=== PATIENT | male | born 1985 | race Caucasian/White ===

== ENCOUNTER 2016-07-16 07:04 | Inpatient (IN) | payer OTHER ==
[~2016-07-16] VITALS: Ht 180.3 cm; Wt 68.6 kg
[~2016-07-16 07:04] MED LIST: ERGO500014 PO; FER325 PO; LIPA1CAP6 PO
[2016-07-16] MEDS ORDERED: BELLADONNA/PHENOBARBITAL TAB PO STA (08:15)
[2016-07-16] MEDS ORDERED: SOD CHLORIDE 0.9% 1,000 ML IV STA (08:15)
[2016-07-16] MEDS ORDERED: ONDANSETRON 4 MG INJ IV STA (08:15)
[2016-07-16] MEDS ORDERED: LIDOCAINE/MYLANTA 40 ML BTL PO STA (08:15)
[2016-07-16] MEDS ORDERED: DICLOFENAC SODIUM 37.5 MG/ML VIAL IV STA (08:15)
[2016-07-16 08:19] LABS: ADD SCAN DIFF NO
[2016-07-16 08:32] LABS: BASOPHIL # 0.1 10^3/ul (0.0-0.1); BASOPHILS % 0.7 % (0.0-2.0); EOSINOPHILS # 0.1 10^3/ul (0.0-0.5); EOSINOPHILS % 1.2 % (0.0-7.0); HEMATOCRIT 46.4 % (42.0-52.0); HEMOGLOBIN 15.9 g/dl (14.0-18.0); LYMPHOCYTES # 3.6 10^3/ul (0.8-2.9); LYMPHOCYTES % 35.3 % (15.0-51.0); MEAN CORPUSCULAR HEMOGLOBIN 31.4 pg (29.0-33.0); MEAN CORPUSCULAR HGB CONC 34.3 g/dl (32.0-37.0); MEAN CORPUSCULAR VOLUME 91.7 fl (82.0-101.0); MEAN PLATELET VOLUME 9.6 fl (7.4-10.4); MONOCYTE # 1.5 10^3/ul (0.3-0.9); MONOCYTES % 14.5 % (0.0-11.0); NEUTROPHIL # 4.9 10^3/ul (1.6-7.5); NEUTROPHILS % 48.1 % (39.0-77.0); PLATELET COUNT 292 10^3/UL (140-415); RED BLOOD COUNT 5.06 10^6/ul (4.70-6.10); RED CELL DISTRIBUTION WIDTH 15.3 % (11.5-14.5); WHITE BLOOD COUNT 10.2 10^3/ul (4.8-10.8)
[2016-07-16 08:38] LABS: ALBUMIN 4.1 g/dl (3.3-4.9); CHLORIDE 103 mmol/L (97-110)
[2016-07-16 08:39] LABS: POTASSIUM 4.2 mmol/L (3.5-5.1); SODIUM 146 mmol/L (135-144)
[2016-07-16 08:41] LABS: ALANINE AMINOTRANSFERASE 37 IU/L (13-69); ALKALINE PHOSPHATASE 105 IU/L (42-121); ANION GAP 21 (8-16); ASPARTATE AMINO TRANSFERASE 60 IU/L (15-46); BILIRUBIN,INDIRECT 0.2 mg/dl (0-1.1); BILIRUBIN,TOTAL 0.2 mg/dl (0.2-1.3); BLOOD UREA NITROGEN 10 mg/dl (7-20); CALCIUM 8.8 mg/dl (8.4-10.2); CARBON DIOXIDE 26 mmol/L (21-31); CREATININE 0.72 mg/dl (0.61-1.24); GLUCOSE 91 mg/dl (70-220); TOTAL PROTEIN 7.8 g/dl (6.1-8.1)
[2016-07-16 08:53] LABS: INR 0.97; PROTIME 12.9 Sec (12.2-14.2)
[2016-07-16 08:56] LABS: TROPONIN-I < 0.012 ng/ml (0.00-0.12)
[2016-07-16] MEDS ORDERED: HYDR-902 PO (08:59)
[2016-07-16] MEDS ORDERED: ZOF8 PO (08:59)
[2016-07-16] MEDS ORDERED: ALPR1TAB2 PO (08:59)
[2016-07-16] MEDS ORDERED: OMEP20CA16 PO (09:00)
[2016-07-16 09:14] LABS: ADD UMIC YES; URINE BILIRUBIN (Dip) NEGATIVE (NEGATIVE); URINE BLOOD (Dip) TRACE (NEGATIVE); URINE COLOR LT. YELLOW (YELLOW); URINE GLUCOSE (Dip) NEGATIVE (NEGATIVE); URINE KETONES (Dip) NEGATIVE (NEGATIVE); URINE LEUKOCYTE ESTERASE (Dip) NEGATIVE (NEGATIVE); URINE NITRITE (Dip) NEGATIVE (NEGATIVE); URINE TOTAL PROTEIN (Dip) NEGATIVE (NEGATIVE); URINE UROBILINOGEN (Dip) 0.2 E.U./dL (0.1-1.0)
[2016-07-16 09:31] LABS: URINE RBCS 0-2 /HPF (0)
[2016-07-16] MEDS ORDERED: FAMO40TA52 PO (09:57)
[2016-07-16] MEDS ORDERED: MAG355OR14 PO (09:57)
[2016-07-16] MEDS ORDERED: ONDA-43 PO (09:57)
--- NOTE | 2016-07-16 10:02 | ERD ---
ER Documentation Chief Complaint Date/Time DATE: 07/16/16 TIME: 09:57 Chief Complaint ap, hx pancreatitis , daily etoh HPI 30-year-old man brought in by his mom for complaints of sharp nonexertional nonradiating epigastric abdominal pain as well as multiple episodes of clear nonbloody nonbilious emesis, he feels weak and has not been able to hold anything down. He denies diarrhea, no melena or blood per rectum, no fevers or chills, no chest pain or shortness of breath. 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 ROS All systems reviewed and are negative except as per history of present illness. Medications Home Meds Active Scripts Ondansetron Hcl* (Zofran*) 4 Mg Tab, 4 MG PO Q6H Y for NAUSEA AND OR VOMITING, # 12 TAB Prov:GLENN LOPEZ MD 07/16/16 Mag Hydrox/Al Hydrox/Simeth (Maalox Advanced Suspension) 355 Ml Oral.susp, 2 TSP PO TID for PAIN, #24 OZ Prov:GLENN LOPEZ MD 07/16/16 Famotidine* (Famotidine*) 40 Mg Tablet, 40 MG PO HS, #30 TAB Prov:GLENN LOPEZ MD 07/16/16 Reported Medications Omeprazole* (Omeprazole*) 20 Mg Capsule.dr, 20 MG PO DAILY, #30 CAP 07/16/16 Ondansetron Hcl* (Zofran*) 8 Mg Tab, 8 MG PO Q6H Y for NAUSEA AND OR VOMITING, TAB 07/16/16 Hydrocodone/Acetaminophen ([place] 10-325 Tablet) 1 Each Tablet, 1 EACH PO TID Y for PAIN, TAB 07/16/16 Alprazolam* (Xanax*) 1 Mg Tab, 1 MG PO Q8H Y for ANXIETY, TAB 07/16/16 Yfgqzz-Sjzqoaca-Vbbqwhs* (Sharon MICHAUD* 24,000) 24,000 L-76,000-120,000 Unit Capsule.dr, 1 CAP PO WITH MEALS, CAP 07/21/14 Discontinued Reported Medications Ergocalciferol* (Drisdol* (Vitamin D2)) 50,000 Unit Capsule, 33583 UNIT PO Q7D, CAP 07/30/15 Ferrous Sulfate* (Ferrous Sulfate*) 325 Mg Tabec, 325 MG PO TID, TAB 07/30/15 Allergies Allergies: Coded Allergies: morphine (Verified Allergy, Intermediate, itchy, hives, 07/16/16) PMhx/Soc Alcoholic gastritis, alcohol abuse, recurrent pancreatitis, chronic pain syndrome, opioid abuse, 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 History of Surgery: Yes (2013 PARTIAL PANCREOTOMY, 2007 GALLBLADDER REMOVAL) Anesthesia Reaction: No Hx Neurological Disorder: No Hx Respiratory Disorders: No Hx Cardiac Disorders: No Hx Psychiatric Problems: No Hx Miscellaneous Medical Probl: Yes (pabncreatitis and etohism) Hx Alcohol Use: Yes (1 wk of binge drinking) Hx Substance Use: Yes (MARIJUANA daily) Hx Tobacco Use: No Smoking Status: Never smoker FmHx Family History: No diabetes Physical Exam Vitals Vital Signs Date Time Temp Pulse Resp B/P Pulse Ox O2 Delivery O2 Flow Rate FiO2 07/16/16 10:00 98.1 76 18 132/86 99 07/16/16 07:06 98.1 78 18 136/90 99 Physical Exam GENERAL: Well-developed, well-nourished, appears dehydrated, afebrile HEENT: Dry mucous membranes, pink conjunctiva, no cervical spine tenderness or step-off deformities, no goiter, no jaundice or icterus, extraocular movements intact without pain. No submandibular induration, and no pharyngeal erythema NEURO: Alert and oriented 3, cranial nerves II through XII intact bilaterally, pupils equal round reactive to light, no focal deficits or facial asymmetry, sensation intact distally Strength 5/5 in upper and lower extremities bilaterally CARDIAC: Regular rate and rhythm, no murmurs rubs or gallops LUNGS: Clear bilaterally no wheezing crackles or stridor ABDOMEN: Soft nontender, no guarding, no rigidity, no rebound, no psoas sign no obturator sign. Normoactive bowel sounds SKIN: Warm and dry to touch, no abrasions, contusions, or hematomas, no lacerations, no ecchymosis, no target lesions, and without ulcers EXTREMITIES: No clubbing cyanosis or edema, calves are bilaterally symmetrical, no Homans sign, no popliteal cord sign. Distal pulses equal and bilateral PSYCH: Normal affect without agitation or irritability Result Diagram: 07/16/16 0746 07/16/16 0746 Results 24 hrs Laboratory Tests Test 07/16/16 07:46 07/16/16 08:00 Alanine Aminotransferase (ALT/SGPT) 37IU/L Albumin 4.1g/dl Albumin/Globulin Ratio 1.10 Alkaline Phosphatase 105IU/L Anion Gap 21 Aspartate Amino Transf (AST/SGOT) 60IU/L Basophils # 0.110^3/ul Basophils % 0.7% Blood Urea Nitrogen 10mg/dl Calcium Level 8.8mg/dl Carbon Dioxide Level 26mmol/L Chloride Level 103mmol/L Creatinine 0.72mg/dl Direct Bilirubin 0.00mg/dl Eosinophils # 0.110^3/ul Eosinophils % 1.2% Globulin 3.70g/dl Glucose Level 91mg/dl Hematocrit 46.4% Hemoglobin 15.9g/dl INR International Normalized Ratio 0.97 Indirect Bilirubin 0.2mg/dl Lipase 209U/L Lymphocytes # 3.610^3/ul Lymphocytes % 35.3% Mean Corpuscular Hemoglobin 31.4pg Mean Corpuscular Hemoglobin Concent 34.3g/dl Mean Corpuscular Volume 91.7fl Mean Platelet Volume 9.6fl Monocytes # 1.510^3/ul Monocytes % 14.5% Neutrophils # 4.910^3/ul Neutrophils % 48.1% Nucleated Red Blood Cells # 0.010^3/ul Nucleated Red Blood Cells % 0.0/100WBC Platelet Count 89225^3/UL Potassium Level 4.2mmol/L Prothrombin Time 12.9Sec Prothrombin Time Ratio 1.0 Red Blood Count 5.0610^6/ul Red Cell Distribution Width 15.3% Sodium Level 146mmol/L Total Bilirubin 0.2mg/dl Total Protein 7.8g/dl Troponin I < 0.012ng/ml White Blood Count 10.210^3/ul Urine Bilirubin NEGATIVE Urine Clarity CLEAR Urine Color LT. YELLOW Urine Glucose NEGATIVE% Urine Hemoglobin TRACE Urine Ketones NEGATIVE Urine Leukocyte Esterase NEGATIVE Urine Microscopic RBC 0-2/HPF Urine Microscopic WBC 0-2/HPF Urine Nitrite NEGATIVE Urine Specific [place] <=1.005 Urine Total Protein NEGATIVE Urine Urobilinogen 0.2 E.U./dL Urine pH 5.5 Current Medications Medications (Trade) Dose Ordered Sig/Desiree Route PRN Reason Start Time Stop Time Status Last Admin Dose Admin Diclofenac Sodium 37.5 mg 37.5 mg ONCE STAT IV 07/16/16 08:15 07/16/16 08:16 DC 07/16/16 08:35 Sodium Chloride (NS) 1,000 ml @ 2,000 mls/hr Q30M STAT IV 07/16/16 08:15 07/16/16 08:44 DC 07/16/16 08:34 Ondansetron HCl (Zofran Inj) 4 mg ONCE STAT IV 07/16/16 08:15 07/16/16 08:16 DC 07/16/16 08:35 Miscellaneous Medication (Gi Cocktail (2)) 40 ml ONCE STAT PO 07/16/16 08:15 07/16/16 08:16 DC 07/16/16 08:34 Belladonna/ Phenobarbital () 2 tab ONCE STAT PO 07/16/16 08:15 07/16/16 08:16 DC 07/16/16 08:35 Oxycodone/ Acetaminophen (Percocet (5/ 325)) 1 tab ONCE ONCE PO 07/16/16 11:30 07/16/16 11:31 DC 07/16/16 11:27 Procedures/MDM IV line was established 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 Patient was afebrile. EKG performed, read by me: 69 bpm, normal sinus rhythm, normal axis, no acute ST segment changes, narrow QRS complex, with good R-wave progression in precordial leads. I administered diclofenac 38 mg IV 1, 2 L normal saline intravenously for dehydration, Zofran 4 mg IV, and a GI cocktail 30 cc p.o. with good effect. CBC and electrolytes were normal, liver function tests were normal, troponin was negative. Lipase was normal For continued pain I administered Percocet [address] scan of abdomen pelvis revealed distention of the anastomosis site and partial bowel obstruction. Please refer to radiologist dictation for full report. I obtain GI consultation with Dr. Carlson, regarding the patient's presentation, symptomatology, and CT scan findings. He recommended inpatient management for continued IV hydration and both GI and surgery consultation. Dr. Torres surgeon has been paged. Departure Diagnosis: Primary Impression: Vomiting Vomiting type: unspecified Vomiting Intractability: non-intractable Nausea presence: with nausea Qualified Code: R11.2 - Non-intractable vomiting with nausea, unspecified vomiting type Additional Impressions: Dehydration Alcoholic Alcoholic gastritis Chronicity: acute Gastritis bleeding: without bleeding Qualified Code: K29.20 - Acute alcoholic gastritis without hemorrhage Opioid abuse Chronic pain Chronic pain type: chronic pain syndrome Qualified Code: G89.4 - Chronic pain syndrome Condition: Good Patient Instructions: Gastritis (Adult), Vomiting (6Y-Adult), Alcohol Abuse GLENN LOPEZ MD Jul 16, 2016 10:02
--- NOTE | 2016-07-16 11:01 | RADRPT ---
PROCEDURE: CT Abdomen and Pelvis without contrast CLINICAL INDICATION: Abdominal pain, history of pancreatitis TECHNIQUE: Transaxial images were obtained through the abdomen and pelvis on a multi-slice scanner without the intravenous contrast administration. No oral contrast had previously been given. Sagit simon and coronal re-formations were subsequently reconstructed. One or more of the following dose reduction techniques were used: - Automated exposure control. - Adjustment of the mA and/or kV according to patient size. - Use of iterative reconstruction technique. Radiation dose: CTDIvol = 7.63 mGy; DLP = 449.46 mGy-cm. COMPARISON: 07/30/2015 FINDINGS: Lung bases: Discoid atelectasis is seen in the right middle lobe and minimally within the lateral le ft lower lung zone. Liver: The liver is mildly enlarged with no focal lesion identified. There is fatty infiltration of the left lobe. Gallbladder: Surgical allison are seen in the gallbladder fossa. Bile ducts: The intra and extrahepatic bile ducts are normal in caliber. Pancreas: No pancreatic mass or inflammation is identified. Spleen: The spleen is again surgically absent. Adrenals: Normal with no mass identified. Kidneys, ureters and bladder: A 9 mm dense nodule is seen extend superiorly off the medial superior pole of the left kidney which may represent a complex cyst. The kidneys are otherwise unremarkable without hydronephrosis. The ureters are normal in caliber and no ureteroliths are identified. The bl adder appears unremarkable. A surgical allison seen superior to the bladder. Reproductive organs: The prostate is not enlarged. Stomach and bowel: The stomach appears unremarkable. An anastomotic allison are seen within the jej unum within the left upper quadrant associated with mild dilatation of bowel measuring approximately 4.3 cm in cross diameter. This suggests a low grade partial obstruction. The more distal small martínez wel appears unremarkable. Stool is seen within the colon without evidence of colonic obstruction or inflammation. Appendix: A normal vermiform appendix is evident. Peritoneum: No free intraperitoneal fluid or air is identified. Aorta: Normal in caliber with no aneurysmal dilatation. IVC: Unremarkable. Lymph nodes: No pathologically enlarged nodes are identified. Osseous structures: Avendaño nodes are seen within the superior endplate of T11. IMPRESSION: 1. When compared to the previous CT of 07/30/2015, anastomotic allison are again seen within jejunu m and there is somewhat increased dilatation of jejunum at the site up to 4.3 cm in cross diameter s uspicious for a low grade partial obstruction. Stool is again seen to the colon and there is no jennifer dence of bowel inflammation. A normal vermiform appendix is evident. 2. Status post splenectomy and cholecystectomy, unchanged. No bile duct dilatation is evident and no pancreatic mass or inflammation is noted. 3. Mild persistent hepatomegaly with heterogeneous fatty infiltration. 4. A 9 mm dense nodule again extends off the superior pole left kidney which may represent a hemorr hagic or complex cyst. There is no evidence of urinary outflow obstruction or ureterolithiasis. 4. Schmorl's node again seen at the superior endplate of T11. Physician Rosalva Date Time Electronically viewed and signed by Physician Rosalva on 07/16/2016 11:00 /
[2016-07-16] MEDS ORDERED: OXYCODONE/ACETAMINOPHEN (5/325) TAB PO ONE (11:30)
[2016-07-16] MEDS ORDERED: LIDOCAINE 2% VISC 15 ML CUP PO ONE (13:00)
[2016-07-16 13:03] VITALS: TEMP 98.1
[2016-07-16 13:30] VITALS: BP 137/86; PULSE 85; RESP 18; Ht 180.3 cm; Wt 68.6 kg
[2016-07-16] MEDS ORDERED: HYDROmorphONE 1 MG/ML SYG IV PRN ×2 (14:00→18:00)
[2016-07-16] MEDS: D5W-0.45 NACL + KCL 10 MEQ 1,000 ML IV SCH ×2 (14:00→23:12)
[2016-07-16] MEDS ORDERED: NACL 0.9% 3 ML SYG IV SCH (14:00)
--- NOTE | 2016-07-16 16:14 | HP ---
DATE OF ADMISSION: 07/16/2016 REASON FOR ADMISSION: Abdominal pain with associated nausea and vomiting. CONSULTANTS: Surgery HISTORY OF PRESENT ILLNESS: This is a 30-year-old male with a past medical history of chronic pancreatitis, status post multiple abdominal surgeries including distal pancreatectomy, splenectomy, and cholecystectomy, who came to the emergency room with chief complaint of sharp, nonexertional, nonradiating epigastric abdominal pain as well as multiple episodes of nonbloody, nonbilious emesis that has been going on for the past 1 week. The patient verbalized that he has been drinking beer on a regular basis. The patient also verbalized a few episodes of diarrhea. The patient verbalized subjective fevers and chills. The patient denied any chest pain, headache, dyspnea, dysuria, hematuria or pyuria. In the emergency room, the patient's labs were within normal limits except the patient had a slightly elevated AST. The patient underwent a CT scan of the abdomen and pelvis that showed anastomotic allison seen with the jejunum and there is somewhat increased dilatation of the jejunum at the site up to 4.3 cm in gross diameter, suspicious for a low-grade partial small-bowel obstruction. Hence, the patient had an NG tube inserted in the emergency room and the patient was transferred to medical/surgical floor. PAST MEDICAL HISTORY: Alcoholic pancreatitis. ETOH abuse. Anxiety. Chronic pain. PAST SURGICAL HISTORY: Pancreatectomy, cholecystectomy, splenectomy. HOME MEDICATIONS: 1. Xanax 1 mg p.o. q.8h. p.r.n. anxiety. 2. Star 10/325 one tablet p.o. t.i.d. p.r.n. pain. 3. Famotidine 10 mg p.o. at bedtime. 4. Creon DR 1 capsule p.o. with meals. 5. Zofran 8 mg p.o. q.6h. p.r.n. nausea, vomiting. ALLERGIES: MORPHINE. SOCIAL HISTORY: The patient lives at home with his mom. The patient continues to drink on a daily basis. Daily marijuana use. No tobacco use. REVIEW OF SYSTEMS: A 12-point review of systems were made and review of systems are negative other than what is mentioned in the history of present illness. PHYSICAL EXAMINATION: VITAL SIGNS: Temperature 98.1, pulse is 74, respiratory rate 18, blood pressure 144/82, oxygen saturation 99% on room air. GENERAL: This is a well-built, well-nourished male lying in bed, in mild distress secondary to underlying abdominal pain. HEENT: Head normocephalic and atraumatic. Eyes: Anicteric sclerae. Conjunctivae clear. ENT: Nasal septum is midline. NG tube in the naris. Oral mucosa is dry. NECK: Supple. No JVD noticed. RESPIRATORY: Bilaterally clear to auscultation. No adventitious breath sounds. No use of accessory muscles of respiration. CARDIAC: Regular rate and rhythm. No murmurs. ABDOMEN: Multiple surgical scars on the abdomen. Diffuse abdominal tenderness. EXTREMITIES: No cyanosis, no clubbing, no edema. Peripheral pulses palpable. NEUROLOGIC: The patient is awake, alert and oriented. Cranial nerves are grossly intact. LABORATORY AND DIAGNOSTIC DATA: WBC 10.2, hemoglobin 15.9, hematocrit 46.4, platelet count 292. Sodium 146, potassium 4.0, chloride 103, carbon dioxide 26 , anion gap 21, BUN 10, creatinine 0.72, glucose 91, calcium 8.8. AST 60, ALT 37, alkaline phosphatase 105, total protein 7.8. Troponin less than 0.012. PT 12.9, INR 0.95. Urinalysis: Urine nitrite negative, leukocyte esterase negative. Urine microscopic WBC 0-2. CT scan of the abdomen and pelvis: Anastomotic allison are seen with the jejunum and there is somewhat increased dilatation of the jejunum at the site up 4.3 cm in gross diameter, suspicious for a low-grade partial obstruction. Stool is again seen through the colon and there is no evidence of bowel inflammation. A normal appendix is evident. Status post splenectomy and cholecystectomy. Mild persistent hepatomegaly and hypodense fatty infiltration. IMPRESSION: This is a 30-year-old male with past medical history of alcoholism, chronic pancreatitis, status post pancreatectomy, cholecystectomy and splenectomy, who came to the emergency room with chief complaint of abdominal pain with associated multiple episodes of nonbilious and nonbloody vomiting, who was found to have evidence of possible early low-grade partial bowel obstruction who will be admitted here for further treatment and evaluation. ASSESSMENT AND PLAN: 1. Acute abdominal pain. CT showing possible low-grade partial small-bowel obstruction. The patient has an NG tube in place. The patient will be kept n.p.o. The patient will be maintained on NG tube decompression. The patient will be provided with adequate pain control. General surgery will be consulting on this patient. 2. ETOH abuse. The patient will be maintained on p.r.n. Ativan for any anxiety. The patient will be started on a tapering dose of Librium. He will be closely monitored for any alcohol withdrawal delirium. 3. Chronic pain. The patient will be provided with adequate pain control. Plan. The patient will be admitted to inpatient medical/surgical floor. The patient will be kept n.p.o. The patient will be started on DVT prophylaxis and gastrointestinal prophylaxis. The patient will remain a full code. Activities will be with assist. The rest of the patient's management will be based on the clinical course, the results of the diagnostic studies, and input from consultants. Based on the patient's clinical presentation, he most probably requires at least 1 midnight's stay for further management and evaluation of his clinical presentation. The case and management of this patient was fully discussed with Dr. Carvalho. Approximately 50 minutes were spent on the history and physical on this patient. MARTIN CARVALHO MD, AM/ARBEN Conf#: [id number] DID#: [id number] MTDD
[2016-07-16] MEDS: ONDANSETRON 4 MG INJ IV PRN ×2 (16:19→23:07)
--- NOTE | 2016-07-16 16:34 | CONS ---
Date/Time of Note Date/Time of Note DATE: 07/16/16 TIME: 16:12 Assessment/Plan Assessment/Plan Additional Assessment/Plan [facility] SUBSEQUENT INPATIENT CONSULTATION NOTE PLACE OF SERVICE: [facility], 6th floor DATE OF ADMISSION: 07/16/16 DATE OF CONSULTATION: 07/16/16 ASSESSMENT AND PLAN: A very pleasant 30-year-old gentleman, well known to me since August 2012 with a very complex past medical and surgical history, who was admitted through the emergency department to [facility] on 02/22 with what appears to be abdominal pain. I do not believe he has a surgical bowel obstruction (CT and his clinical presentation does not support this). I recommend upper GI with SBFT and to d/c NG likely today after above. GI consultation will likely also help since he may need endoscopy to further delineate. There is certainly no indication for acute surgical intervention. I' ve explained all of this to the patient and answered all his questions to the best my ability. With above assessment, I've recommend the followin. Upper GI with SBFT 2. D/c NG 3. Consider GI consultation (? need for EGD to eval for ulcer disease) Thank you very much for having me involved in the care of this very pleasant young gentleman and his wonderful family. I will be available to answer any questions at area [phone]. TOTAL VISIT TIME: 45 minutes of which more than half was spent in [id number] discussion with the patient (no family present during my discussions with patient), as well as coordination of care between multiple physicians and providers. Updated Clinical Summary: The patient is a very pleasant 28-year-old young man, very well known to me and my service over the course of the last 2.5 years for treatment of chronic pancreatitis that involved several operative interventions including a distal pancreatectomy and splenectomy followed by a distal pancreatic jejunostomy. Initially the patient was suffering from chronic pancreatitis due to alcoholism that he started when he was a young 14-year-old. 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 After this, he had a 6 year period where he was in and out of the hospital every few weeks and multiple diagnostic tests and interventions were done until we had a chance to see him, and over the course of the next year and a half to 2 years, managed to get his chronic pancreatitis issues settled with above operative interventions. In 2016 and 2017, patient started having more visits through the ED and being hospitalized with reported resumption of ETOH. Comorbidities: 1. History of chronic pancreatitis, due to prior alcoholism, status post major pancreatitis at age 20 and then 6 years of chronic pain, multiple interventions , until he underwent the above named operations. 2. History of pain medication addiction and pain intolerance. 3. History of malnutrition, although the patient has been putting on more weight in the last number of months and does not seem to be suffering from this any longer. 4. History of anxiety. 5. 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 6. History of depression 7. Cholecystectomy, splenectomy and distal pancreatectomy. 8. Distal pancreatic jejunostomy. HISTORY OF PRESENT ILLNESS: Patient was admitted through the emergency department to [facility] 07/16/16 with abdominal pain. No fevers and chills, no change in bowel or bladder habits, no other major symptom. ALLERGIES: REPORTEDLY MORPHINE WITH UNKNOWN REACTION MEDICATIONS See below and EHR summary. SOCIAL HISTORY: The patient lives with his family. He has used alcohol in the past, had been sober for the a few years with resumption of ETOH as of a few months ago. There has been no history of known smoking or intravenous drug use. He also has been treated with a pain specialist clinic as an outpatient as well. FAMILY HISTORY: There are no significant medical, surgical or oncologic issues in the family as reported by the patient or reflected in the chart. REVIEW OF SYSTEMS: No pertinent +'s or -'s in a complete 14-point review of systems. PHYSICAL EXAMINATION GENERAL: The patient appears to be a very pleasant young gentleman of descent lying in bed, appearing stated age, WD&WN and otherwise in no acute distress. BMI 25.7 (previously 16.3 in 2015). VITAL SIGNS: AVSS (please also see below) HEENT: Normocephalic and atraumatic. Extraocular muscles and hearing are grossly intact bilaterally and symmetrically. Sclerae are nonicteric. Oral cavity is clear; oral mucosa appear to be pink and moist. Dentition: fair. NECK: Supple. There is no lymphadenopathy or JVD. There is no submental, submandibular or supraclavicular lymphadenopathy. CHEST: Rises symmetrically with each breath; patient is breathing comfortably. There are no audible wheezes, rales or rhonchi on the gross exam. HEART: Pulse is regular and palpable on the right wrist. Capillary refill is normal. Carotid pulses are palpable bilaterally and symmetrically in the neck. EXTREMITIES: Lower extremities contain no pitting edema around the ankles bilaterally and symmetrically. ABDOMEN: Abdomen is soft, for the most part nontender and nondistended. No evidence of ascites, organomegaly, caput medusae, engorged subcutaneous veins, or other abnormalities. There are no peritoneal signs or guarding. NG with no major output. SKIN: Appears to be pink and feels warm to touch. NEUROLOGIC: Awake, alert, and follows commands appropriately. LABORATORY DATA: See below IMAGING: See electronic chart. Please note that I've personally reviewed all pertinent available images and I agree in general with their overall reported findings. Consultation Date/Type/Reason Admit Date/Time Jul 16, 2016 at 13:15 Initial Consult Date Exam/Review of Systems Vital Signs Vitals Vital Signs Date Time Temp Pulse Resp B/P Pulse Ox O2 Delivery O2 Flow Rate FiO2 07/16/16 13:03 98.1 74 18 144/82 99 Results Result Diagram: 07/16/16 0746 07/16/16 0746 Results 24 hrs Laboratory Tests Test 07/16/16 07:46 07/16/16 08:00 Alanine Aminotransferase (ALT/SGPT) 37 Albumin 4.1 Albumin/Globulin Ratio 1.10 Alkaline Phosphatase 105 Anion Gap 21 H Aspartate Amino Transf (AST/SGOT) 60 H Basophils # 0.1 Basophils % 0.7 Blood Urea Nitrogen 10 Calcium Level 8.8 Carbon Dioxide Level 26 Chloride Level 103 Creatinine 0.72 Direct Bilirubin 0.00 Eosinophils # 0.1 Eosinophils % 1.2 Globulin 3.70 H Glucose Level 91 Hematocrit 46.4 Hemoglobin 15.9 # INR International Normalized Ratio 0.97 Indirect Bilirubin 0.2 Lipase 209 Lymphocytes # 3.6 H Lymphocytes % 35.3 Mean Corpuscular Hemoglobin 31.4 Mean Corpuscular Hemoglobin Concent 34.3 Mean Corpuscular Volume 91.7 Mean Platelet Volume 9.6 Monocytes # 1.5 H Monocytes % 14.5 H Neutrophils # 4.9 Neutrophils % 48.1 Nucleated Red Blood Cells # 0.0 Nucleated Red Blood Cells % 0.0 Platelet Count 292 Potassium Level 4.2 Prothrombin Time 12.9 Prothrombin Time Ratio 1.0 Red Blood Count 5.06 Red Cell Distribution Width 15.3 H Sodium Level 146 H Total Bilirubin 0.2 Total Protein 7.8 Troponin I < 0.012 White Blood Count 10.2 # Urine Bilirubin NEGATIVE Urine Clarity CLEAR Urine Color LT. YELLOW Urine Glucose NEGATIVE Urine Hemoglobin TRACE Urine Ketones NEGATIVE Urine Leukocyte Esterase NEGATIVE Urine Microscopic RBC 0-2 Urine Microscopic WBC 0-2 Urine Nitrite NEGATIVE Urine Specific [place] <=1.005 L Urine Total Protein NEGATIVE Urine Urobilinogen 0.2 E.U./dL Urine pH 5.5 Medications Medications Current Medications Potassium Chloride/Dextrose/ Sod Cl (D5-1/2ns + KCl 10 Meq) 1,000 ml @ 100 mls/ hr Q10H IV ; Start 07/16/16 at 14:00 Hydromorphone HCl (Dilaudid) 1 mg Q6H PRN IV PAIN Last administered on t 13:57; Admin Dose 1 MG; Start 07/16/16 at 14:00 Ondansetron HCl (Zofran Inj) 4 mg Q6H PRN IV NAUSEA AND/OR VOMITING; Start 02/22 at 14:00 Famotidine (Pepcid Iv) 20 mg Q12 IV ; Start 07/16/16 at 21:00 Lorazepam (Ativan) 1 mg Q2H PRN IV Anxiety; Start 07/16/16 at 14:00 Chlordiazepoxide (Librium) 50 mg TID NGT ; Start 07/16/16 at 21:00 NILS JO M.D. Jul 16, 2016 16:34
[2016-07-16] MEDS: HYDROmorphONE 1 MG/ML SYG IV PRN ×2 (19:02→23:07)
[2016-07-16 20:55] VITALS: BP 155/93; RESP 18
[2016-07-16] MEDS: FAMOTIDINE 20 MG INJ IV SCH (21:27)
[2016-07-16] MEDS: CHLORDIAZEPOXIDE 25 MG CAP NGT SCH (21:27)
[2016-07-17] MEDS: HYDROmorphONE 1 MG/ML SYG IV PRN ×6 (03:09→23:03)
[2016-07-17 05:46] LABS: ADD SCAN DIFF NO
[2016-07-17] MEDS ORDERED: CEPASTAT LOZENGE MT PRN (06:15)
[2016-07-17 06:17] LABS: ALBUMIN 3.7 g/dl (3.3-4.9)
[2016-07-17 06:18] LABS: POTASSIUM 3.9 mmol/L (3.5-5.1)
[2016-07-17 06:19] LABS: ABNORMAL IP MESSAGE 1; BASOPHIL # 0.1 10^3/ul (0.0-0.1); BASOPHILS % 0.4 % (0.0-2.0); EOSINOPHILS # 0.1 10^3/ul (0.0-0.5); EOSINOPHILS % 0.7 % (0.0-7.0); HEMATOCRIT 44.6 % (42.0-52.0); HEMOGLOBIN 14.8 g/dl (14.0-18.0); LYMPHOCYTES # 2.3 10^3/ul (0.8-2.9); LYMPHOCYTES % 14.3 % (15.0-51.0); MEAN CORPUSCULAR HEMOGLOBIN 31.6 pg (29.0-33.0); MEAN CORPUSCULAR HGB CONC 33.2 g/dl (32.0-37.0); MEAN CORPUSCULAR VOLUME 95.3 fl (82.0-101.0); MEAN PLATELET VOLUME 9.9 fl (7.4-10.4); MONOCYTE # 1.8 10^3/ul (0.3-0.9); MONOCYTES % 11.2 % (0.0-11.0); NEUTROPHIL # 11.6 10^3/ul (1.6-7.5); NEUTROPHILS % 73.1 % (39.0-77.0); PLATELET COUNT 260 10^3/UL (140-415); RED BLOOD COUNT 4.68 10^6/ul (4.70-6.10); WHITE BLOOD COUNT 15.8 10^3/ul (4.8-10.8)
[2016-07-17 06:19] LABS: CHOL/HDL RATIO 1.5 RATIO; MAGNESIUM 1.8 mg/dl (1.7-2.5); PHOSPHORUS 3.7 mg/dl (2.5-4.9)
[2016-07-17 06:20] LABS: BILIRUBIN,INDIRECT 0.7 mg/dl (0-1.1); BILIRUBIN,TOTAL 0.7 mg/dl (0.2-1.3); CREATININE 0.69 mg/dl (0.61-1.24)
[2016-07-17 06:21] LABS: ALBUMIN/GLOBULIN RATIO 1.12; CALCIUM 7.9 mg/dl (8.4-10.2)
[2016-07-17 06:44] LABS: THYROID STIMULATING HORMONE 3.74 MIU/L (0.465-4.680)
[2016-07-17] MEDS: ONDANSETRON 4 MG INJ IV PRN ×2 (07:00→13:43)
[2016-07-17 07:25] VITALS: BP 150/95; RESP 18
[2016-07-17] MEDS: CHLORDIAZEPOXIDE 25 MG CAP NGT SCH ×3 (08:20→20:23)
[2016-07-17] MEDS: FAMOTIDINE 20 MG INJ IV SCH ×2 (08:20→20:23)
[2016-07-17] MEDS: D5W-0.45 NACL + KCL 10 MEQ 1,000 ML IV SCH ×3 (09:46→23:03)
--- NOTE | 2016-07-17 11:10 | PN ---
Date/Time of Note Date/Time of Note DATE: 07/17/16 TIME: 11:07 Assessment/Plan VTE Prophylaxis VTE Prophylaxis Intervention: SCD's Lines/Catheters IV Catheter Type (from Nrs): Peripheral IV Assessment/Plan Assessment/Plan 1. Acute abdominal pain. CT showing possible low-grade partial small-bowel obstruction. The patient has an NG tube in place. The patient will be kept n.p.o. The patient will be maintained on NG tube decompression. The patient will be provided with adequate pain control. General surgery will be consulting on this patient. 2. ETOH abuse. The patient will be maintained on p.r.n. Ativan for any anxiety. The patient will be started on a tapering dose of Librium. Social work consult will be ordered. Plan: NG tube discontinued banana bag daily UGI with SBF GI consult will follow up ativan prn Subjective 24 Hr Interval Summary Free Text/Dictation s/p Gen surgery consulted, Plan for GI consult NG tube discontinued Exam/Review of Systems Vital Signs Vitals Vital Signs Date Time Temp Pulse Resp B/P Pulse Ox O2 Delivery O2 Flow Rate FiO2 07/17/16 07:25 98.3 78 18 150/95 95 07/16/16 13:30 Room Air Intake and Output 07/16/16 07/16/16 07/17/16 15:00 23:00 07:00 Intake Total 500 ml 1100 ml Output Total 500 ml 500 ml Balance 0 ml 600 ml Exam GENERAL: This is a well-built, well-nourished male lying in bed, in mild distress secondary to underlying abdominal pain. HEENT: Head normocephalic and atraumatic. Eyes: Anicteric sclerae. Conjunctivae clear. ENT: Nasal septum is midline. NG tube in the naris. Oral mucosa is dry. NECK: Supple. No JVD noticed. RESPIRATORY: Bilaterally clear to auscultation. No adventitious breath sounds. No use of accessory muscles of respiration. CARDIAC: Regular rate and rhythm. No murmurs. ABDOMEN: Multiple surgical scars on the abdomen. Diffuse abdominal tenderness. EXTREMITIES: No cyanosis, no clubbing, no edema. Peripheral pulses palpable. NEUROLOGIC: The patient is awake, alert and oriented. Cranial nerves are grossly intact. Results Result Diagram: 07/17/16 0451 07/17/16 0451 Results 24 hrs Laboratory Tests Test 07/17/16 04:51 07/17/16 05:25 Alanine Aminotransferase (ALT/SGPT) 49 Albumin 3.7 Albumin/Globulin Ratio 1.12 Alkaline Phosphatase 107 Amylase Level 78 Anion Gap 16 Aspartate Amino Transf (AST/SGOT) 61 H Basophils # 0.1 Basophils % 0.4 Blood Urea Nitrogen 8 Calcium Level 7.9 L Carbon Dioxide Level 29 Chloride Level 100 Creatinine 0.69 Direct Bilirubin 0.00 Eosinophils # 0.1 Eosinophils % 0.7 Free Thyroxine 1.15 Globulin 3.30 H Glucose Level 89 Hematocrit 44.6 Hemoglobin 14.8 Hemoglobin A1c 5.4 Indirect Bilirubin 0.7 Lipase 61 Lymphocytes # 2.3 Lymphocytes % 14.3 L Mean Corpuscular Hemoglobin 31.6 Mean Corpuscular Hemoglobin Concent 33.2 Mean Corpuscular Volume 95.3 Mean Platelet Volume 9.9 Monocytes # 1.8 H Monocytes % 11.2 H Neutrophils # 11.6 H Neutrophils % 73.1 Nucleated Red Blood Cells # 0.0 Nucleated Red Blood Cells % 0.0 Platelet Count 260 Potassium Level 3.9 Red Blood Count 4.68 L Red Cell Distribution Width 16.0 H Sodium Level 141 Total Bilirubin 0.7 Total Protein 7.0 White Blood Count 15.8 #H Cholesterol Level 111 Cholesterol/HDL Ratio 1.5 HDL Cholesterol 74 H LDL Cholesterol, Calculated 16 Magnesium Level 1.8 Phosphorus Level 3.7 Thyroid Stimulating Hormone (TSH) 3.740 Triglycerides Level 105 Medications Medications Current Medications Potassium Chloride/Dextrose/ Sod Cl (D5-1/2ns + KCl 10 Meq) 1,000 ml @ 100 mls/ hr Q10H IV Last administered on 07/17/16 09:46; Admin Dose 100 MLS/HR; Start 07/16/16 at 14:00 Ondansetron HCl (Zofran Inj) 4 mg Q6H PRN IV NAUSEA AND/OR VOMITING Last administered on 07/17/16 07:00; Admin Dose 4 MG; Start 07/16/16 at 14:00 Famotidine (Pepcid Iv) 20 mg Q12 IV Last administered on 07/17/16 08:20; Admin Dose 20 MG; Start 07/16/16 at 21:00 Lorazepam (Ativan) 1 mg Q2H PRN IV Anxiety; Start 07/16/16 at 14:00 Chlordiazepoxide (Librium) 50 mg TID NGT Last administered on 07/17/16 08:20; Admin Dose 50 MG; Start 07/16/16 at 21:00 Hydromorphone HCl (Dilaudid) 1 mg Q4H PRN IV PAIN Last administered on 10:46; Admin Dose 1 MG; Start 07/16/16 at 19:00 Phenol (Cepastat Lozenge) 1 lozenge Q1H PRN MT SORE THROAT Last administered on 07/17/16 07:00; Admin Dose 1 LOZENGE; Start 07/17/16 at 06:15 JAMES KELLEY MD Jul 17, 2016 11:10
[2016-07-17] MEDS ORDERED: DIATR MEGLU/DIATRIZOATE SODIUM 120 ML BTL ONE (15:04)
--- NOTE | 2016-07-17 15:40 | CONS ---
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 * Chronic pain/opiate dependency * Superior mesenteric vein thrombosis/cavernous transformation of veins in the head of the pancreas * Anxiety/depression Plan: * Review small bowel follow-through, if no evidence of obstruction may discontinue nasogastric tube * Continue PPI therapy * Further recommendation will depend on findings as well as review of imaging studies Consultation Date/Type/Reason Admit Date/Time Jul 16, 2016 at 13:15 Date of Consultation: Jul 17, 2016 Type of Consultation: Gastroenterology Reason for Consultation * Abdominal pain Hx of Present Illness 30-year-old male with a complex past medical history with severe necrotizing pancreatitis August 2012, the patient was hospitalized for a prolonged period of time and underwent multiple lifesaving surgeries by Dr. JO. The patient has done relatively well until07/16/2016 when he developed significant left upper quadrant abdominal pain and presented in the emergency room. Evaluation emergency room could raise the possibility of bowel obstruction patient has received nasogastric decompression and has been hospitalized. Surgical consultation by has been performed and small bowel follow-through has been ordered to rule out small bowel obstruction which appears to be considered not likely. We are requested to assist and possible consider endoscopic evaluation of the epigastric intestinal tract pending results of imaging already requested. The patient at the present time is comfortable except for the discomfort associated with nasogastric tube placement. He does complain of abdominal pain which she describes as continuous, dull, located in the right upper quadrant and radiating towards the epigastrium. There is no associated nausea, vomiting. There is no evidence of overt gastrointestinal bleeding such as hematemesis, melena or hematochezia. Laboratories showed a normal amylase and lipase and normal liver function test. White blood cell count is slightly elevated. Imaging consisting of CT of the abdomen and pelvis shows: 1. When compared to the previous CT of 07/30/2015, anastomotic allison are again seen within jejunum and there is somewhat increased dilatation of jejunum at the site up to 4.3 cm in cross diameter suspicious for a low grade partial obstruction. Stool is again seen to the colon and there is no evidence of bowel inflammation. A normal vermiform appendix is evident. 2. Status post splenectomy and cholecystectomy, unchanged. No bile duct dilatation is evident and no pancreatic mass or inflammation is noted. 3. Mild persistent hepatomegaly with heterogeneous fatty infiltration. 4. A 9 mm dense nodule again extends off the superior pole left kidney which may represent a hemorrhagic or complex cyst. There is no evidence of urinary outflow obstruction or ureterolithiasis. 4. Schmorl's node again seen at the superior endplate of T11. The patient is awaiting small bowel follow-through today, we will follow closely , we agree with discontinuation of nasogastric tube with no evidence of bowel obstruction is present. 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 * Chronic pain/opiate dependency * Superior mesenteric vein thrombosis/cavernous transformation of veins in the head of the pancreas * Anxiety/depression Past Surgical History Past Surgical Hx: bowel resection, cholecystectomy, other (Partial pancreatectomy/pancreaticojejunostomy/splenectomy) Family History Significant Family History: no pertinent family hx Social History Alcohol Use: other (Previous heavy ethanol abuse) Smoking Status: Never smoker Drug Use: none Exam/Review of Systems Vital Signs Vitals Vital Signs Date Time Temp Pulse Resp B/P Pulse Ox O2 Delivery O2 Flow Rate FiO2 07/17/16 07:25 98.3 78 18 150/95 95 07/16/16 13:30 Room Air Intake and Output 07/16/16 07/16/16 07/17/16 15:00 23:00 07:00 Intake Total 500 ml 1100 ml Output Total 500 ml 500 ml Balance 0 ml 600 ml Exam Constitutional: alert, oriented, well developed Psych: nl mood/affect, no complaints Head: atraumatic, normocephalic Eyes: EOMI, PERRL, nl conjunctiva, nl lids, nl sclera ENMT: nl external ears & nose, nl lips & teeth, nl nasal mucosa & septum Neck: non-tender, supple Respiratory: clear to auscultation, normal air movement Cardiovascular: nl pulses, regular rate and rhythm Gastrointestinal: bowel sounds, nl liver, spleen, soft, surgical scars, tender (Right upper quadrant and epigastric area), No ascites, No distended, No firm, No hepatomegaly, No mass, No rebound or guarding Musculoskeletal: nl extremities to inspection, nl gait and stance Extremities: normal pulses Neurological: [employer] II-XII intact, nl mental status, nl speech, nl strength Skin: nl turgor, No rash or lesions Lymph: nl lymph nodes Results Result Diagram: 07/17/16 0451 07/17/16 0451 Results 24 hrs Laboratory Tests Test 07/17/16 04:51 07/17/16 05:25 Alanine Aminotransferase (ALT/SGPT) 49 Albumin 3.7 Albumin/Globulin Ratio 1.12 Alkaline Phosphatase 107 Amylase Level 78 Anion Gap 16 Aspartate Amino Transf (AST/SGOT) 61 H Basophils # 0.1 Basophils % 0.4 Blood Urea Nitrogen 8 Calcium Level 7.9 L Carbon Dioxide Level 29 Chloride Level 100 Creatinine 0.69 Direct Bilirubin 0.00 Eosinophils # 0.1 Eosinophils % 0.7 Free Thyroxine 1.15 Globulin 3.30 H Glucose Level 89 Hematocrit 44.6 Hemoglobin 14.8 Hemoglobin A1c 5.4 Indirect Bilirubin 0.7 Lipase 61 Lymphocytes # 2.3 Lymphocytes % 14.3 L Mean Corpuscular Hemoglobin 31.6 Mean Corpuscular Hemoglobin Concent 33.2 Mean Corpuscular Volume 95.3 Mean Platelet Volume 9.9 Monocytes # 1.8 H Monocytes % 11.2 H Neutrophils # 11.6 H Neutrophils % 73.1 Nucleated Red Blood Cells # 0.0 Nucleated Red Blood Cells % 0.0 Platelet Count 260 Potassium Level 3.9 Red Blood Count 4.68 L Red Cell Distribution Width 16.0 H Sodium Level 141 Total Bilirubin 0.7 Total Protein 7.0 White Blood Count 15.8 #H Cholesterol Level 111 Cholesterol/HDL Ratio 1.5 HDL Cholesterol 74 H LDL Cholesterol, Calculated 16 Magnesium Level 1.8 Phosphorus Level 3.7 Thyroid Stimulating Hormone (TSH) 3.740 Triglycerides Level 105 Medications Medications Current Medications Potassium Chloride/Dextrose/ Sod Cl (D5-1/2ns + KCl 10 Meq) 1,000 ml @ 75 mls/ hr [id number] IV Last administered on 07/17/16 09:46; Admin Dose 100 MLS/HR; Start 07/16/16 at 14:00 Ondansetron HCl (Zofran Inj) 4 mg Q6H PRN IV NAUSEA AND/OR VOMITING Last administered on 07/17/16 13:43; Admin Dose 4 MG; Start 07/16/16 at 14:00 Famotidine (Pepcid Iv) 20 mg Q12 IV Last administered on 07/17/16 08:20; Admin Dose 20 MG; Start 07/16/16 at 21:00 Lorazepam (Ativan) 1 mg Q2H PRN IV Anxiety; Start 07/16/16 at 14:00 Chlordiazepoxide (Librium) 50 mg TID NGT Last administered on 07/17/16 13:38; Admin Dose 50 MG; Start 07/16/16 at 21:00 Hydromorphone HCl (Dilaudid) 1 mg Q4H PRN IV PAIN Last administered on 15:07; Admin Dose 1 MG; Start 07/16/16 at 19:00 Phenol 1 lozenge 1 lozenge Q1H PRN MT SORE THROAT Last administered on 07:00; Admin Dose 1 LOZENGE; Start 07/17/16 at 06:15 Multivitamins/ Thiamine HCl/ Folic Acid/Sodium Chloride (Mvi-12 Adult/ Vitamin B1/Folic Acid/NS) 1,011.2 ml @ 125 mls/ hr DAILY@09 IVPB ; Start 07/18/16 at 09 :00 CALVIN JOHNSON MD Jul 17, 2016 15:37
--- NOTE | 2016-07-17 16:20 | PN ---
Date/Time of Note Date/Time of Note DATE: 07/17/16 TIME: 16:17 Assessment/Plan Lines/Catheters IV Catheter Type (from Nrs): Peripheral IV Assessment/Plan Assessment/Plan [facility] Progress Note Date of Service: 07/17/16 Today's Impression & Plan: Reportedly stable. Not in his room (likely going through SBFT). Further plans pending this study. With above assessment, I've recommend the followin. SBFT 2. D/c NG 3. Consider GI consultation (? need for EGD to eval for ulcer disease) Thank you very much for having me involved in the care of this very pleasant young gentleman and his wonderful family. I will be available to answer any questions at area [phone]. TOTAL VISIT TIME: 10 minutes of which more than half was spent in coordination of care between multiple physicians and providers. Updated Clinical Summary: The patient is a very pleasant 28-year-old young man, very well known to me and my service over the course of the last 2.5 years for treatment of chronic pancreatitis that involved several operative interventions including a distal pancreatectomy and splenectomy followed by a distal pancreatic jejunostomy. Initially the patient was suffering from chronic pancreatitis due to alcoholism that he started when he was a young 14-year-old. 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 After this, he had a 6 year period where he was in and out of the hospital every few weeks and multiple diagnostic tests and interventions were done until we had a chance to see him, and over the course of the next year and a half to 2 years, managed to get his chronic pancreatitis issues settled with above operative interventions. In 2016 and 2017, patient started having more visits through the ED and being hospitalized with reported resumption of ETOH. Comorbidities: 1. History of chronic pancreatitis, due to prior alcoholism, status post major pancreatitis at age 20 and then 6 years of chronic pain, multiple interventions , until he underwent the above named operations. 2. History of pain medication addiction and pain intolerance. 3. History of malnutrition, although the patient has been putting on more weight in the last number of months and does not seem to be suffering from this any longer. 4. History of anxiety. 5. 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 6. History of depression 7. Cholecystectomy, splenectomy and distal pancreatectomy. 8. Distal pancreatic jejunostomy. Subjective: No major reported events or complaints; no major reported abd pain; not in his room Objective: Vitals: See below Exam: Patient not in the room Exam/Review of Systems Vital Signs Vitals Vital Signs Date Time Temp Pulse Resp B/P Pulse Ox O2 Delivery O2 Flow Rate FiO2 07/17/16 07:25 98.3 78 18 150/95 95 07/16/16 13:30 Room Air Intake and Output 07/16/16 07/16/16 07/17/16 15:00 23:00 07:00 Intake Total 500 ml 1100 ml Output Total 500 ml 500 ml Balance 0 ml 600 ml Results Result Diagram: 07/17/16 0451 07/17/16 0451 NILS JO M.D. Jul 17, 2016 16:20
[2016-07-17] MEDS: LORAZEPAM 2 MG INJ IV PRN (18:10)
--- NOTE | 2016-07-17 18:17 | RADRPT ---
PROCEDURE: Upper GI series with small bowel follow-through. CLINICAL INDICATION: Abdominal pain. Status post jejunal bowel surgery. Partial, bowel obstructi on. TECHNIQUE: Upper GI series with small bowel follow-through was performed with 240 cc of gastrograp hin contrast. Multiple overhead digital images were obtained. COMPARISON: CT abdomen pelvis July 16, 2016 FINDINGS: There is an NG tube in the stomach. The stomach is noted to be unremarkable. No filling defects or ulcerations were seen in the stomach. Gastrographin flowed immediately passed the duodenum into the jejunum. Surgical clips are present in the right upper quadrant. The small bowel loops are normal in caliber. No filling defect or mucosal abnormality seen. Normal intestinal motility is present. The right colon was completely opacified at 2 hours. The terminal ileum is normal. The right colon is normal. IMPRESSION: No findings of bowel obstruction or perforation. Normal exam. RPTAT: EE .Janie Levin MD, MD Date Time Electronically viewed and signed by .Janie Levin MD, on 07/17/2016 18:17 .F/
[2016-07-17 21:12] VITALS: BP 125/83; RESP 20
[2016-07-18] MEDS: HYDROmorphONE 1 MG/ML SYG IV PRN ×5 (03:57→21:25)
[2016-07-18] MEDS: CHLORDIAZEPOXIDE 25 MG CAP NGT SCH ×3 (08:32→21:25)
[2016-07-18] MEDS: FAMOTIDINE 20 MG INJ IV SCH ×2 (08:32→21:25)
[2016-07-18] MEDS: MULTIVITAMINS 10 ML, THIAMINE 100 MG, FOLIC ACID 1 MG in SOD CHLORIDE 0.9% 1,000 ML IVPB SCH (08:45)
--- NOTE | 2016-07-18 09:11 | CONS ---
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 Carlson Consultation Date/Type/Reason Admit Date/Time Jul 16, 2016 at 13:15 Initial Consult Date 07/17/16 Type of Consultation: Gastroenterology 24 HR Interval Summary Free Text/Dictation Small bowel follow-through negative for obstruction We will start trial of clears Reports left-sided abdominal pain Exam/Review of Systems Vital Signs Vitals Vital Signs Date Time Temp Pulse Resp B/P Pulse Ox O2 Delivery O2 Flow Rate FiO2 07/17/16 21:12 98.6 87 20 125/83 98 07/16/16 13:30 Room Air Intake and Output 07/17/16 07/17/16 07/18/16 15:00 23:00 07:00 Intake Total 800 ml 700 ml 450 ml Output Total 700 ml Balance 800 ml 0 ml 450 ml Exam Constitutional: alert, oriented, well developed Psych: nl mood/affect, no complaints Head: atraumatic, normocephalic Eyes: EOMI, PERRL, nl conjunctiva, nl lids, nl sclera ENMT: nl external ears & nose, nl lips & teeth, nl nasal mucosa & septum Neck: non-tender, supple Respiratory: clear to auscultation, normal air movement Cardiovascular: nl pulses, regular rate and rhythm Gastrointestinal: bowel sounds, nl liver, spleen, soft, surgical scars, tender (LLQ and epigastric area), No ascites, No distended, No firm, No hepatomegaly, No mass, No rebound or guarding Musculoskeletal: nl extremities to inspection, nl gait and stance Extremities: normal pulses 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, nl mental status, nl speech, nl strength Skin: nl turgor, No rash or lesions Lymph: nl lymph nodes Results Result Diagram: 07/17/16 0451 07/17/16 0451 Medications Medications Current Medications Potassium Chloride/Dextrose/ Sod Cl (D5-1/2ns + KCl 10 Meq) 1,000 ml @ 75 mls/ hr [id number] IV Last administered on 07/17/16 23:03; Admin Dose 75 MLS/HR; Start 07/16/16 at 14:00 Ondansetron HCl (Zofran Inj) 4 mg Q6H PRN IV NAUSEA AND/OR VOMITING Last administered on 07/17/16 13:43; Admin Dose 4 MG; Start 07/16/16 at 14:00 Famotidine (Pepcid Iv) 20 mg Q12 IV Last administered on 07/18/16 08:32; Admin Dose 20 MG; Start 07/16/16 at 21:00 Lorazepam (Ativan) 1 mg Q2H PRN IV Anxiety Last administered on 07/17/16 18:10 ; Admin Dose 1 MG; Start 07/16/16 at 14:00 Chlordiazepoxide (Librium) 50 mg TID NGT Last administered on 07/18/16 08:32; Admin Dose 50 MG; Start 07/16/16 at 21:00 Hydromorphone HCl (Dilaudid) 1 mg Q4H PRN IV PAIN Last administered on 08:32; Admin Dose 1 MG; Start 07/16/16 at 19:00 Phenol 1 lozenge 1 lozenge Q1H PRN MT SORE THROAT Last administered on 07:00; Admin Dose 1 LOZENGE; Start 07/17/16 at 06:15 Multivitamins/ Thiamine HCl/ Folic Acid/Sodium Chloride (Mvi-12 Adult/ Vitamin B1/Folic Acid/NS) 1,011.2 ml @ 125 mls/ hr DAILY@09 IVPB Last administered on 07/18/16 08:45; Admin Dose 125 MLS/HR; Start 07/18/16 at 09:00 BJ ENRIQUE Jul 18, 2016 09:11
[2016-07-18 09:57] LABS: BARBITURATES Positive (NEGATIVE)
[2016-07-18 10:01] LABS: CANNABINOIDS Positive (NEGATIVE); COCAINE Negative (NEGATIVE); OPIATES Positive (NEGATIVE)
[2016-07-18 10:08] LABS: BENZODIAZEPINES Positive (NEGATIVE)
[2016-07-18] MEDS: D5W-0.45 NACL + KCL 10 MEQ 1,000 ML IV SCH (12:16)
[2016-07-18 20:00] VITALS: BP 150/80; PULSE 72; RESP 18
--- NOTE | 2016-07-18 21:55 | PN ---
Date/Time of Note Date/Time of Note DATE: 07/18/16 TIME: 21:53 Assessment/Plan VTE Prophylaxis VTE Prophylaxis Intervention: SCD's Lines/Catheters IV Catheter Type (from Nrsg): Peripheral IV Assessment/Plan Assessment/Plan 1. Acute abdominal pain. CT showing possible low-grade partial small-bowel obstruction. The patient has an NG tube in place. The patient will be kept n.p.o. The patient will be maintained on NG tube decompression. The patient will be provided with adequate pain control. General surgery will be consulting on this patient. 2. ETOH abuse. The patient will be maintained on p.r.n. Ativan for any anxiety. The patient will be started on a tapering dose of Librium. Social work consult will be ordered. Plan: NG tube discontinued banana bag daily UGI with SBF- normal Tolerating clear liquids, GI and General surgery following ativan prn Subjective 24 Hr Interval Summary Free Text/Dictation c/o abdominal pain, Gettign banana bag Exam/Review of Systems Vital Signs Vitals Vital Signs Date Time Temp Pulse Resp B/P Pulse Ox O2 Delivery O2 Flow Rate FiO2 07/17/16 21:12 98.6 87 20 125/83 98 07/16/16 13:30 Room Air Intake and Output 07/17/16 07/17/16 07/18/16 15:00 23:00 07:00 Intake Total 800 ml 700 ml 450 ml Output Total 700 ml Balance 800 ml 0 ml 450 ml Results Result Diagram: 07/17/16 0451 07/17/16 0451 Results 24 hrs Laboratory Tests Test 07/18/16 08:40 Urine Amphetamines Screen Negative Urine Barbiturates Positive Urine Benzodiazepines Screen Positive Urine Cannabinoids Positive Urine Cocaine Screen Negative Urine Opiates Screen Positive Medications Medications Current Medications Potassium Chloride/Dextrose/ Sod Cl (D5-1/2ns + KCl 10 Meq) 1,000 ml @ 75 mls/ hr [id number] IV Last administered on 07/17/16 23:03; Admin Dose 75 MLS/HR; Start 07/16/16 at 14:00 Ondansetron HCl (Zofran Inj) 4 mg Q6H PRN IV NAUSEA AND/OR VOMITING Last administered on 07/17/16 13:43; Admin Dose 4 MG; Start 07/16/16 at 14:00 Famotidine (Pepcid Iv) 20 mg Q12 IV Last administered on 07/18/16 21:25; Admin Dose 20 MG; Start 07/16/16 at 21:00 Lorazepam (Ativan) 1 mg Q2H PRN IV Anxiety Last administered on 07/17/16 18:10 ; Admin Dose 1 MG; Start 07/16/16 at 14:00 Chlordiazepoxide (Librium) 50 mg TID NGT Last administered on 07/18/16 21:25; Admin Dose 50 MG; Start 07/16/16 at 21:00 Hydromorphone HCl (Dilaudid) 1 mg Q4H PRN IV PAIN Last administered on 21:25; Admin Dose 1 MG; Start 07/16/16 at 19:00 Phenol 1 lozenge 1 lozenge Q1H PRN MT SORE THROAT Last administered on 07:00; Admin Dose 1 LOZENGE; Start 07/17/16 at 06:15 Multivitamins/ Thiamine HCl/ Folic Acid/Sodium Chloride (Mvi-12 Adult/ Vitamin B1/Folic Acid/NS) 1,011.2 ml @ 125 mls/ hr DAILY@09 IVPB Last administered on 07/18/16 08:45; Admin Dose 125 MLS/HR; Start 07/18/16 at 09:00 JAMES KELLEY MD Jul 18, 2016 21:55
[2016-07-19] MEDS: LORAZEPAM 2 MG INJ IV PRN ×3 (00:48→20:12)
[2016-07-19] MEDS: D5W-0.45 NACL + KCL 10 MEQ 1,000 ML IV SCH (00:53)
[2016-07-19] MEDS: HYDROmorphONE 1 MG/ML SYG IV PRN ×6 (01:35→22:10)
[2016-07-19 06:01] LABS: ADD SCAN DIFF NO
[2016-07-19 06:15] LABS: ABNORMAL IP MESSAGE 1; BASOPHIL # 0.1 10^3/ul (0.0-0.1); BASOPHILS % 0.4 % (0.0-2.0); EOSINOPHILS # 0.3 10^3/ul (0.0-0.5); EOSINOPHILS % 2.1 % (0.0-7.0); HEMOGLOBIN 14.4 g/dl (14.0-18.0); LYMPHOCYTES % 24.7 % (15.0-51.0); MEAN CORPUSCULAR HEMOGLOBIN 31.8 pg (29.0-33.0); MEAN CORPUSCULAR HGB CONC 33.5 g/dl (32.0-37.0); MEAN CORPUSCULAR VOLUME 94.9 fl (82.0-101.0); MEAN PLATELET VOLUME 9.9 fl (7.4-10.4); MONOCYTE # 1.8 10^3/ul (0.3-0.9); MONOCYTES % 14.5 % (0.0-11.0); NEUTROPHIL # 7.1 10^3/ul (1.6-7.5); NEUTROPHILS % 58.1 % (39.0-77.0); PLATELET COUNT 276 10^3/UL (140-415); RED BLOOD COUNT 4.53 10^6/ul (4.70-6.10); WHITE BLOOD COUNT 12.2 10^3/ul (4.8-10.8)
[2016-07-19 06:16] LABS: INR 0.96; PROTIME 12.8 Sec (12.2-14.2)
[2016-07-19 06:17] LABS: PARTIAL THROMBOPLASTIN TIME 29.1 Sec (25.0-35.0)
[2016-07-19 06:23] LABS: POTASSIUM 3.9 mmol/L (3.5-5.1)
[2016-07-19 06:26] LABS: CREATININE 0.69 mg/dl (0.61-1.24)
[2016-07-19 06:27] LABS: CALCIUM 8.6 mg/dl (8.4-10.2)
[2016-07-19 07:38] VITALS: BP 139/78; RESP 20
[2016-07-19] MEDS: FAMOTIDINE 20 MG INJ IV SCH ×2 (08:54→20:36)
[2016-07-19] MEDS: CHLORDIAZEPOXIDE 25 MG CAP NGT SCH ×3 (08:55→20:36)
[2016-07-19] MEDS: MULTIVITAMINS 10 ML, THIAMINE 100 MG, FOLIC ACID 1 MG in SOD CHLORIDE 0.9% 1,000 ML IVPB SCH (08:55)
--- NOTE | 2016-07-19 16:29 | PN ---
Date/Time of Note Date/Time of Note DATE: 07/19/16 TIME: 16:26 Assessment/Plan VTE Prophylaxis VTE Prophylaxis Intervention: SCD's Lines/Catheters IV Catheter Type (from Nrs): Peripheral IV Urinary Cath still in place: No Assessment/Plan Assessment/Plan 1. Acute abdominal pain. CT showing possible low-grade partial small-bowel obstruction. The patient has an NG tube in place. The patient will be kept n.p.o. The patient will be maintained on NG tube decompression. The patient will be provided with adequate pain control. General surgery will be consulting on this patient. 2. ETOH abuse. ativan prn Plan: NG tube discontinued- tolerating clear liquids today- advance diet as per GI banana bag daily UGI with SBF- normal ativan prn Subjective 24 Hr Interval Summary Free Text/Dictation tolerating clear liquids so far, Hb stable, Exam/Review of Systems Vital Signs Vitals Vital Signs Date Time Temp Pulse Resp B/P Pulse Ox O2 Delivery O2 Flow Rate FiO2 07/19/16 07:38 98.4 65 20 139/78 98 07/18/16 20:00 Room Air Intake and Output 07/18/16 07/18/16 07/19/16 15:00 23:00 07:00 Intake Total 2391.2 ml Output Total 120 ml 450 ml Balance -120 ml 1941.2 ml Exam GENERAL: This is a well-built, well-nourished male lying in bed, in mild distress secondary to underlying abdominal pain. HEENT: Head normocephalic and atraumatic. Eyes: Anicteric sclerae. Conjunctivae clear. ENT: Nasal septum is midline. NG tube in the naris. Oral mucosa is dry. NECK: Supple. No JVD noticed. RESPIRATORY: Bilaterally clear to auscultation. No adventitious breath sounds. No use of accessory muscles of respiration. CARDIAC: Regular rate and rhythm. No murmurs. ABDOMEN: Multiple surgical scars on the abdomen. Diffuse abdominal tenderness. EXTREMITIES: No cyanosis, no clubbing, no edema. Peripheral pulses palpable. NEUROLOGIC: The patient is awake, alert and oriented. Cranial nerves are grossly intact. Results Result Diagram: 07/19/16 0459 07/19/16 0459 Results 24 hrs Laboratory Tests Test 07/19/16 04:59 Activated Partial Thromboplast Time 29.1 Anion Gap 15 Basophils # 0.1 Basophils % 0.4 Blood Urea Nitrogen 5 L Calcium Level 8.6 Carbon Dioxide Level 29 Chloride Level 103 Creatinine 0.69 Eosinophils # 0.3 Eosinophils % 2.1 Glucose Level 83 Hematocrit 43.0 Hemoglobin 14.4 INR International Normalized Ratio 0.96 Lymphocytes # 3.0 H Lymphocytes % 24.7 Mean Corpuscular Hemoglobin 31.8 Mean Corpuscular Hemoglobin Concent 33.5 Mean Corpuscular Volume 94.9 Mean Platelet Volume 9.9 Monocytes # 1.8 H Monocytes % 14.5 H Neutrophils # 7.1 Neutrophils % 58.1 Nucleated Red Blood Cells # 0.0 Nucleated Red Blood Cells % 0.0 Platelet Count 276 Potassium Level 3.9 Prothrombin Time 12.8 Prothrombin Time Ratio 1.0 Red Blood Count 4.53 L Red Cell Distribution Width 15.0 H Sodium Level 143 White Blood Count 12.2 #H Medications Medications Current Medications Ondansetron HCl (Zofran Inj) 4 mg Q6H PRN IV NAUSEA AND/OR VOMITING Last administered on 07/17/16 13:43; Admin Dose 4 MG; Start 07/16/16 at 14:00 Famotidine (Pepcid Iv) 20 mg Q12 IV Last administered on 07/19/16 08:54; Admin Dose 20 MG; Start 07/16/16 at 21:00 Lorazepam (Ativan) 1 mg Q2H PRN IV Anxiety Last administered on 07/19/16 11:25 ; Admin Dose 1 MG; Start 07/16/16 at 14:00 Chlordiazepoxide (Librium) 50 mg TID NGT Last administered on 07/19/16 13:57; Admin Dose 50 MG; Start 07/16/16 at 21:00 Hydromorphone HCl (Dilaudid) 1 mg Q4H PRN IV PAIN Last administered on 13:57; Admin Dose 1 MG; Start 07/16/16 at 19:00 Phenol 1 lozenge 1 lozenge Q1H PRN MT SORE THROAT Last administered on 07:00; Admin Dose 1 LOZENGE; Start 07/17/16 at 06:15 Multivitamins/ Thiamine HCl/ Folic Acid/Sodium Chloride (Mvi-12 Adult/ Vitamin B1/Folic Acid/NS) 1,011.2 ml @ 125 mls/ hr DAILY@09 IVPB Last administered on 07/19/16t 08:55; Admin Dose 125 MLS/HR; Start 07/18/16 at 09:00 JAMES KELLEY MD Jul 19, 2016 16:29
--- NOTE | 2016-07-19 17:27 | PN ---
Date/Time of Note Date/Time of Note DATE: 07/19/16 TIME: 17:08 Assessment/Plan Lines/Catheters IV Catheter Type (from Nrs): Peripheral IV Duncan in Place (from Nrs): No Assessment/Plan Assessment/Plan [facility] Progress Note Date of Service: 07/19/16 Today's Impression & Plan: Overall stable. No sign of bowel obstruction with SBFT. No indication for acute surgical intervention. ? gastroenteritis or viral flu as the source. With above assessment, I've recommend the followin. Cont medical management 2. Will follow from periphery Thank you very much for having me involved in the care of this very pleasant young gentleman and his wonderful family. I will be available to answer any questions at area [phone]. TOTAL VISIT TIME: 10 minutes of which more than half was spent in coordination of care between multiple physicians and providers. Updated Clinical Summary: The patient is a very pleasant 28-year-old young man, very well known to me and my service over the course of the last 2.5 years for treatment of chronic pancreatitis that involved several operative interventions including a distal pancreatectomy and splenectomy followed by a distal pancreatic jejunostomy. Initially the patient was suffering from chronic pancreatitis due to alcoholism that he started when he was a young 14-year-old. 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 After this, he had a 6 year period where he was in and out of the hospital every few weeks and multiple diagnostic tests and interventions were done until we had a chance to see him, and over the course of the next year and a half to 2 years, managed to get his chronic pancreatitis issues settled with above operative interventions. In 2016 and 2017, patient started having more visits through the ED and being hospitalized with reported resumption of ETOH. Comorbidities: 1. History of chronic pancreatitis, due to prior alcoholism, status post major pancreatitis at age 20 and then 6 years of chronic pain, multiple interventions , until he underwent the above named operations. 2. History of pain medication addiction and pain intolerance. 3. History of malnutrition, although the patient has been putting on more weight in the last number of months and does not seem to be suffering from this any longer. 4. History of anxiety. 5. 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 6. History of depression 7. Cholecystectomy, splenectomy and distal pancreatectomy. 8. Distal pancreatic jejunostomy. Subjective: No major events or complaints; no abd pain and under control with medications; no n/v/d; no sob or cp; + flatus; + BM and diarrhea; + activity Objective: Vitals: See below Exam: GENERAL: On exam, the patient was sitting in a chair and appeared to be comfortable and in no acute distress. ABDOMEN: Soft, nontender and nondistended. There are no peritoneal signs or guarding. SKIN: Skin appears to be pink and feels warm to touch. NEUROLOGIC: Patient is awake, alert, and follows commands appropriately. Exam/Review of Systems Vital Signs Vitals Vital Signs Date Time Temp Pulse Resp B/P Pulse Ox O2 Delivery O2 Flow Rate FiO2 07/19/16 07:38 98.4 65 20 139/78 98 07/18/16 20:00 Room Air Intake and Output 07/18/16 07/18/16 07/19/16 15:00 23:00 07:00 Intake Total 2391.2 ml Output Total 120 ml 450 ml Balance -120 ml 1941.2 ml Results Result Diagram: 07/19/16 0459 07/19/16 0459 NILS JO M.D. Jul 19, 2016 17:27
[2016-07-19 20:03] VITALS: BP 137/92; RESP 18
--- NOTE | 2016-07-19 20:48 | PN ---
Date/Time of Note Date/Time of Note DATE: 07/19/16 TIME: 20:48 Assessment/Plan VTE Prophylaxis VTE Prophylaxis Intervention: SCD's Lines/Catheters IV [facility] Peripheral IV Urinary Cath still in place: No Assessment/Plan Chief Complaint/Hosp Course 30-year-old male with a complex past medical history with severe necrotizing pancreatitis August 2012, the patient was hospitalized for a prolonged period of time and underwent multiple lifesaving surgeries by Dr. JO. The patient has done relatively well until07/16/2016 when he developed significant left upper quadrant abdominal pain and presented in the emergency room. Evaluation emergency room could raise the possibility of bowel obstruction patient has received nasogastric decompression and has been hospitalized. Surgical consultation by has been performed and small bowel follow-through has been ordered to rule out small bowel obstruction which appears to be considered not likely. We are requested to assist and possible consider endoscopic evaluation of the epigastric intestinal tract pending results of imaging already requested. The patient at the present time is comfortable except for the discomfort associated with nasogastric tube placement. He does complain of abdominal pain which she describes as continuous, dull, located in the right upper quadrant and radiating towards the epigastrium. There is no associated nausea, vomiting. There is no evidence of overt gastrointestinal bleeding such as hematemesis, melena or hematochezia. Laboratories showed a normal amylase and lipase and normal liver function test. White blood cell count is slightly elevated. Imaging consisting of CT of the abdomen and pelvis shows: 1. When compared to the previous CT of 07/30/2015, anastomotic allison are again seen within jejunum and there is somewhat increased dilatation of jejunum at the site up to 4.3 cm in cross diameter suspicious for a low grade partial obstruction. Stool is again seen to the colon and there is no evidence of bowel inflammation. A normal vermiform appendix is evident. 2. Status post splenectomy and cholecystectomy, unchanged. No bile duct dilatation is evident and no pancreatic mass or inflammation is noted. 3. Mild persistent hepatomegaly with heterogeneous fatty infiltration. 4. A 9 mm dense nodule again extends off the superior pole left kidney which may represent a hemorrhagic or complex cyst. There is no evidence of urinary outflow obstruction or ureterolithiasis. 4. Schmorl's node again seen at the superior endplate of T11. The patient is awaiting small bowel follow-through today, we will follow closely , we agree with discontinuation of nasogastric tube with no evidence of bowel obstruction is present. Further recommendation will depend patient's clinical course as well as results of imaging Problems: Exam/Review of Systems Vital Signs Vitals Vital Signs Date Time Temp Pulse Resp B/P Pulse Ox O2 Delivery O2 Flow Rate FiO2 07/19/16 20:03 97.9 75 18 137/92 99 07/18/16 20:00 Room Air Intake and Output 07/18/16 07/18/16 07/19/16 15:00 23:00 07:00 Intake Total 2391.2 ml Output Total 120 ml 450 ml Balance -120 ml 1941.2 ml Results Result Diagram: 07/19/16 0459 07/19/16 0459 Results 24 hrs Laboratory Tests Test 07/19/16 04:59 Activated Partial Thromboplast Time 29.1 Anion Gap 15 Basophils # 0.1 Basophils % 0.4 Blood Urea Nitrogen 5 L Calcium Level 8.6 Carbon Dioxide Level 29 Chloride Level 103 Creatinine 0.69 Eosinophils # 0.3 Eosinophils % 2.1 Glucose Level 83 Hematocrit 43.0 Hemoglobin 14.4 INR International Normalized Ratio 0.96 Lymphocytes # 3.0 H Lymphocytes % 24.7 Mean Corpuscular Hemoglobin 31.8 Mean Corpuscular Hemoglobin Concent 33.5 Mean Corpuscular Volume 94.9 Mean Platelet Volume 9.9 Monocytes # 1.8 H Monocytes % 14.5 H Neutrophils # 7.1 Neutrophils % 58.1 Nucleated Red Blood Cells # 0.0 Nucleated Red Blood Cells % 0.0 Platelet Count 276 Potassium Level 3.9 Prothrombin Time 12.8 Prothrombin Time Ratio 1.0 Red Blood Count 4.53 L Red Cell Distribution Width 15.0 H Sodium Level 143 White Blood Count 12.2 #H Medications Medications Current Medications Ondansetron HCl (Zofran Inj) 4 mg Q6H PRN IV NAUSEA AND/OR VOMITING Last administered on 07/17/16 13:43; Admin Dose 4 MG; Start 07/16/16 at 14:00 Famotidine (Pepcid Iv) 20 mg Q12 IV Last administered on 07/19/16 20:36; Admin Dose 20 MG; Start 07/16/16 at 21:00 Lorazepam (Ativan) 1 mg Q2H PRN IV Anxiety Last administered on 07/19/16 20:12 ; Admin Dose 1 MG; Start 07/16/16 at 14:00 Chlordiazepoxide (Librium) 50 mg TID NGT Last administered on 07/19/16 20:36; Admin Dose 50 MG; Start 07/16/16 at 21:00 Hydromorphone HCl (Dilaudid) 1 mg Q4H PRN IV PAIN Last administered on 18:09; Admin Dose 1 MG; Start 07/16/16 at 19:00 Phenol 1 lozenge 1 lozenge Q1H PRN MT SORE THROAT Last administered on 07:00; Admin Dose 1 LOZENGE; Start 07/17/16 at 06:15 Multivitamins/ Thiamine HCl/ Folic Acid/Sodium Chloride (Mvi-12 Adult/ Vitamin B1/Folic Acid/NS) 1,011.2 ml @ 125 mls/ hr DAILY@09 IVPB Last administered on 07/19/16 08:55; Admin Dose 125 MLS/HR; Start 07/18/16 at 09:00 CALVIN JOHNSON MD Jul 19, 2016 20:48
[2016-07-19] MEDS ORDERED: HYOSCYAMINE 0.125 MG SUBL TAB SL PRN (21:00)
[2016-07-20] MEDS: HYDROmorphONE 1 MG/ML SYG IV PRN ×6 (02:25→23:01)
[2016-07-20 07:32] VITALS: BP 146/89; RESP 20
--- NOTE | 2016-07-20 08:35 | CONS ---
Date/Time of Note Date/Time of Note DATE: 07/20/16 TIME: 08:32 Assessment/Plan Assessment/Plan Additional Assessment/Plan Assessment: * Left upper quadrant/epigastric abdominal pain * Rule out small bowel obstruction, SBFT: No findings of bowel obstruction or perforation. Normal exam. 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 Carlson Consultation Date/Type/Reason Admit Date/Time Jul 16, 2016 at 13:15 Initial Consult Date 07/17/16 Type of Consultation: Gastroenterology 24 HR Interval Summary Free Text/Dictation Reports less abdominal pain Advance diet as tolerated Exam/Review of Systems Vital Signs Vitals Vital Signs Date Time Temp Pulse Resp B/P Pulse Ox O2 Delivery O2 Flow Rate FiO2 07/20/16 07:32 98.1 59 20 146/89 99 07/18/16 20:00 Room Air Intake and Output 07/19/16 07/19/16 07/20/16 15:00 23:00 07:00 Intake Total 2050 ml 261.2 ml Output Total 900 ml Balance 1150 ml 261.2 ml Exam Constitutional: alert, oriented, well developed Psych: nl mood/affect, no complaints Head: atraumatic, normocephalic Eyes: EOMI, PERRL, nl conjunctiva, nl lids, nl sclera ENMT: nl external ears & nose, nl lips & teeth, nl nasal mucosa & septum Neck: non-tender, supple Respiratory: clear to auscultation, normal air movement Cardiovascular: nl pulses, regular rate and rhythm Gastrointestinal: bowel sounds, nl liver, spleen, soft, surgical scars, slight tenderness (LLQ and epigastric area), No ascites, No distended, No firm, No hepatomegaly, No mass, No rebound or guarding Musculoskeletal: nl extremities to inspection, nl gait and stance Extremities: normal pulses Neurological: 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, nl mental status, nl speech, nl strength Skin: nl turgor, No rash or lesions Lymph: nl lymph nodes Results Result Diagram: 07/19/16 0459 07/19/16 0459 Medications Medications Current Medications Ondansetron HCl (Zofran Inj) 4 mg Q6H PRN IV NAUSEA AND/OR VOMITING Last administered on 07/17/16 13:43; Admin Dose 4 MG; Start 07/16/16 at 14:00 Famotidine (Pepcid Iv) 20 mg Q12 IV Last administered on 07/19/16 20:36; Admin Dose 20 MG; Start 07/16/16 at 21:00 Lorazepam (Ativan) 1 mg Q2H PRN IV Anxiety Last administered on 07/19/16 20:12 ; Admin Dose 1 MG; Start 07/16/16 at 14:00 Chlordiazepoxide (Librium) 50 mg TID NGT Last administered on 07/19/16 20:36; Admin Dose 50 MG; Start 07/16/16 at 21:00 Hydromorphone HCl (Dilaudid) 1 mg Q4H PRN IV PAIN Last administered on 06:23; Admin Dose 1 MG; Start 07/16/16 at 19:00 Phenol 1 lozenge 1 lozenge Q1H PRN MT SORE THROAT Last administered on 07:00; Admin Dose 1 LOZENGE; Start 07/17/16 at 06:15 Multivitamins/ Thiamine HCl/ Folic Acid/Sodium Chloride (Mvi-12 Adult/ Vitamin B1/Folic Acid/NS) 1,011.2 ml @ 125 mls/ hr DAILY@09 IVPB Last administered on 07/19/16 08:55; Admin Dose 125 MLS/HR; Start 07/18/16 at 09:00 Hyoscyamine (Levsin (Sl)) 0.125 mg Q4H PRN SL pain; Start 07/19/16 at 21:00 BJ ENRIQUE Jul 20, 2016 08:35
[2016-07-20] MEDS: MULTIVITAMINS 10 ML, THIAMINE 100 MG, FOLIC ACID 1 MG in SOD CHLORIDE 0.9% 1,000 ML IVPB SCH (08:46)
[2016-07-20] MEDS: FAMOTIDINE 20 MG INJ IV SCH ×2 (08:46→20:31)
[2016-07-20] MEDS: CHLORDIAZEPOXIDE 25 MG CAP NGT SCH ×3 (08:48→20:31)
--- NOTE | 2016-07-20 09:56 | PN ---
Date/Time of Note Date/Time of Note DATE: 07/20/16 TIME: 09:54 Assessment/Plan VTE Prophylaxis VTE Prophylaxis Intervention: SCD's Lines/Catheters IV Catheter Type (from Nrs): Peripheral IV Urinary Cath still in place: No Assessment/Plan Assessment/Plan 1. Acute abdominal pain. CT showing possible low-grade partial small-bowel obstruction. The patient has an NG tube in place. The patient will be kept n.p.o. The patient will be maintained on NG tube decompression. The patient will be provided with adequate pain control. General surgery will be consulting on this patient. 2. ETOH abuse. ativan prn Plan: NG tube discontinued- tolerating clear liquids today- will advance diet to soft diet, if tolerated then we will plan for d/c after GI clearance banana bag daily UGI with SBF- normal ativan prn Subjective 24 Hr Interval Summary Free Text/Dictation pt still c/o abdominal pain, nausea, BP stable , still on clear liquid diet Exam/Review of Systems Vital Signs Vitals Vital Signs Date Time Temp Pulse Resp B/P Pulse Ox O2 Delivery O2 Flow Rate FiO2 07/20/16 07:32 98.1 59 20 146/89 99 07/18/16 20:00 Room Air Intake and Output 07/19/16 07/19/16 07/20/16 15:00 23:00 07:00 Intake Total 2050 ml 261.2 ml Output Total 900 ml Balance 1150 ml 261.2 ml Exam GENERAL: This is a well-built, well-nourished male lying in bed, in mild distress secondary to underlying abdominal pain. HEENT: Head normocephalic and atraumatic. Eyes: Anicteric sclerae. Conjunctivae clear. ENT: Nasal septum is midline. NG tube in the naris. Oral mucosa is dry. NECK: Supple. No JVD noticed. RESPIRATORY: Bilaterally clear to auscultation. No adventitious breath sounds. No use of accessory muscles of respiration. CARDIAC: Regular rate and rhythm. No murmurs. ABDOMEN: Multiple surgical scars on the abdomen. Diffuse abdominal tenderness. EXTREMITIES: No cyanosis, no clubbing, no edema. Peripheral pulses palpable. NEUROLOGIC: The patient is awake, alert and oriented. Cranial nerves are grossly intact. Results Result Diagram: 07/19/16 0459 07/19/16 0459 Medications Medications Current Medications Ondansetron HCl (Zofran Inj) 4 mg Q6H PRN IV NAUSEA AND/OR VOMITING Last administered on 07/17/16 13:43; Admin Dose 4 MG; Start 07/16/16 at 14:00 Famotidine (Pepcid Iv) 20 mg Q12 IV Last administered on 07/20/16 08:46; Admin Dose 20 MG; Start 07/16/16 at 21:00 Lorazepam (Ativan) 1 mg Q2H PRN IV Anxiety Last administered on 07/19/16 20:12 ; Admin Dose 1 MG; Start 07/16/16 at 14:00 Chlordiazepoxide (Librium) 50 mg TID NGT Last administered on 07/20/16 08:48; Admin Dose 50 MG; Start 07/16/16 at 21:00 Hydromorphone HCl (Dilaudid) 1 mg Q4H PRN IV PAIN Last administered on 06:23; Admin Dose 1 MG; Start 07/16/16 at 19:00 Phenol 1 lozenge 1 lozenge Q1H PRN MT SORE THROAT Last administered on 07:00; Admin Dose 1 LOZENGE; Start 07/17/16 at 06:15 Multivitamins/ Thiamine HCl/ Folic Acid/Sodium Chloride (Mvi-12 Adult/ Vitamin B1/Folic Acid/NS) 1,011.2 ml @ 125 mls/ hr DAILY@09 IVPB Last administered on 07/20/16 08:46; Admin Dose 125 MLS/HR; Start 07/18/16 at 09:00 Hyoscyamine (Levsin (Sl)) 0.125 mg Q4H PRN SL pain; Start 07/19/16 at 21:00 JAMES KELLEY MD Jul 20, 2016 09:55
[2016-07-20 20:15] VITALS: BP_SYST 177; BP_SYST 180; BP_DIAS 104; BP_DIAS 117; PULSE 53; PULSE 56; RESP 18
[2016-07-20] MEDS: LORAZEPAM 2 MG INJ IV PRN (20:27)
[2016-07-20] MEDS: hydrALAzine 20 MG INJ IV PRN (20:38)
[2016-07-20 21:40] VITALS: BP 142/91; PULSE 72
[2016-07-21] MEDS: HYDROmorphONE 1 MG/ML SYG IV PRN ×5 (02:50→19:04)
[2016-07-21 07:34] VITALS: BP 181/95; RESP 20
[2016-07-21] MEDS: hydrALAzine 20 MG INJ IV PRN (07:42)
[2016-07-21] MEDS: LORAZEPAM 2 MG INJ IV PRN ×2 (07:47→20:23)
--- NOTE | 2016-07-21 08:10 | CONS ---
Date/Time of Note Date/Time of Note DATE: 07/21/16 TIME: 08:09 Assessment/Plan Assessment/Plan Additional Assessment/Plan Assessment: * Left upper quadrant/epigastric abdominal pain * Rule out small bowel obstruction, SBFT: No findings of bowel obstruction or perforation. Normal exam. 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 Carlson Consultation Date/Type/Reason Admit Date/Time Jul 16, 2016 at 13:15 Initial Consult Date 07/17/16 Type of Consultation: Gastroenterology 24 HR Interval Summary Free Text/Dictation Tolerating diet We will advance to regular Reports slight epigastric pain, likely secondary to chronic pancreatitis Reports some acid reflux, but well controlled with Pepcid Exam/Review of Systems Vital Signs Vitals Vital Signs Date Time Temp Pulse Resp B/P Pulse Ox O2 Delivery O2 Flow Rate FiO2 07/21/16 07:34 98.2 66 20 181/95 96 07/20/16 20:15 Room Air Intake and Output 07/20/16 07/20/16 07/21/16 15:00 23:00 07:00 Intake Total 1971.2 ml 1020 ml Output Total 650 ml 1900 ml Balance 1321.2 ml -880 ml Exam Constitutional: alert, oriented, well developed Psych: nl mood/affect, no complaints Head: atraumatic, normocephalic Eyes: EOMI, PERRL, nl conjunctiva, nl lids, nl sclera ENMT: nl external ears & nose, nl lips & teeth, nl nasal mucosa & septum Neck: non-tender, supple Respiratory: clear to auscultation, normal air movement Cardiovascular: nl pulses, regular rate and rhythm Gastrointestinal: bowel sounds, nl liver, spleen, soft, surgical scars, slight tenderness (LLQ and epigastric area), No ascites, No distended, No firm, No hepatomegaly, No mass, No rebound or guarding Musculoskeletal: nl extremities to inspection, nl gait and stance Extremities: normal pulses Neurological: INSPECTOR TOOL II-XII intact, nl mental status, nl speech, nl strength Skin: nl turgor, No rash or lesions Lymph: nl lymph nodes Results Result Diagram: 07/19/169 07/19/169 Medications Medications Current Medications Ondansetron HCl (Zofran Inj) 4 mg Q6H PRN IV NAUSEA AND/OR VOMITING Last administered on 07/17/16 13:43; Admin Dose 4 MG; Start 07/16/16 at 14:00 Famotidine (Pepcid Iv) 20 mg Q12 IV Last administered on 07/20/16 20:31; Admin Dose 20 MG; Start 07/16/16 at 21:00 Lorazepam (Ativan) 1 mg Q2H PRN IV Anxiety Last administered on 07/21/16 07:47 ; Admin Dose 1 MG; Start 07/16/16 at 14:00 Chlordiazepoxide (Librium) 50 mg TID NGT Last administered on 07/20/16 20:31; Admin Dose 50 MG; Start 07/16/16 at 21:00 Hydromorphone HCl (Dilaudid) 1 mg Q4H PRN IV PAIN Last administered on 06:48; Admin Dose 1 MG; Start 07/16/16 at 19:00 Phenol 1 lozenge 1 lozenge Q1H PRN MT SORE THROAT Last administered on 07:00; Admin Dose 1 LOZENGE; Start 07/17/16 at 06:15 Multivitamins/ Thiamine HCl/ Folic Acid/Sodium Chloride (Mvi-12 Adult/ Vitamin B1/Folic Acid/NS) 1,011.2 ml @ 125 mls/ hr DAILY@09 IVPB Last administered on 07/20/16 08:46; Admin Dose 125 MLS/HR; Start 07/18/16 at 09:00 Hyoscyamine (Levsin (Sl)) 0.125 mg Q4H PRN SL pain; Start 07/19/16 at 21:00 Hydralazine HCl (Apresoline) 10 mg Q6H PRN IV SBP >160 Last administered on 07:42; Admin Dose 10 MG; Start 07/20/16 at 20:30 BJ ENRIQUE Jul 21, 2016 08:10
[2016-07-21] MEDS: FAMOTIDINE 20 MG INJ IV SCH ×2 (08:16→20:23)
[2016-07-21] MEDS: CHLORDIAZEPOXIDE 25 MG CAP NGT SCH ×3 (08:16→20:22)
[2016-07-21] MEDS: MULTIVITAMINS 10 ML, THIAMINE 100 MG, FOLIC ACID 1 MG in SOD CHLORIDE 0.9% 1,000 ML IVPB SCH (08:17)
--- NOTE | 2016-07-21 10:50 | PN ---
Date/Time of Note Date/Time of Note DATE: 07/21/16 TIME: 10:48 Assessment/Plan VTE Prophylaxis VTE Prophylaxis Intervention: SCD's Lines/Catheters IV Catheter Type (from [facility]): [place] Urinary Cath still in place: No Assessment/Plan Assessment/Plan 1. Acute abdominal pain. CT showing possible low-grade partial small-bowel obstruction. The patient has an NG tube in place. The patient will be kept n.p.o. The patient will be maintained on NG tube decompression. The patient will be provided with adequate pain control. General surgery will be consulting on this patient. 2. ETOH abuse. ativan prn Plan: NG tube discontinued- tolerating clear liquids today- will advance diet to soft diet, if tolerated then we will plan for d/c after GI clearance banana bag daily UGI with SBF- normal ativan prn Subjective 24 Hr Interval Summary Free Text/Dictation pt stable , tolerating po diet but still c/o nausea, vomiting Exam/Review of Systems Vital Signs Vitals Vital Signs Date Time Temp Pulse Resp B/P Pulse Ox O2 Delivery O2 Flow Rate FiO2 07/21/16 07:34 98.2 66 20 181/95 96 07/20/16 20:15 Room Air Intake and Output 07/20/16 07/20/16 07/21/16 15:00 23:00 07:00 Intake Total 1971.2 ml 1020 ml Output Total 650 ml 1900 ml Balance 1321.2 ml -880 ml Exam GENERAL: This is a well-built, well-nourished male lying in bed, in mild distress secondary to underlying abdominal pain. HEENT: Head normocephalic and atraumatic. Eyes: Anicteric sclerae. Conjunctivae clear. ENT: Nasal septum is midline. NG tube in the naris. Oral mucosa is dry. NECK: Supple. No JVD noticed. RESPIRATORY: Bilaterally clear to auscultation. No adventitious breath sounds. No use of accessory muscles of respiration. CARDIAC: Regular rate and rhythm. No murmurs. ABDOMEN: Multiple surgical scars on the abdomen. Diffuse abdominal tenderness. EXTREMITIES: No cyanosis, no clubbing, no edema. Peripheral pulses palpable. NEUROLOGIC: The patient is awake, alert and oriented. Cranial nerves are grossly intact. Results Result Diagram: 07/19/16 0459 07/19/16 0459 Medications Medications Current Medications Ondansetron HCl (Zofran Inj) 4 mg Q6H PRN IV NAUSEA AND/OR VOMITING Last administered on 07/17/16 13:43; Admin Dose 4 MG; Start 07/16/16 at 14:00 Famotidine (Pepcid Iv) 20 mg Q12 IV Last administered on 07/21/16 08:16; Admin Dose 20 MG; Start 07/16/16 at 21:00 Lorazepam (Ativan) 1 mg Q2H PRN IV Anxiety Last administered on 07/21/16 07:47 ; Admin Dose 1 MG; Start 07/16/16 at 14:00 Chlordiazepoxide (Librium) 50 mg TID NGT Last administered on 07/21/16 08:16; Admin Dose 50 MG; Start 07/16/16 at 21:00 Hydromorphone HCl (Dilaudid) 1 mg Q4H PRN IV PAIN Last administered on 06:48; Admin Dose 1 MG; Start 07/16/16 at 19:00 Phenol 1 lozenge 1 lozenge Q1H PRN MT SORE THROAT Last administered on 07:00; Admin Dose 1 LOZENGE; Start 07/17/16 at 06:15 Multivitamins/ Thiamine HCl/ Folic Acid/Sodium Chloride (Mvi-12 Adult/ Vitamin B1/Folic Acid/NS) 1,011.2 ml @ 125 mls/ hr DAILY@09 IVPB Last administered on 07/21/16 08:17; Admin Dose 125 MLS/HR; Start 07/18/16 at 09:00 Hyoscyamine (Levsin (Sl)) 0.125 mg Q4H PRN SL pain; Start 07/19/16 at 21:00 Hydralazine HCl (Apresoline) 10 mg Q6H PRN IV SBP >160 Last administered on 07:42; Admin Dose 10 MG; Start 07/20/16 at 20:30 JAMES KELLEY MD Jul 21, 2016 10:50
[2016-07-21] MEDS: ONDANSETRON 4 MG INJ IV PRN (11:13)
[2016-07-21 12:46] VITALS: BP 153/87; PULSE 71
[2016-07-21] MEDS ORDERED: ACETAMINOPHEN 325 MG TAB PO PRN (16:00)
[2016-07-21] MEDS ORDERED: HYDROCODONE/APAP (5/325) TAB PO PRN (16:00)
[2016-07-21 20:00] VITALS: BP 138/80; RESP 20
[2016-07-22] MEDS: HYDROmorphONE 1 MG/ML SYG IV PRN ×4 (00:08→12:30)
[2016-07-22 07:26] VITALS: BP 165/85; RESP 19
[2016-07-22] MEDS: CHLORDIAZEPOXIDE 25 MG CAP NGT SCH ×2 (08:35→12:29)
[2016-07-22] MEDS: FAMOTIDINE 20 MG INJ IV SCH (08:35)
[2016-07-22] MEDS: MULTIVITAMINS 10 ML, THIAMINE 100 MG, FOLIC ACID 1 MG in SOD CHLORIDE 0.9% 1,000 ML IVPB SCH (08:35)
--- NOTE | 2016-07-22 10:03 | CONS ---
Date/Time of Note Date/Time of Note DATE: 07/22/16 TIME: 10:01 Assessment/Plan Assessment/Plan Additional Assessment/Plan Assessment: * Left upper quadrant/epigastric abdominal pain * Rule out small bowel obstruction, SBFT: No findings of bowel obstruction or perforation. Normal exam. 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 Carlson Consultation Date/Type/Reason Admit Date/Time Jul 16, 2016 at 13:15 Initial Consult Date 07/17/16 Type of Consultation: Gastroenterology 24 HR Interval Summary Free Text/Dictation Tolerating diet Abdominal pain, nausea, vomiting well controlled Patient stable from GI standpoint Exam/Review of Systems Vital Signs Vitals Vital Signs Date Time Temp Pulse Resp B/P Pulse Ox O2 Delivery O2 Flow Rate FiO2 07/22/16 07:26 97.9 78 19 165/85 99 07/20/16 20:15 Room Air Intake and Output 07/21/16 07/21/16 07/22/16 15:00 23:00 07:00 Intake Total 1011.2 ml 340 ml Output Total 600 ml Balance 1011.2 ml -260 ml Exam Constitutional: alert, oriented, well developed Psych: nl mood/affect, no complaints Head: atraumatic, normocephalic Eyes: EOMI, PERRL, nl conjunctiva, nl lids, nl sclera ENMT: nl external ears & nose, nl lips & teeth, nl nasal mucosa & septum Neck: non-tender, supple Respiratory: clear to auscultation, normal air movement Cardiovascular: nl pulses, regular rate and rhythm Gastrointestinal: bowel sounds, nl liver, spleen, soft, surgical scars, slight tenderness (LLQ and epigastric area), No ascites, No distended, No firm, No hepatomegaly, No mass, No rebound or guarding Musculoskeletal: nl extremities to inspection, nl gait and stance Extremities: normal pulses Neurological: LAYOUT FORMER II-XII intact, nl mental status, nl speech, nl strength Skin: nl turgor, No rash or lesions Lymph: nl lymph nodes Results Result Diagram: 07/19/16 0459 07/19/16 0459 Medications Medications Current Medications Ondansetron HCl (Zofran Inj) 4 mg Q6H PRN IV NAUSEA AND/OR VOMITING Last administered on 07/21/16 11:13; Admin Dose 4 MG; Start 07/16/16 at 14:00 Famotidine (Pepcid Iv) 20 mg Q12 IV Last administered on 07/22/16 08:35; Admin Dose 20 MG; Start 07/16/16 at 21:00 Lorazepam (Ativan) 1 mg Q2H PRN IV Anxiety Last administered on 07/21/16 20:23 ; Admin Dose 1 MG; Start 07/16/16 at 14:00 Chlordiazepoxide (Librium) 50 mg TID NGT Last administered on 07/22/16 08:35; Admin Dose 50 MG; Start 07/16/16 at 21:00 Hydromorphone HCl (Dilaudid) 1 mg Q4H PRN IV PAIN Last administered on 08:34; Admin Dose 1 MG; Start 07/16/16 at 19:00 Phenol 1 lozenge 1 lozenge Q1H PRN MT SORE THROAT Last administered on 07:00; Admin Dose 1 LOZENGE; Start 07/17/16 at 06:15 Multivitamins/ Thiamine HCl/ Folic Acid/Sodium Chloride (Mvi-12 Adult/ Vitamin B1/Folic Acid/NS) 1,011.2 ml @ 125 mls/ hr DAILY@09 IVPB Last administered on 07/22/16 08:35; Admin Dose 125 MLS/HR; Start 07/18/16 at 09:00 Hyoscyamine (Levsin (Sl)) 0.125 mg Q4H PRN SL pain; Start 07/19/16 at 21:00 Hydralazine HCl (Apresoline) 10 mg Q6H PRN IV SBP >160 Last administered on 07:42; Admin Dose 10 MG; Start 07/20/16 at 20:30 Acetaminophen (Tylenol Tab) 650 mg Q4H PRN PO Mild pain, fever, headache Last administered on 07/21/16 16:29; Admin Dose 650 MG; Start 07/21/16 at 16:00 Acetaminophen/ Hydrocodone Bitart ([place] (5/325)) 1 tab Q4H PRN PO moderate pain ; Start 07/21/16 at 16:00 BJ ENRIQUE Jul 22, 2016 10:03
--- NOTE | 2016-07-22 14:49 | PDOCDIS ---
Discharge Instructions DIAGNOSIS Discharge Diagnosis: EtOH abuse. Abdominal pain. CONDITION Patient Condition: Stable HOME CARE INSTRUCTIONS: Diet Instructions: Regular FOLLOW UP/APPOINTMENTS Appointments Walker Christensen MD Specialty: Internal Medicine Office Address: [address] [place], [place] [id number] Office OTHER ORDERS: Other Orders: 1. Take a regular diet as tolerated. 2. Resume home medications. 3. Abstain from using alcohol. 4. Follow-up with your primary care physician 1 week. If you do not have a primary care physician, please call Dr. Walker Christensen's office. MARTIN CHEN NP Jul 22, 2016 14:49
[2016-07-22] MEDS ORDERED: LORA1TAB PO (14:51)
--- NOTE | 2016-07-22 18:17 | DS ---
DATE OF ADMISSION: 07/16/2016 DATE OF DISCHARGE: 07/22/2016 FINAL DIAGNOSES: 1. Abdominal pain with CT showing suspicious low-grade partial bowel obstruction. No findings of bowel obstruction or perforation on a small bowel follow-through. 2. ETOH abuse. 3. Chronic pain syndrome. 4. Chronic pancreatitis. 5. History of necrotizing pancreatitis. Status post partial pancreatectomy, pancreatic jejunostomy and splenectomy. 6. 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 7. Anxiety disorder. CONSULTANTS: 1. Anastacio Torres MD hepatobiliary surgery. 2. Marychuy Carlson MD, gastroenterology. HOSPITAL COURSE: This is a 30-year-old male with past medical history of chronic pancreatitis, status post multiple abdominal surgeries including distal pancreatectomy, splenectomy and cholecystectomy who came to the emergency room with chief complaint of sharp, nonexertional, nonradiating epigastric abdominal pain as well as multiple episodes of nonbloody, nonbilious emesis that has been going on for a 1 week period. The patient verbalized that he has been drinking beer on a regular basis. The patient also verbalized a few episodes of diarrhea. The patient verbalized subjective fevers and chills. He denied any chest pain, headache, dyspnea, dysuria, hematuria, or polyuria. The patient underwent a CT scan of the abdomen and pelvis that showed anastomotic allison seen with the jejunum and there is somewhat increased dilatation of the jejunum at the site up to 4.3 cm in gross diameter, suspicious for a low-grade partial small-bowel obstruction. Hence, the patient had an NG tube inserted in the emergency room and the patient was transferred to medical/surgical floor. Hepatobiliary surgery consult was called on this patient. The patient was started on adequate pain medications. The patient was maintained on NG tube decompression. The patient was seen and evaluated by hepatobiliary surgery. The patient underwent a small bowel follow-through on 07/17/2016 and that did not show any evidence of small bowel obstruction or perforation. Hence, the patient's NG tube was discontinued and the patient was started on a clear liquid diet. However, the hepatobiliary surgeon recommended a gastroenterology evaluation. Hence, a gastroenterology consult was called. The patient continued to have severe abdominal pain. The patient is on chronic pain medications at home for chronic abdominal pain. The patient's diet was advanced gradually to a regular consistency diet. The patient was able to tolerate advancement in the diet without evidence of significant gastrointestinal symptoms. The patient was maintained on proton inhibitor therapy. The patient's symptoms improved and the patient was able to tolerate a regular consistency diet without any significant gastrointestinal symptoms. The patient continues to abuse alcohol despite his clinical condition. The patient was maintained on a tapering dose of Librium as well as p.r.n. Ativan for anxiety. The patient had no evidence of any alcohol withdrawal delirium during the hospital course. Upon discharge, the patient will be discharged on p.r.n. Ativan for his underlying anxiety. The patient has history of chronic pancreatitis. The patient had no evidence of any pancreatitis during this admission. The patient's urine drug screen also showed positive for cannabinoids along with barbiturates. The patient was advised on quitting the use of recreational drugs. The patient had a stable, but prolonged hospital course. The patient was cleared by consultants to be discharged home. The patient was able to tolerate a regular consistency diet without any severe abdominal pain. The patient was having regular bowel movements. DISCHARGE DISPOSITION/PLAN: The patient will be discharged home today. The patient was instructed to take a regular diet as tolerated. He was instructed to resume his home medications. He was instructed to abstain from using alcohol. The patient was instructed to follow up with his primary care physician in 1 week and if he does not have a primary care physician, he was instructed to call Dr. Walker Christensen's office. The patient verbalized understanding of his discharge instructions. CONDITION AT DISCHARGE: Stable. DISCHARGE MEDICATIONS: 1. Lorazepam 1 mg p.o. q. p.r.n. anxiety. 2. Famotidine 40 mg p.o. at bedtime. 3. [place] 10/325 one tablet p.o. t.i.d. p.r.n. pain. 4. Creon DR 25,000 units 1 capsule p.o. with meals. 5. Maalox oral suspension 2 teaspoons p.o. t.i.d. p.r.n. pain. 6. Zofran 1 mg p.o. q.6h. p.r.n. nausea/vomiting. PERTINENT LABORATORY AND DIAGNOSTIC DATA: 1. CT scan of abdomen and pelvis. Anastomotic allison at the end of the jejunum and there is somewhat increased dilatation of the jejunum at the site up to 4.3 cm in gross diameter, suspicious for a low-grade partial obstruction. Stool is again seen in the colon and there is no evidence of bowel inflammation. Status post splenectomy and cholecystectomy. Mild persistent hepatomegaly with heterogeneous fatty infiltration. 2. Small bowel x-ray. No findings of bowel obstruction or perforation. No collections. 3. Urine drug screen positive for cannabinoids, benzodiazepines, barbiturates and opioids. 4. Latest CBC: WBC 12.0, hemoglobin 14.4, hematocrit 42.0, platelet count 276. 5. Latest BMP: Sodium 143, potassium 3.9, chloride 102, carbon dioxide 29, anion gap 15, BUN 5, creatinine 0.69, glucose 63, calcium 8.6. 6. Hemoglobin A1c 5.4. 7. Fasting lipid panel: Triglycerides 105, total cholesterol 111, LDL 60, HDL 74. At this time, I would like to thank all the consultants for seeing the patient and providing clinical recommendations. The case and management of this patient was fully discussed with Dr. Knapp. Approximately 35 minutes was spent on coordinating the discharge on this patient. MARTIN KNAPP MD, AM/ARBEN Conf#: [id number] DID#: [id number]
== END 2016-07-22 16:40 | disposition home or self-care (01) | DRG 389 ==
LOC: E/R 07:04 → MS2 13:15
PROVIDERS: ADMIT Family Medicine; ATTEND Family Medicine
PROC: 0D9670Z Drainage of Stomach with Drainage Device, Via Natural or Artificial Opening (ICD-10-PCS; principal; 2016-07-16)
DX: K56.69 Other intestinal obstruction (principal); K86.0 Alcohol-induced chronic pancreatitis; K76.0 Fatty (change of) liver, not elsewhere classified; F11.20 Opioid dependence, uncomplicated; R16.0 Hepatomegaly, not elsewhere classified; F10.10 Alcohol abuse, uncomplicated; F41.9 Anxiety disorder, unspecified; F12.90 Cannabis use, unspecified, uncomplicated; F32.9 Major depressive disorder, single episode, unspecified; G89.4 Chronic pain syndrome; Z90.81 Acquired absence of spleen; Z90.411 Acquired partial absence of pancreas
CPT/HCPCS: 36415; 74176; 74250; 80048; 80053; 80061; 80307; 81001; 81003; 82150; 83036; 83690; 83735; 84100; 84439; 84443; 84484; 85025; 85610; 85730; 93005; 96374; 96375; J0360; J1170; J2060; J2405; J3411; J3480; J7030

== ENCOUNTER 2016-12-07 15:37 | Emergency (ER) | payer OTHER ==
[~2016-12-07] VITALS: Ht 177.8 cm; Wt 80.0 kg
[~2016-12-07 15:37] MED LIST changes: -ERGO500014 PO; +FAMO40TA52 PO; -FER325 PO; +HYDR-902 PO; +LORA1TAB PO; +MAG355OR14 PO; +ONDA-43 PO
[2016-12-07 15:39] VITALS: Ht 177.8 cm; Wt 80.0 kg
[2016-12-07] MEDS ORDERED: ONDANSETRON 4 MG INJ IV STA ×2 (16:20→18:08)
[2016-12-07] MEDS ORDERED: HYDROmorphONE 1 MG/ML SYG IV STA ×2 (16:24→18:20)
[2016-12-07] MEDS ORDERED: FAMOTIDINE 20 MG INJ IV ONE (16:30)
[2016-12-07] MEDS ORDERED: SOD CHLORIDE 0.9% 1,000 ML IV ONE (17:00)
[2016-12-07 17:12] LABS: BASOPHILS % 0.4 % (0.0-2.0); EOSINOPHILS # 0.1 10^3/ul (0.0-0.5); EOSINOPHILS % 0.5 % (0.0-7.0); HEMOGLOBIN 13.5 g/dl (14.0-18.0); LYMPHOCYTES # 2.1 10^3/ul (0.8-2.9); LYMPHOCYTES % 19.9 % (15.0-51.0); MEAN CORPUSCULAR HEMOGLOBIN 32.7 pg (29.0-33.0); MEAN CORPUSCULAR HGB CONC 34.6 g/dl (32.0-37.0); MEAN CORPUSCULAR VOLUME 94.4 fl (82.0-101.0); MEAN PLATELET VOLUME 9.7 fl (7.4-10.4); MONOCYTE # 1.4 10^3/ul (0.3-0.9); MONOCYTES % 13.6 % (0.0-11.0); NEUTROPHIL # 6.9 10^3/ul (1.6-7.5); NEUTROPHILS % 65.3 % (39.0-77.0); PLATELET COUNT 324 10^3/UL (140-415); RED BLOOD COUNT 4.13 10^6/ul (4.70-6.10); RED CELL DISTRIBUTION WIDTH 14.2 % (11.5-14.5); WHITE BLOOD COUNT 10.5 10^3/ul (4.8-10.8)
[2016-12-07 17:28] LABS: CALCIUM 9.1 mg/dl (8.4-10.2); CREATININE 0.7 mg/dl (0.61-1.24); POTASSIUM 3.9 mmol/L (3.5-5.1)
[2016-12-07 17:29] LABS: ALBUMIN 4.1 g/dl (3.3-4.9); ALBUMIN/GLOBULIN RATIO 1.41; BILIRUBIN,INDIRECT 0.2 mg/dl (0-1.1); BILIRUBIN,TOTAL 0.2 mg/dl (0.2-1.3)
--- NOTE | 2016-12-07 17:33 | ERD ---
ER Documentation Chief Complaint Date/Time DATE: 12/07/16 TIME: 17:30 Chief Complaint AP HPI This a 31-year-old male who presents the emergency department today complaining of abdominal pain. Patient states he has a history of chronic pancreatitis secondary to alcohol abuse. States he has not used alcohol since July of this year. States he has had some vomiting and is unable to take his Dilaudid pain pills that he takes at home. States that the pain is been worse over the past couple of weeks. States his last bowel movement was last night. States he does have a primary care doctor that he follows up with and also scheduled for an endoscopy and has a pain management doctor. States he had a partial pancreatomy and splenic vein rerouted. Denies any fevers or chills. ROS All systems reviewed and are negative except as per history of present illness. Medications Home Meds Active Scripts Metoclopramide* (Reglan*) 10 Mg Tablet, 10 MG PO Q6 Y for NAUSEA AND/OR VOMITING , #20 TAB Prov:ANGELO HOBBS PA-C 12/07/16 Hydrocodone/Acetaminophen ([place] 5-325 Tablet) 1 Each Tablet, 1 TAB PO Q6H Y for PAIN, #12 TAB Prov:ANGELO HOBBS PA-C 12/07/16 Electrolyte,Oral (Pedialyte) 1,000 Ml Solution, 100 ML PO Q6 Y for VOMITTING, # 1000 ML Prov:ANGELO HOBBS PA-C 12/07/16 Lorazepam* (Lorazepam*) 1 Mg Tablet, 1 MG PO Q8 Y for ANXIETY, #30 TAB Prov:MARTIN CHEN NP 07/22/16 Ondansetron Hcl* (Zofran*) 4 Mg Tab, 4 MG PO Q6H Y for NAUSEA AND OR VOMITING, # 12 TAB Prov:GLENN LOPEZ MD 07/16/16 Mag Hydrox/Al Hydrox/Simeth (Maalox Advanced Suspension) 355 Ml Oral.susp, 2 TSP PO TID for PAIN, #24 OZ Prov:GLENN LOPEZ MD 07/16/16 Famotidine* (Famotidine*) 40 Mg Tablet, 40 MG PO HS, #30 TAB Prov:GLENN LOPEZ MD 07/16/16 Reported Medications Hydrocodone/Acetaminophen ([place] 10-325 Tablet) 1 Each Tablet, 1 EACH PO TID Y for PAIN, TAB 07/16/16 Rgvtlh-Slewvsrx-Fhlcdih* (Sharon MICHAUD* 24,000) 24,000 L-76,000-120,000 Unit Capsule., 1 CAP PO WITH MEALS, CAP 07/21/14 Allergies Allergies: Coded Allergies: morphine (Verified Allergy, Intermediate, itchy, hives, 07/16/16) PMhx/Soc History of Surgery: Yes (PARTIAL PANCREOTOMY (TWICE) , GB REMOVAL) Anesthesia Reaction: No Hx Neurological Disorder: No Hx Respiratory Disorders: No Hx Cardiac Disorders: No Hx Psychiatric Problems: No Hx Alcohol Use: Yes Hx Substance Use: Yes Hx Tobacco Use: No Smoking Status: Never smoker Physical Exam Vitals Vital Signs Date Time Temp Pulse Resp B/P Pulse Ox O2 Delivery O2 Flow Rate FiO2 12/07/16 19:41 60 16 119/69 98 Room Air 12/07/16 15:39 98.6 73 18 113/55 99 Physical Exam Const: Thin appearing no acute distress Head: Atraumatic Eyes: Normal Conjunctiva ENT: Normal External Ears, Nose and Mouth. Neck: Full range of motion..~ No meningismus. Resp: Clear to auscultation bilaterally Cardio: Regular rate and rhythm, no murmurs Abd: Soft, diffuse abdominal tenderness worse in the left upper quadrant non distended. Normal bowel sounds Skin: No petechiae or rashes Back: No midline or flank tenderness Ext: No cyanosis, or edema Neur: Awake and alert Psych: Normal Mood and Affect Result Diagram: 12/07/16 1645 12/07/16 1645 Results 24 hrs Laboratory Tests Test 12/07/16 16:45 White Blood Count 10.510^3/ul Red Blood Count 4.1310^6/ul Hemoglobin 13.5g/dl Hematocrit 39.0% Mean Corpuscular Volume 94.4fl Mean Corpuscular Hemoglobin 32.7pg Mean Corpuscular Hemoglobin Concent 34.6g/dl Red Cell Distribution Width 14.2% Platelet Count 13836^3/UL Mean Platelet Volume 9.7fl Neutrophils % 65.3% Lymphocytes % 19.9% Monocytes % 13.6% Eosinophils % 0.5% Basophils % 0.4% Nucleated Red Blood Cells % 0.0/100WBC Neutrophils # 6.910^3/ul Lymphocytes # 2.110^3/ul Monocytes # 1.410^3/ul Eosinophils # 0.110^3/ul Basophils # 0.010^3/ul Nucleated Red Blood Cells # 0.010^3/ul Sodium Level 147mmol/L Potassium Level 3.9mmol/L Chloride Level 104mmol/L Carbon Dioxide Level 29mmol/L Anion Gap 18 Blood Urea Nitrogen 8mg/dl Creatinine 0.70mg/dl Glucose Level 73mg/dl Calcium Level 9.1mg/dl Total Bilirubin 0.2mg/dl Direct Bilirubin 0.00mg/dl Indirect Bilirubin 0.2mg/dl Aspartate Amino Transf (AST/SGOT) 19IU/L Alanine Aminotransferase (ALT/SGPT) 37IU/L Alkaline Phosphatase 45IU/L Total Protein 7.0g/dl Albumin 4.1g/dl Globulin 2.90g/dl Albumin/Globulin Ratio 1.41 Lipase 32U/L Current Medications Medications (Trade) Dose Ordered Sig/Desiree Route PRN Reason Start Time Stop Time Status Last Admin Dose Admin Ondansetron HCl (Zofran Inj) 4 mg ONCE STAT IV 12/07/16 16:20 12/07/16 16:21 DC 12/07/16 16:38 Hydromorphone HCl (Dilaudid) 1 mg ONCE STAT IV 12/07/16 16:24 12/07/16 16:25 DC 12/07/16 16:39 Famotidine 20 mg 20 mg ONCE ONCE IV 12/07/16 16:30 12/07/16 16:31 DC 12/07/16 16:38 Sodium Chloride (NS) 1,000 ml @ 1,000 mls/hr Q1H ONCE IV 12/07/16 17:00 12/07/16 17:59 DC 12/07/16 16:55 Ondansetron HCl (Zofran Inj) 4 mg ONCE STAT IV 12/07/16 18:08 12/07/16 18:09 DC 12/07/16 18:55 Hydromorphone HCl 1 mg 1 mg ONCE STAT IV 12/07/16 18:20 12/07/16 18:22 DC 12/07/16 18:56 Sodium Chloride (NS) 500 ml @ 500 mls/hr Q1H ONCE IV 12/07/16 18:30 12/07/16 19:29 DC 12/07/16 18:56 Metoclopramide HCl (Reglan) 10 mg ONCE ONCE IV 12/07/16 20:00 12/07/16 20:01 DC 12/07/16 20:00 Procedures/[facility] This is a 31-year-old male who presents the emergency department today complaining of abdominal pain and nausea and decreased appetite and inability to take his pain pills. Upon review of patient's medical records patient has a history of chronic pancreatitis. He has had surgery with Dr. Patrick lopes for partial pancreatectomy and splenic vein rerouted and he is also had partial bowel obstruction. Patient states that this is his usual pain however it is been worse the past couple of weeks. Patient's primary care doctor is Dr. 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 Willoughby Patient is scheduled for an endoscopy in 2 days with the GI specialist Dr. Menjivar Given patient's complex history and history of chronic pancreatitis I did repeat laboratory workup today. Patient has had multiple CT scans in the past and I do not feel that that is necessary at this time. Laboratory workup shows no elevated white blood cell count. His hemoglobin is very mildly decreased. Platelets are within normal limits. Sodium was mildly elevated otherwise electrolytes are within normal limits. Liver enzymes are within normal limits. Lipase is within normal limits. Patient was given Dilaudid, Zofran and IV fluids here in the emergency department. Patient was still complaining of pain and was given 1 more milligram of Dilaudid and 4 mg of Zofran. Patient stated he still felt nauseated however his pain improved and he was therefore given Reglan. Mother indicated that she wanted the patient admitted to the hospital until he got his endoscopic in 2 days because he has had decreased appetite and he is not eating because he is vomiting.. I have explained to the mother that there is no clinical indication to admit the patient at this time. Mother was also stating that the patient is out of pain medications because he has vomited up. I will not discharge the patient home with Dilaudid however I will give him a short course of [place] and Reglan for home in addition to Pedialyte. He may call his pain management doctor tomorrow. Patient symptoms at this time most consistent with chronic abdominal pain secondary to chronic pancreatitis of her no evidence to suggest acute pancreatitis at this time. Patient's laboratory workup is normal at this time low suspicion for acute surgical abdomen. Patient did have a bowel movement last night of low suspicion for bowel obstruction at this time Discussed the patient with Dr. Colin and he is seen and evaluated the patient and is in agreement with the plan. Note I was notified prior to discharge that the patient was requesting Percocet instead of the [place] because it "works better". Nursing staff explained to the patient that he may call his pain management doctor tomorrow for refill of his Dilaudid. Departure Diagnosis: Primary Impression: Abdominal pain Abdominal location: generalized Qualified Code: R10.84 - Generalized abdominal pain Condition: Fair ANGELO HOBBS PA-C Dec 07, 2016 17:33
[2016-12-07] MEDS ORDERED: SOD CHLORIDE 0.9% 500 ML IV ONE (18:30)
[2016-12-07 19:41] VITALS: BP 119/69; PULSE 60; RESP 16
[2016-12-07] MEDS ORDERED: ELEC100080 PO (19:52)
[2016-12-07] MEDS ORDERED: HYDR-906 PO (19:53)
[2016-12-07] MEDS ORDERED: METO10TA92 PO (19:53)
[2016-12-07] MEDS ORDERED: METOCLOPRAMIDE 10 MG INJ IV ONE (20:00)
== END 2016-12-07 20:11 | disposition home or self-care (01) ==
LOC: FTE 15:37
DX: R10.84 Generalized abdominal pain (principal)
CPT/HCPCS: 80053; 83690; 85025; 96374; 96375; 96376; J1170; J2405; J2765; J7030; J7040; Z7502; Z7610

== ENCOUNTER 2016-12-10 13:27 | Inpatient (IN) | payer OTHER ==
[~2016-12-10] VITALS: Ht 180.3 cm; Wt 55.1 kg
[~2016-12-10 13:27] MED LIST changes: +ELEC100080 PO; +HYDR-906 PO; +METO10TA92 PO
[2016-12-10] MEDS ORDERED: ONDANSETRON 4 MG INJ IV STA (14:59)
[2016-12-10] MEDS ORDERED: SOD CHLORIDE 0.9% 1,000 ML IV STA (14:59)
[2016-12-10] MEDS ORDERED: HYDROmorphONE 1 MG/ML SYG IV STA ×2 (14:59→16:20)
--- NOTE | 2016-12-10 15:21 | ERA ---
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 Patient states he has had vomiting for the last 2 weeks. Patient states he is unable to tolerate p.o. fluids or food. Patient states his abdominal pain is episodic in nature however it is persistent for the last 3 weeks. Pain is localized to the epigastric region. Patient states he has been unable to take his Dilaudid pain medication because of his ongoing vomiting. 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 Patient also was scheduled to have an endoscopy done yesterday however he was unable to complete it secondary to his ongoing abdominal pain and vomiting. Patient denies fevers or chills. Patient denies any chest pain, shortness breath, loss of consciousness. Of note, patient was seen here on December 07, 2016. At that time patient was discharged with instructions to follow-up with his GI specialist however he did not. Patient and his mother are requesting admission given his ongoing symptoms. ROS All systems reviewed and are negative except as per history of present illness. Medications Home Meds Active Scripts Metoclopramide* (Reglan*) 10 Mg Tablet, 10 MG PO Q6 Y for NAUSEA AND/OR VOMITING , #20 TAB Prov:ANGELO HOBBS PA-C 12/07/16 Hydrocodone/Acetaminophen ([place] 5-325 Tablet) 1 Each Tablet, 1 TAB PO Q6H Y for PAIN, #12 TAB Prov:ANGELO HOBBS PA-C 12/07/16 Electrolyte,Oral (Pedialyte) 1,000 Ml Solution, 100 ML PO Q6 Y for VOMITTING, # 1000 ML Prov:ANGELO HOBBS PA-C 12/07/16 Lorazepam* (Lorazepam*) 1 Mg Tablet, 1 MG PO Q8 Y for ANXIETY, #30 TAB Prov:MARTIN HCEN NP 07/22/16 Ondansetron Hcl* (Zofran*) 4 Mg Tab, 4 MG PO Q6H Y for NAUSEA AND OR VOMITING, # 12 TAB Prov:GLENN LOPEZ MD 07/16/16 Mag Hydrox/Al Hydrox/Simeth (Maalox Advanced Suspension) 355 Ml Oral.susp, 2 TSP PO TID for PAIN, #24 OZ Prov:GLENN LOPEZ MD 07/16/16 Famotidine* (Famotidine*) 40 Mg Tablet, 40 MG PO HS, #30 TAB Prov:GLENN LOPEZ MD 07/16/16 Reported Medications Hydrocodone/Acetaminophen ([place] 10-325 Tablet) 1 Each Tablet, 1 EACH PO TID Y for PAIN, TAB 07/16/16 Laqpla-Vzinmgon-Liqodpw* ([place] * 24,000) 24,000 L-76,000-120,000 Unit Capsule.dr, 1 CAP PO WITH MEALS, CAP 07/21/14 Allergies Allergies: Coded Allergies: morphine (Verified Allergy, Intermediate, itchy, hives, 12/10/16) PMhx/Soc History of Surgery: Yes (PARTIAL PANCREOTOMY (TWICE) , GB REMOVAL) Anesthesia Reaction: No Hx Neurological Disorder: No Hx Respiratory Disorders: No Hx Cardiac Disorders: No Hx Psychiatric Problems: No Hx Alcohol Use: No Hx Substance Use: Yes (marijuana for appetite stimulant) Hx Tobacco Use: Yes Smoking Status: Former smoker Physical Exam Vitals Vital Signs Date Time Temp Pulse Resp B/P Pulse Ox O2 Delivery O2 Flow Rate FiO2 12/10/16 18:00 98.3 72 20 140/85 98 Room Air 12/10/16 17:00 98.3 72 20 143/95 98 Room Air 12/10/16 13:35 98.5 79 18 117/65 97 Physical Exam GENERAL: Ill appearing male. Appears in no acute distress. HEAD: Normocephalic, atraumatic. EYES: Pupils are equally reactive bilaterally. EOMs grossly intact. No conjunctival erythema. ENT: Moist mucous membranes. No uvula deviation. No kissing tonsils. NECK: Supple. No meningismus. Normal range of motion of the neck. LUNG: Clear to auscultation bilaterally. No rhonchi, wheezing, rales or coarse breath sounds. HEART: Regular rate and rhythm. No murmurs, rubs or gallops. ABDOMEN: Previous surgical scars noted. Soft and nondistended. Tender to palpation in all 4 quadrants. Worse in the epigastric region. Positive bowel sounds in all four quadrants. No rebound tenderness, no guarding. (-) McBurney' s point tenderness. EXTREMITIES: Equal pulses bilaterally. No peripheral clubbing, cyanosis or edema. No unilateral leg swelling. NEUROLOGIC: Alert and oriented. Moving all four extremities without any difficulty. Normal speech. Steady gait. SKIN: Normal color. Warm and dry. No rashes or lesions. Result Diagram: 12/10/16 1520 12/10/16 1520 Results 24 hrs Laboratory Tests Test 12/10/16 15:20 White Blood Count 20.210^3/ul Red Blood Count 4.1210^6/ul Hemoglobin 13.5g/dl Hematocrit 38.2% Mean Corpuscular Volume 92.7fl Mean Corpuscular Hemoglobin 32.8pg Mean Corpuscular Hemoglobin Concent 35.3g/dl Red Cell Distribution Width 13.7% Platelet Count 15904^3/UL Mean Platelet Volume 9.5fl Neutrophils % 79.0% Lymphocytes % 9.9% Monocytes % 10.3% Eosinophils % 0.2% Basophils % 0.3% Nucleated Red Blood Cells % 0.0/100WBC Neutrophils # 15.910^3/ul Lymphocytes # 2.010^3/ul Monocytes # 2.110^3/ul Eosinophils # 0.110^3/ul Basophils # 0.110^3/ul Nucleated Red Blood Cells # 0.010^3/ul Urine Color YELLOW Urine Clarity CLEAR Urine pH 6.0 Urine Specific [place] 1.012 Urine Ketones TRACEmg/dL Urine Nitrite NEGATIVEmg/dL Urine Bilirubin NEGATIVEmg/dL Urine Urobilinogen NEGATIVEmg/dL Urine Leukocyte Esterase NEGATIVELeu/ul Urine Hemoglobin NEGATIVEmg/dL Urine Glucose NEGATIVEmg/dL Urine Total Protein NEGATIVEmg/dl Sodium Level 145mmol/L Potassium Level 3.4mmol/L Chloride Level 102mmol/L Carbon Dioxide Level 28mmol/L Anion Gap 18 Blood Urea Nitrogen 7mg/dl Creatinine 0.61mg/dl Glucose Level 78mg/dl Calcium Level 8.9mg/dl Total Bilirubin 0.3mg/dl Direct Bilirubin 0.00mg/dl Indirect Bilirubin 0.3mg/dl Aspartate Amino Transf (AST/SGOT) 20IU/L Alanine Aminotransferase (ALT/SGPT) 30IU/L Alkaline Phosphatase 56IU/L Total Protein 7.0g/dl Albumin 3.9g/dl Globulin 3.10g/dl Albumin/Globulin Ratio 1.25 Lipase 84U/L Current Medications Medications (Trade) Dose Ordered Sig/Desiree Route PRN Reason Start Time Stop Time Status Last Admin Dose Admin Sodium Chloride (NS) 1,000 ml @ 1,000 mls/hr Q1H STAT IV 12/10/16 14:59 12/10/16 15:58 DC 12/10/16 15:20 Hydromorphone HCl (Dilaudid) 1 mg ONCE STAT IV 12/10/16 14:59 12/10/16 15:02 DC 12/10/16 15:21 Ondansetron HCl (Zofran Inj) 4 mg ONCE STAT IV 12/10/16 14:59 12/10/16 15:02 DC 12/10/16 15:20 Ondansetron HCl (Zofran Inj) 4 mg BRIDGE ORDER PRN IV NAUSEA AND/OR VOMITING 12/10/16 15:30 12/11/16 15:29 12/10/16 16:23 Acetaminophen (Tylenol Tab) 650 mg ER BRIDGE PRN PO MILD PAIN/FEVER 12/10/16 15:30 12/11/16 15:29 Hydromorphone HCl 1 mg 1 mg ONCE STAT IV 12/10/16 16:20 12/10/16 16:21 DC 12/10/16 16:23 Sodium Chloride (NS) 1,000 ml @ 80 mls/hr [id number] IV 12/10/16 17:30 12/10/16 17:47 Ondansetron HCl (Zofran Inj) 4 mg Q6H PRN IV NAUSEA AND/OR VOMITING 12/10/16 17:00 Hydromorphone HCl (Dilaudid) 0.5 mg Q4H PRN IV SEVERE PAIN LEVEL 7-10 12/10/16 17:00 12/10/16 17:48 Famotidine 20 mg 20 mg Q12 IV 12/10/16 21:00 Piperacillin Sod/ Tazobactam Sod (Zosyn 3.375gm/ 100 ml (Pmx)) 100 ml @ 200 mls/hr Q6 IVPB 12/10/16 18:00 Procedures/[facility]M ED COURSE: The patient was stable throughout ED course. I kept the patient and/or family informed of laboratory and diagnostic imaging results throughout the ED course. MEDICATIONS GIVEN: IV fluids, Dilaudid, Zofran Patient tolerated medication well with no adverse reactions. Patient reported improvement in pain. MEDICAL DECISION MAKING: This is a 31-year-old male with a history of chronic pancreatitis secondary to alcohol abuse who presents emergency department for ongoing abdominal pain and vomiting for the last 3 weeks. Of note patient has had numerous visits to this emergency department for similar concerns. She was scheduled to have an endoscopy completed on an outpatient basis however he did not complete it secondary to his symptoms. Vital signs were reviewed. Patient is afebrile. Normal exam revealed diffuse tenderness in all 4 quadrants. Patient did have a white count of 20.2. Elevation of white count is consistent with previous visits. This elevation may be due to recent vomiting. Imaging studies will be ordered by the inpatient management team if necessary given the patient has had numerous CT scans in the past. Patient's hemoglobin level was noted to be 13.5 , slight anemia noted. CMP showed no evidence of electrolyte abnormalities, severe acidosis, alkalosis, renal failure, or liver disease. Lipase showed no evidence of acute pancreatitis. UA showed no evidence of acute infection or hematuria. Urine test was negative. Patient was initially given IV fluids, Dilaudid and Zofran. She required additional doses of Dilaudid. Given recurrent visits to the emergency department as well as intractable abdominal pain and vomiting, patient will be admitted for further workup and management. I discussed this case with my supervising physician Dr. Colin. Dr. Colin spoke to Dr. Linda who agrees to admission. Patient was stable throughout the ED course. Admitting diagnosis: chronic pancreatitis, intractable abdominal pain, intractable vomiting. Departure Diagnosis: Primary Impression: Intractable abdominal pain Additional Impressions: Intractable vomiting Qualified Code: G43.A1 - Intractable cyclical vomiting with nausea Chronic pancreatitis Qualified Code: K86.0 - Alcohol-induced chronic pancreatitis Condition: MEMO Giordano PA-C Dec 10, 2016 15:21
[2016-12-10] MEDS ORDERED: ONDANSETRON 4 MG INJ IV PRN (15:30)
[2016-12-10] MEDS ORDERED: ACETAMINOPHEN 325 MG TAB PO PRN (15:30)
[2016-12-10 15:36] LABS: ABNORMAL IP MESSAGE 1; BASOPHIL # 0.1 10^3/ul (0.0-0.1); BASOPHILS % 0.3 % (0.0-2.0); EOSINOPHILS # 0.1 10^3/ul (0.0-0.5); EOSINOPHILS % 0.2 % (0.0-7.0); HEMATOCRIT 38.2 % (42.0-52.0); HEMOGLOBIN 13.5 g/dl (14.0-18.0); LYMPHOCYTES % 9.9 % (15.0-51.0); MEAN CORPUSCULAR HEMOGLOBIN 32.8 pg (29.0-33.0); MEAN CORPUSCULAR HGB CONC 35.3 g/dl (32.0-37.0); MEAN CORPUSCULAR VOLUME 92.7 fl (82.0-101.0); MEAN PLATELET VOLUME 9.5 fl (7.4-10.4); MONOCYTE # 2.1 10^3/ul (0.3-0.9); MONOCYTES % 10.3 % (0.0-11.0); NEUTROPHIL # 15.9 10^3/ul (1.6-7.5); PLATELET COUNT 332 10^3/UL (140-415); POSITIVE DIFF @See below; RED BLOOD COUNT 4.12 10^6/ul (4.70-6.10); RED CELL DISTRIBUTION WIDTH 13.7 % (11.5-14.5); WHITE BLOOD COUNT 20.2 10^3/ul (4.8-10.8)
[2016-12-10 15:42] LABS: ADD UMIC NO; UR ASCORBIC ACID NEGATIVE (NEGATIVE); UR BILIRUBIN (Dip) NEGATIVE (NEGATIVE); UR BLOOD (Dip) NEGATIVE (NEGATIVE); UR CLARITY CLEAR (CLEAR); UR COLOR YELLOW (YELLOW); UR GLUCOSE (Dip) NEGATIVE (NEGATIVE); UR KETONES (Dip) TRACE mg/dL (NEGATIVE); UR LEUKOCYTE ESTERASE (Dip) NEGATIVE Leu/ul (NEGATIVE); UR NITRITE (Dip) NEGATIVE (NEGATIVE); UR SPECIFIC GRAVITY (Dip) 1.012 (1.003-1.030); UR TOTAL PROTEIN (Dip) NEGATIVE (NEGATIVE); UR UROBILINOGEN (Dip) NEGATIVE (NEGATIVE)
[2016-12-10 16:11] LABS: ALBUMIN 3.9 g/dl (3.3-4.9); ALBUMIN/GLOBULIN RATIO 1.25; BILIRUBIN,INDIRECT 0.3 mg/dl (0-1.1); BILIRUBIN,TOTAL 0.3 mg/dl (0.2-1.3); CALCIUM 8.9 mg/dl (8.4-10.2); CREATININE 0.61 mg/dl (0.61-1.24); POTASSIUM 3.4 mmol/L (3.5-5.1)
--- NOTE | 2016-12-10 17:14 | HP ---
Date/Time of Note Date/Time of Note DATE: 12/10/16 TIME: 17:03 Assessment/Plan VTE Prophylaxis VTE Prophylaxis Intervention: SCD's Assessment/Plan Chief Complaint/Hosp Course Patient is a 31-year-old male with past medical history of chronic abdominal pain and chronic pancreatitis status post multiple abdominal surgeries who presents to [facility] for 3 week onset of nausea vomiting and abdominal pain Assessment and problem list Abdominal pain Nausea Vomiting Chronic pancreatitis Alcohol abuse, stable Leukocytosis Mild hypokalemia Plan -Consulted general surgery, Dr. Torres, recommended KUB for now, will order CT abdomen pain acutely worsens -IV hydration and n.p.o. -Zosyn given leukocytosis, cultures will be ordered -As needed pain medication -As needed electrolyte replacement Corwin Wilkins DO Problems: HPI/ROS Admit Date/Time Admit Date/Time Hx of Present Illness Patient is a 30-year-old male with a past medical history significant for chronic pancreatitis secondary to alcohol and is status post multiple abdominal surgeries including distal pancreatectomy, splenectomy, and cholecystectomy from Dr. Torres who presents again with left upper quadrant abdominal pain. Patient reports approximately 2-3 weeks of inability to tolerate p.o. due to abdominal pain and nausea. Patient states that he has not been able to take pain medication for approximately 2 weeks. Patient states that unlike last time which was exacerbated by alcohol, this time he has been abstaining from alcohol and has not been taking any other drugs except for marijuana use. Patient states that he missed an appointment for an endoscopy, upper, yesterday due to not feeling well. Patient was admitted by the ED. PMH: Alcoholic pancreatitis, alcohol abuse, anxiety, chronic pain PSH: Distal pancreatectomy, splenectomy, cholecystectomy Social: Denies smoking, quit drinking for 5 months, marijuana use positive Meds: [place], Creon PMH/Family/Social Past Surgical History Past Surgical Hx: bowel resection, cholecystectomy, other Social History Smoking Status: Former smoker Exam/Review of Systems Vital Signs Vitals Vital Signs Date Time Temp Pulse Resp B/P Pulse Ox O2 Delivery O2 Flow Rate FiO2 12/10/16 13:35 98.5 79 18 117/65 97 Exam Exam Physical exam General: Patient is laying in bed and answers questions appropriately Mentation: Patient is alert and oriented 4, Head: Normocephalic atraumatic Eyes: EOMI, pupils reactive to light Neck: Supple, nontender, midline Respiratory: Clear to auscultation bilaterally Cardiovascular: regular rate, no obvious murmurs Gastrointestinal: mild tenderness to palpation. no guarding. Neurological: Moves all extremities spontaneously Skin: No new skin lesions Labs Result Diagram: 12/10/16 1520 12/10/16 1520 CORWIN WILKINS Dec 10, 2016 17:14
--- NOTE | 2016-12-10 17:22 | RADRPT ---
PROCEDURE: XR Abdomen. CLINICAL INDICATION: Abdomen pain. TECHNIQUE: AP supine abdomen x-ray. COMPARISON: 07/17/2016. FINDINGS: The bowel gas pattern is normal with no evidence of obstruction. Surgical clips are present in the upper abdomen there is a single surgical clip in the left side of the pelvis. There are no abnormal calcifications overlying the urinary tracts. The osseus structures are unremarkable. IMPRESSION: 1. Prior abdominal and pelvic surgery. 2. No evidence of obstruction. RPTAT: QQ .Rafiq Bentley MD, MD Date Time Electronically viewed and signed by .Rafiq Bentley MD, MD on 12/10/2016 17:21 .R/
[2016-12-10] MEDS: SOD CHLORIDE 0.9% 1,000 ML IV SCH (17:47)
[2016-12-10] MEDS: HYDROmorphONE 1 MG/ML SYG IV PRN ×2 (17:48→21:51)
[2016-12-10 18:00] VITALS: TEMP 98.3
[2016-12-10] MEDS: PIPER-TAZO 3.375 GM IV (PMX) 100 ML IVPB SCH (18:00)
[2016-12-10 18:26] VITALS: BP 141/69; PULSE 68; RESP 18
[2016-12-10 18:36] VITALS: Ht 180.3 cm; Wt 55.1 kg
[2016-12-10 19:50] VITALS: BP 117/73; RESP 20
[2016-12-10] MEDS: FAMOTIDINE 20 MG INJ IV SCH (21:14)
[2016-12-10] MEDS: ALPRAZOLAM 0.5 MG TAB PO SCH (21:14)
[2016-12-11 02:15] VITALS: BP 123/77; RESP 18
[2016-12-11] MEDS: HYDROmorphONE 1 MG/ML SYG IV PRN ×6 (02:35→21:00)
[2016-12-11] MEDS: PIPER-TAZO 3.375 GM IV (PMX) 100 ML IVPB SCH ×5 (02:45→19:00)
[2016-12-11] MEDS: ONDANSETRON 4 MG INJ IV PRN ×3 (02:52→16:46)
[2016-12-11] MEDS: SOD CHLORIDE 0.9% 1,000 ML IV SCH (06:37)
[2016-12-11] MEDS: ALPRAZOLAM 0.5 MG TAB PO SCH ×3 (07:03→22:06)
[2016-12-11 08:24] VITALS: BP 136/89; RESP 18
[2016-12-11] MEDS: FAMOTIDINE 20 MG INJ IV SCH ×2 (08:54→20:19)
[2016-12-11 11:23] LABS: BASOPHIL # 0.1 10^3/ul (0.0-0.1); BASOPHILS % 0.7 % (0.0-2.0); EOSINOPHILS # 0.1 10^3/ul (0.0-0.5); EOSINOPHILS % 1.5 % (0.0-7.0); HEMATOCRIT 36.7 % (42.0-52.0); HEMOGLOBIN 12.7 g/dl (14.0-18.0); LYMPHOCYTES # 2.2 10^3/ul (0.8-2.9); LYMPHOCYTES % 29.8 % (15.0-51.0); MEAN CORPUSCULAR HEMOGLOBIN 32.7 pg (29.0-33.0); MEAN CORPUSCULAR HGB CONC 34.6 g/dl (32.0-37.0); MEAN CORPUSCULAR VOLUME 94.6 fl (82.0-101.0); MEAN PLATELET VOLUME 9.7 fl (7.4-10.4); MONOCYTES % 13.8 % (0.0-11.0); NEUTROPHIL # 3.9 10^3/ul (1.6-7.5); NEUTROPHILS % 54.1 % (39.0-77.0); PLATELET COUNT 314 10^3/UL (140-415); RED BLOOD COUNT 3.88 10^6/ul (4.70-6.10); WHITE BLOOD COUNT 7.2 10^3/ul (4.8-10.8)
[2016-12-11 11:36] LABS: CALCIUM 8.3 mg/dl (8.4-10.2); CREATININE 0.67 mg/dl (0.61-1.24)
[2016-12-11] MEDS: DEXTROSE 5%-0.45% NACL 1,000 ML IV SCH (14:09)
--- NOTE | 2016-12-11 14:31 | PN ---
Date/Time of Note Date/Time of Note DATE: 12/11/16 TIME: 14:30 Assessment/Plan VTE Prophylaxis VTE Prophylaxis Intervention: ambulation Lines/Catheters IV Catheter Type (from Nrs): Saline Lock Assessment/Plan Chief Complaint/Hosp Course Patient is a 31-year-old male with past medical history of chronic abdominal pain and chronic pancreatitis status post multiple abdominal surgeries who presents to [facility] for 3 week onset of nausea vomiting and abdominal pain Assessment and problem list Abdominal pain Nausea Vomiting Chronic pancreatitis Alcohol abuse, stable Leukocytosis Mild hypokalemia Plan -Consulted general surgery, SHAREE Zee no acute disease, will order CT if acute change in pain -IV hydration and clears if tolerating -Zosyn given leukocytosis, cultures will be ordered, white count normalized. monitor for now -As needed pain medication -As needed electrolyte replacement Corwin Wilkins DO Problems: Subjective 24 Hr Interval Summary Free Text/Dictation still nauseated Exam/Review of Systems Vital Signs Vitals Vital Signs Date Time Temp Pulse Resp B/P Pulse Ox O2 Delivery O2 Flow Rate FiO2 12/11/16 08:24 98.0 55 18 136/89 98 12/10/16 18:26 Room Air Intake and Output 12/10/16 12/10/16 12/11/16 15:00 23:00 07:00 Intake Total 820 ml Output Total 300 ml Balance 520 ml Exam Physical exam General: Patient is laying in bed and answers questions appropriately Mentation: Patient is alert and oriented 4, Head: Normocephalic atraumatic Eyes: EOMI, pupils reactive to light Neck: Supple, nontender, midline Respiratory: Clear to auscultation bilaterally Cardiovascular: regular rate, no obvious murmurs Gastrointestinal: mild tenderness to palpation. no guarding. Neurological: Moves all extremities spontaneously Skin: No new skin lesions Results Result Diagram: 12/11/16 1050 12/11/16 1050 Results 24 hrs Laboratory Tests Test 12/10/16 15:20 12/11/16 10:50 White Blood Count 20.2 #H 7.2 # Red Blood Count 4.12 L 3.88 L Hemoglobin 13.5 L 12.7 L Hematocrit 38.2 L 36.7 L Mean Corpuscular Volume 92.7 94.6 Mean Corpuscular Hemoglobin 32.8 32.7 Mean Corpuscular Hemoglobin Concent 35.3 34.6 Red Cell Distribution Width 13.7 14.0 Platelet Count 332 314 Mean Platelet Volume 9.5 9.7 Neutrophils % 79.0 H 54.1 Lymphocytes % 9.9 L 29.8 Monocytes % 10.3 13.8 H Eosinophils % 0.2 1.5 Basophils % 0.3 0.7 Nucleated Red Blood Cells % 0.0 0.0 Neutrophils # 15.9 H 3.9 Lymphocytes # 2.0 2.2 Monocytes # 2.1 H 1.0 H Eosinophils # 0.1 0.1 Basophils # 0.1 0.1 Nucleated Red Blood Cells # 0.0 0.0 Urine Color YELLOW Urine Clarity CLEAR Urine pH 6.0 Urine Specific [place] 1.012 Urine Ketones TRACE A Urine Nitrite NEGATIVE Urine Bilirubin NEGATIVE Urine Urobilinogen NEGATIVE Urine Leukocyte Esterase NEGATIVE Urine Hemoglobin NEGATIVE Urine Glucose NEGATIVE Urine Total Protein NEGATIVE Sodium Level 145 H 143 Potassium Level 3.4 L 4.0 Chloride Level 102 106 Carbon Dioxide Level 28 26 Anion Gap 18 H 15 Blood Urea Nitrogen 7 9 Creatinine 0.61 0.67 Glucose Level 78 60 #L Calcium Level 8.9 8.3 L Total Bilirubin 0.3 Direct Bilirubin 0.00 Indirect Bilirubin 0.3 Aspartate Amino Transf (AST/SGOT) 20 Alanine Aminotransferase (ALT/SGPT) 30 Alkaline Phosphatase 56 Total Protein 7.0 Albumin 3.9 Globulin 3.10 Albumin/Globulin Ratio 1.25 Lipase 84 Medications Medications Current Medications Ondansetron HCl (Zofran Inj) 4 mg Q6H PRN IV NAUSEA AND/OR VOMITING Last administered on 12/11/16 10:06; Admin Dose 4 MG; Start 12/10/16 at 17:00 Famotidine 20 mg 20 mg Q12 IV Last administered on 12/11/16 08:54; Admin Dose 20 MG; Start 12/10/16 at 21:00 Piperacillin Sod/ Tazobactam Sod (Zosyn 3.375gm/ 100 ml (Pmx)) 100 ml @ 200 mls /hr Q6 IVPB Last administered on 12/11/16 11:49; Admin Dose 200 MLS/HR; Start 12/10/16 at 18:00 Acetaminophen/ Hydrocodone Bitart ([place] (5/325)) 1 tab Q4H PRN PO BREAKTHROUGH PAIN; Start 12/10/16 at 21:00 Alprazolam (Xanax) 1 mg Q8 PO Last administered on 12/11/16 07:03; Admin Dose 1 MG; Start 12/10/16 at 22:00 Hydromorphone HCl 1 mg 1 mg Q4H PRN IV SEVERE PAIN LEVEL 7-10 Last administered on 12/11/16 12:54; Admin Dose 1 MG; Start 12/11/16 at 13:00 Dextrose/Sodium Chloride (D5-1/2ns) 1,000 ml @ 80 mls/hr [id number] IV Last administered on 12/11/16 14:09; Admin Dose 80 MLS/HR; Start 12/11/16 at 14:30 CORWIN WILKINS Dec 11, 2016 14:31
[2016-12-11 14:41] VITALS: BP 139/63; RESP 18
[2016-12-11 20:00] VITALS: BP 160/73; RESP 20
--- NOTE | 2016-12-11 20:16 | CONS ---
Date/Time of Note Date/Time of Note DATE: 12/11/16 TIME: 14:10 Assessment/Plan Assessment/Plan Additional Assessment/Plan [facility] SUBSEQUENT INPATIENT CONSULTATION NOTE PLACE OF SERVICE: [facility], [address] DATE OF ADMISSION: 12/10/2016 DATE OF CONSULTATION: 12/11/2016 ASSESSMENT AND PLAN: A very pleasant 31-year-old gentleman, well known to me since August 2012 with a very complex past medical and surgical history, who was admitted through the emergency department to [facility] on 12/10 with what appears to be abdominal pain more consistent with possible infectious etiology such as viral gastroenteritis and not so much related to bowel obstruction or pancreatitis. He has had similar issues in the past. There may have been exposure to ill family members as well. No indication for acute surgical intervention. Patient has lost quite a bit of weight over the last few months as seen by reduction of his BMI and his appearance. We may need to do further studies with guidance from our gastroenterology colleagues regarding possible etiology. I've explained all of this to the patient and his mother and answered all of their questions to the best my ability. Patient and family appear to understand and agreed with the plans. With above assessment, I've recommend the followin. Continue current management 2. Pain control will be an issue since the patient is pain intolerant and has been exposed to pain medications in the past 3. If need be, the patient may have an MRI or MRCP for further imaging. No need for today. 4. Advisable to involve gastroenterology early 5. Patient may have a liquid diet from my standpoint Thank you very much for having me involved in the care of this very pleasant young gentleman and his wonderful family. I will be available to answer any questions at area [phone]. Nature of presenting problem: Moderate risk Complexity of decision making: Moderate to high complexity Updated Clinical Summary: The patient is a very pleasant 28-year-old young man, very well known to me and my service over the course of the last 2.5 years for treatment of chronic pancreatitis that involved several operative interventions including a distal pancreatectomy and splenectomy followed by a distal pancreatic jejunostomy. Initially the patient was suffering from chronic pancreatitis due to alcoholism that he started when he was a young 14-year-old. 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 After this, he had a 6 year period where he was in and out of the hospital every few weeks and multiple diagnostic tests and interventions were done until we had a chance to see him, and over the course of the next year and a half to 2 years, managed to get his chronic pancreatitis issues settled with above operative interventions. In 2015 and 2016, patient started having more visits through the ED and being hospitalized with reported resumption of ETOH. Admitted July 2016 for abdominal pain symptoms. Readmitted to [facility] 12/10/2016 for abdominal pain symptoms and nausea, vomiting and diarrhea. Comorbidities: 1. History of chronic pancreatitis, due to prior alcoholism, status post major pancreatitis at age 20 and then 6 years of chronic pain, multiple interventions , until he underwent the above named operations. 2. History of pain medication addiction and pain intolerance. 3. History of malnutrition, although the patient has been putting on more weight in the last number of months and does not seem to be suffering from this any longer. 4. History of anxiety. 5. 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 6. History of depression 7. Cholecystectomy, splenectomy and distal pancreatectomy. 8. Distal pancreatic jejunostomy. HISTORY OF PRESENT ILLNESS: Patient was admitted through the emergency department to [facility] 12/10/2016 with abdominal pain associated with nausea, vomiting, and diarrhea. No fevers and chills, no other change in bowel or bladder habits, no other major symptom. Possible exposure to ill family member. Patient reports no drinking. ALLERGIES: REPORTEDLY MORPHINE WITH UNKNOWN REACTION MEDICATIONS See below and EHR summary. SOCIAL HISTORY: The patient lives with his family. He has used alcohol in the past, had been sober for the a few years with resumption of ETOH as of a few months ago. There has been no history of known smoking or intravenous drug use. He also has been treated with a pain specialist clinic as an outpatient as well. FAMILY HISTORY: There are no significant medical, surgical or oncologic issues in the family as reported by the patient or reflected in the chart. REVIEW OF SYSTEMS: No pertinent +'s or -'s in a complete 14-point review of systems. PHYSICAL EXAMINATION GENERAL: The patient appears to be a very pleasant young gentleman of descent lying in bed, appearing stated age, WD&WN and otherwise in no acute distress. BMI 16.9 (previously 16.3 in 2014 and 25.13 July 2016). Has lost weight compared to previous admission. VITAL SIGNS: AVSS (please also see below) HEENT: Normocephalic and atraumatic. Extraocular muscles and hearing are grossly intact bilaterally and symmetrically. Sclerae are nonicteric. Oral cavity is clear; oral mucosa appear to be pink and moist. Dentition: fair. NECK: Supple. There is no lymphadenopathy or JVD. There is no submental, submandibular or supraclavicular lymphadenopathy. CHEST: Rises symmetrically with each breath; patient is breathing comfortably. There are no audible wheezes, rales or rhonchi on the gross exam. HEART: Pulse is regular and palpable on the right wrist. Capillary refill is normal. Carotid pulses are palpable bilaterally and symmetrically in the neck. EXTREMITIES: Lower extremities contain no pitting edema around the ankles bilaterally and symmetrically. ABDOMEN: Abdomen is soft, for the most part nontender and nondistended. No evidence of ascites, organomegaly, caput medusae, engorged subcutaneous veins, or other abnormalities. There are no peritoneal signs or guarding. SKIN: Appears to be pink and feels warm to touch. NEUROLOGIC: Awake, alert, and follows commands appropriately. LABORATORY DATA: See below IMAGING: See electronic chart. Please note that I've personally reviewed all pertinent available images and I agree in general with their overall reported findings. Consultation Date/Type/Reason Admit Date/Time Past Surgical History Past Surgical Hx: bowel resection, cholecystectomy, other Social History Smoking Status: Never smoker Exam/Review of Systems Vital Signs Vitals Vital Signs Date Time Temp Pulse Resp B/P Pulse Ox O2 Delivery O2 Flow Rate FiO2 12/11/16 14:41 98.1 55 18 139/63 98 12/10/16 18:26 Room Air Intake and Output 12/10/16 12/10/16 12/11/16 15:00 23:00 07:00 Intake Total 820 ml Output Total 300 ml Balance 520 ml Results Result Diagram: 12/11/16 1050 12/11/16 1050 Results 24 hrs Laboratory Tests Test 12/11/16 10:50 White Blood Count 7.2 # Red Blood Count 3.88 L Hemoglobin 12.7 L Hematocrit 36.7 L Mean Corpuscular Volume 94.6 Mean Corpuscular Hemoglobin 32.7 Mean Corpuscular Hemoglobin Concent 34.6 Red Cell Distribution Width 14.0 Platelet Count 314 Mean Platelet Volume 9.7 Neutrophils % 54.1 Lymphocytes % 29.8 Monocytes % 13.8 H Eosinophils % 1.5 Basophils % 0.7 Nucleated Red Blood Cells % 0.0 Neutrophils # 3.9 Lymphocytes # 2.2 Monocytes # 1.0 H Eosinophils # 0.1 Basophils # 0.1 Nucleated Red Blood Cells # 0.0 Sodium Level 143 Potassium Level 4.0 Chloride Level 106 Carbon Dioxide Level 26 Anion Gap 15 Blood Urea Nitrogen 9 Creatinine 0.67 Glucose Level 60 #L Calcium Level 8.3 L Medications Medications Current Medications Ondansetron HCl (Zofran Inj) 4 mg Q6H PRN IV NAUSEA AND/OR VOMITING Last administered on 12/11/16 16:46; Admin Dose 4 MG; Start 12/10/16 at 17:00 Famotidine 20 mg 20 mg Q12 IV Last administered on 12/11/16 08:54; Admin Dose 20 MG; Start 12/10/16 at 21:00 Piperacillin Sod/ Tazobactam Sod (Zosyn 3.375gm/ 100 ml (Pmx)) 100 ml @ 200 mls /hr Q6 IVPB Last administered on 12/11/16 19:00; Admin Dose 200 MLS/HR; Start 12/10/16 at 18:00 Acetaminophen/ Hydrocodone Bitart ([place] (5/325)) 1 tab Q4H PRN PO BREAKTHROUGH PAIN; Start 12/10/16 at 21:00 Alprazolam (Xanax) 1 mg Q8 PO Last administered on 12/11/16 15:04; Admin Dose 1 MG; Start 12/10/16 at 22:00 Hydromorphone HCl 1 mg 1 mg Q4H PRN IV SEVERE PAIN LEVEL 7-10 Last administered on 12/11/16 16:46; Admin Dose 1 MG; Start 12/11/16 at 13:00 Dextrose/Sodium Chloride (D5-1/2ns) 1,000 ml @ 80 mls/hr [id number] IV Last administered on 12/11/16 14:09; Admin Dose 80 MLS/HR; Start 12/11/16 at 14:30 NILS JO M.D. Dec 11, 2016 20:16
[2016-12-11] MEDS ORDERED: CIPROFLOXACIN 500 MG TAB PO SCH (20:30)
[2016-12-11] MEDS: CIPROFLOXACIN 400MG/D5W 200 ML IVPB SCH (21:05)
[2016-12-11] MEDS: metroNIDAZOLE 500 MG/NS (PMX) 100 ML IVPB SCH (22:06)
[2016-12-11 23:35] VITALS: BP 149/90; PULSE 50
[2016-12-12] MEDS: HYDROmorphONE 1 MG/ML SYG IV PRN ×6 (01:03→21:14)
[2016-12-12 02:00] VITALS: BP 124/75; RESP 20
[2016-12-12] MEDS: DEXTROSE 5%-0.45% NACL 1,000 ML IV SCH ×2 (05:13→15:30)
[2016-12-12] MEDS: metroNIDAZOLE 500 MG/NS (PMX) 100 ML IVPB SCH ×3 (05:13→21:14)
[2016-12-12] MEDS: ALPRAZOLAM 0.5 MG TAB PO SCH (05:52)
[2016-12-12] MEDS: ONDANSETRON 4 MG INJ IV PRN ×2 (05:58→13:06)
[2016-12-12 06:25] LABS: BASOPHIL # 0.1 10^3/ul (0.0-0.1); BASOPHILS % 0.6 % (0.0-2.0); EOSINOPHILS # 0.2 10^3/ul (0.0-0.5); EOSINOPHILS % 2.3 % (0.0-7.0); HEMATOCRIT 38.1 % (42.0-52.0); HEMOGLOBIN 13.1 g/dl (14.0-18.0); LYMPHOCYTES # 2.4 10^3/ul (0.8-2.9); MEAN CORPUSCULAR HEMOGLOBIN 32.3 pg (29.0-33.0); MEAN CORPUSCULAR HGB CONC 34.4 g/dl (32.0-37.0); MEAN CORPUSCULAR VOLUME 93.8 fl (82.0-101.0); MEAN PLATELET VOLUME 10.1 fl (7.4-10.4); MONOCYTE # 1.3 10^3/ul (0.3-0.9); MONOCYTES % 15.4 % (0.0-11.0); NEUTROPHIL # 4.3 10^3/ul (1.6-7.5); NEUTROPHILS % 52.5 % (39.0-77.0); PLATELET COUNT 328 10^3/UL (140-415); RED BLOOD COUNT 4.06 10^6/ul (4.70-6.10); RED CELL DISTRIBUTION WIDTH 13.8 % (11.5-14.5); WHITE BLOOD COUNT 8.2 10^3/ul (4.8-10.8)
[2016-12-12 06:47] LABS: CALCIUM 8.3 mg/dl (8.4-10.2); CREATININE 0.68 mg/dl (0.61-1.24); MAGNESIUM 1.4 mg/dl (1.7-2.5); PHOSPHORUS 3.1 mg/dl (2.5-4.9); POTASSIUM 3.4 mmol/L (3.5-5.1)
[2016-12-12 08:21] VITALS: BP 121/83; RESP 18
[2016-12-12] MEDS: CIPROFLOXACIN 400MG/D5W 200 ML IVPB SCH ×2 (09:08→19:59)
[2016-12-12] MEDS: FAMOTIDINE 20 MG INJ IV SCH ×2 (09:09→19:56)
[2016-12-12] MEDS ORDERED: POTASSIUM CHLORIDE 20 MEQ POWDER FOR ORAL SOLN PO ONE (11:30)
[2016-12-12] MEDS ORDERED: MAGNESIUM OXIDE 400 MG TAB PO ONE (11:30)
[2016-12-12] MEDS: HYDROCODONE/APAP (5/325) TAB PO PRN ×3 (11:35→20:02)
[2016-12-12] MEDS ORDERED: MAGNESIUM SULFATE 1 GM/D5W 100 ML IVPB ONE (13:00)
--- NOTE | 2016-12-12 13:20 | PN ---
Date/Time of Note Date/Time of Note DATE: 12/12/16 TIME: 13:17 Assessment/Plan VTE Prophylaxis VTE Prophylaxis Intervention: ambulation, SCD's Lines/Catheters IV Catheter Type (from Nrsg): Peripheral IV Assessment/Plan Chief Complaint/Hosp Course Patient is a 31-year-old male with past medical history of chronic abdominal pain and chronic pancreatitis status post multiple abdominal surgeries who presents to [facility] for 3 week onset of nausea vomiting and abdominal pain Assessment and problem list Abdominal pain Nausea Vomiting Chronic pancreatitis Alcohol abuse, stable Leukocytosis Mild hypokalemia Plan -Consulted general surgery, Dr. Torres, SHAREE no acute disease, will order CT if acute change in pain. Dr. Torres does not feel any intervention needs to be done at this time. Recommended GI consult. Patient sees Dr. Menjivar outpatient. call made to Dr. Menjivar's office and consult placed. pending call back. -IV hydration and clears if tolerating -cipro/flagyl for non-specific abdominal pain, possible enteritis, likely viral , but given patient's abdominal hx will keep on abx for now, white count normalized. monitor for now -As needed pain medication, very pain tolerant. Dr. Fields consulted for palliative. -As needed electrolyte replacement Corwin Chowdary DO Problems: Subjective 24 Hr Interval Summary Free Text/Dictation still has nausea Exam/Review of Systems Vital Signs Vitals Vital Signs Date Time Temp Pulse Resp B/P Pulse Ox O2 Delivery O2 Flow Rate FiO2 12/12/16 08:21 97.9 51 18 121/83 100 12/10/16 18:26 Room Air Intake and Output 12/11/16 12/11/16 12/12/16 15:00 23:00 07:00 Intake Total 700 ml 1140 ml 1510 ml Output Total 1100 ml Balance 700 ml 1140 ml 410 ml Exam Physical exam General: Patient is laying in bed and answers questions appropriately Mentation: Patient is alert and oriented 4, Head: Normocephalic atraumatic Eyes: EOMI, pupils reactive to light Neck: Supple, nontender, midline Respiratory: Clear to auscultation bilaterally Cardiovascular: regular rate, no obvious murmurs Gastrointestinal: mild tenderness to palpation. no guarding. Neurological: Moves all extremities spontaneously Skin: No new skin lesions Results Result Diagram: 12/12/16 0544 12/12/16 0545 Results 24 hrs Laboratory Tests Test 12/12/16 05:44 12/12/16 05:45 White Blood Count 8.2 Red Blood Count 4.06 L Hemoglobin 13.1 L Hematocrit 38.1 L Mean Corpuscular Volume 93.8 Mean Corpuscular Hemoglobin 32.3 Mean Corpuscular Hemoglobin Concent 34.4 Red Cell Distribution Width 13.8 Platelet Count 328 Mean Platelet Volume 10.1 Neutrophils % 52.5 Lymphocytes % 29.0 Monocytes % 15.4 H Eosinophils % 2.3 Basophils % 0.6 Nucleated Red Blood Cells % 0.0 Neutrophils # 4.3 Lymphocytes # 2.4 Monocytes # 1.3 H Eosinophils # 0.2 Basophils # 0.1 Nucleated Red Blood Cells # 0.0 Sodium Level 137 Potassium Level 3.4 L Chloride Level 102 Carbon Dioxide Level 28 Anion Gap 10 # Blood Urea Nitrogen 8 Creatinine 0.68 Glucose Level 111 # Calcium Level 8.3 L Phosphorus Level 3.1 Magnesium Level 1.4 L Medications Medications Current Medications Ondansetron HCl (Zofran Inj) 4 mg Q6H PRN IV NAUSEA AND/OR VOMITING Last administered on 12/12/16 13:06; Admin Dose 4 MG; Start 12/10/16 at 17:00 Famotidine (Pepcid Iv) 20 mg Q12 IV Last administered on 12/12/16 09:09; Admin Dose 20 MG; Start 12/10/16 at 21:00 Acetaminophen/ Hydrocodone Bitart ([place] (5/325)) 1 tab Q4H PRN PO BREAKTHROUGH PAIN Last administered on 12/12/16 11:35; Admin Dose 1 TAB; Start 12/10/16 at 21:00 Hydromorphone HCl 1 mg 1 mg Q4H PRN IV SEVERE PAIN LEVEL 7-10 Last administered on 12/12/16 13:06; Admin Dose 1 MG; Start 12/11/16 at 13:00 Dextrose/Sodium Chloride 1,000 ml @ 80 mls/hr [id number] IV Last administered on 12/12/16 05:13; Admin Dose 80 MLS/HR; Start 12/11/16 at 14:30 Metronidazole 100 ml @ 100 mls/hr Q8 IVPB Last administered on 12/12/16 05:13 ; Admin Dose 100 MLS/HR; Start 12/11/16 at 22:00 Ciprofloxacin/ Dextrose (Cipro Ivpb) 200 ml @ 200 mls/hr Q12 IVPB Last administered on 12/12/16 09:08; Admin Dose 200 MLS/HR; Start 12/11/16 at 21:00 Alprazolam 1 mg 1 mg Q8 PRN PO anxiety; Start 12/12/16 at 11:30 Potassium Chloride 250 ml @ 62.5 mls/hr ONCE ONCE IVPB ; Start 12/12/16 at 14: 00; Stop 12/12/16 at 17:59 Magnesium Sulfate/ Dextrose (Magnesium Sulfate 1 Gm/D5W) 100 ml @ 100 mls/hr ONCE ONCE IVPB Last administered on 12/12/16 12:39; Admin Dose 100 MLS/HR; Start 12/12/16 at 13:00; Stop 12/12/16 at 13:59 CORWIN CHOWDARY Dec 12, 2016 13:20
[2016-12-12] MEDS ORDERED: POTASSIUM CHLORIDE 250 ML IVPB ONE (14:00)
[2016-12-12 14:41] VITALS: BP 143/86; RESP 18
[2016-12-12] MEDS: ALPRAZOLAM 0.5 MG TAB PO PRN (15:05)
--- NOTE | 2016-12-12 16:57 | PN ---
Date/Time of Note Date/Time of Note DATE: 12/12/16 TIME: 16:56 Assessment/Plan Lines/Catheters IV Catheter Type (from Nrs): Peripheral IV Assessment/Plan Assessment/Plan [facility] Progress Note Date of Service: 12/12/2016 Place of service: [facility] second floor [place] Today's Assessment & Plan: Overall stable. Given recent weight loss, would be important to do a workup to see if there are any new issues or exacerbation of old issues. No indication for acute surgical intervention. Discussed with patient and mother and answered all questions. They appeared to understand and agreed with plans. With above assessment, I've recommend the followin. Continue current management 2. MRI pancreas protocol with MRCP for further imaging. 4. GI consultation with possible consideration for upper endoscopy 5. Continue advancing diet Thank you very much for having me involved in the care of this very pleasant young gentleman and his wonderful family. I will be available to answer any questions at area [phone]. Nature of presenting problem: Moderate risk Complexity of decision making: Moderate to high complexity Updated Clinical Summary: The patient is a very pleasant 28-year-old young man, very well known to me and my service over the course of the last 2.5 years for treatment of chronic pancreatitis that involved several operative interventions including a distal pancreatectomy and splenectomy followed by a distal pancreatic jejunostomy. Initially the patient was suffering from chronic pancreatitis due to alcoholism that he started when he was a young 14-year-old. 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 After this, he had a 6 year period where he was in and out of the hospital every few weeks and multiple diagnostic tests and interventions were done until we had a chance to see him, and over the course of the next year and a half to 2 years, managed to get his chronic pancreatitis issues settled with above operative interventions. In 2015 and 2016, patient started having more visits through the ED and being hospitalized with reported resumption of ETOH. Admitted July 2016 for abdominal pain symptoms. Readmitted to [facility] 12/10/2016 for abdominal pain symptoms and nausea, vomiting and diarrhea. Comorbidities: 1. History of chronic pancreatitis, due to prior alcoholism, status post major pancreatitis at age 20 and then 6 years of chronic pain, multiple interventions , until he underwent the above named operations. 2. History of pain medication addiction and pain intolerance. 3. History of malnutrition, although the patient has been putting on more weight in the last number of months and does not seem to be suffering from this any longer. 4. History of anxiety. 5. 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 6. History of depression 7. Cholecystectomy, splenectomy and distal pancreatectomy. 8. Distal pancreatic jejunostomy. Subjective: No major events or complaints; no new or major increase in abd pain and under semi-adequate control with medications; no n/v/d; no sob or cp; + flatus; + BM; + activity Objective: Vitals: See below I's & O's: See below Exam: GENERAL: On exam, the patient was lying in bed and appeared to be comfortable and in no acute distress. ABDOMEN: Soft, nontender and nondistended. Incisions are clean, dry and intact without any evidence of erythema, edema, discharge, or hernia. There are no peritoneal signs or guarding. SKIN: Skin appears to be pink and feels warm to touch. NEUROLOGIC: Patient is awake, alert, and follows commands appropriately. Labs: See below Exam/Review of Systems Vital Signs Vitals Vital Signs Date Time Temp Pulse Resp B/P Pulse Ox O2 Delivery O2 Flow Rate FiO2 12/12/16 14:41 98.4 69 18 143/86 99 12/10/16 18:26 Room Air Intake and Output 12/11/16 12/11/16 12/12/16 15:00 23:00 07:00 Intake Total 700 ml 1140 ml 1510 ml Output Total 1100 ml Balance 700 ml 1140 ml 410 ml Results Result Diagram: 12/12/16 0544 12/12/16 0545 NILS JO M.D. Dec 12, 2016 16:57
[2016-12-12 21:50] VITALS: BP 97/55; RESP 18
[2016-12-13] MEDS: HYDROmorphONE 1 MG/ML SYG IV PRN ×8 (01:19→23:54)
[2016-12-13] MEDS: ALPRAZOLAM 0.5 MG TAB PO PRN ×3 (01:19→21:00)
[2016-12-13] MEDS: HYDROCODONE/APAP (5/325) TAB PO PRN (02:24)
[2016-12-13 02:35] VITALS: BP 142/91; RESP 18
[2016-12-13] MEDS: DEXTROSE 5%-0.45% NACL 1,000 ML IV SCH ×2 (04:00→05:18)
[2016-12-13] MEDS: ONDANSETRON 4 MG INJ IV PRN ×2 (05:21→21:00)
[2016-12-13] MEDS: metroNIDAZOLE 500 MG/NS (PMX) 100 ML IVPB SCH ×3 (05:37→22:21)
[2016-12-13 06:00] LABS: CALCIUM 8.6 mg/dl (8.4-10.2); CREATININE 0.72 mg/dl (0.61-1.24); MAGNESIUM 1.6 mg/dl (1.7-2.5); PHOSPHORUS 3.1 mg/dl (2.5-4.9)
--- NOTE | 2016-12-13 07:22 | CONS ---
Date/Time of Note Date/Time of Note DATE: 12/13/16 TIME: 07:14 Assessment/Plan Assessment/Plan Additional Assessment/Plan Recurrent pancreatitis Status post partial pancreatectomy Pain secondary to the above Typical pain secondary to pancreatitis, and location and severity Past medical history of alcohol consumption last drink July 2016 Tolerance to opioid pain medications For now we will change him to his usual regimen of Dilaudid 1 mg every 3 hours which I do not think is a large dose for the amount of [place] he was taking at home. Discontinue [place] during this time while he is taking only liquids will follow closely. Consultation Date/Type/Reason Admit Date/Time Date of Consultation: Dec 13, 2016 Type of Consultation: Pain management Hx of Present Illness 31-year-old male with multiple hospitalizations for recurrent pancreatitis. This episode began approximately 2 week prior to his presentation states is associated with nausea and vomiting located in the same spot to his left lower quadrant with radiations to his back. Describes as a gnawing type of discomfort with peaks and trough with the loose stools. Patient states his pain is rated 10/10 before he came in since she has been treated during his hospitalization he has responded well to a milligram of Dilaudid every 4 hours but states that his usual doses every 3 hours. He has not taken the [place] that was ordered his pain after treatment with morphine decreases to approximately 3/ 10. The pain affects his physical functioning mood sleeping patterns overall for function. Patient states he was taking up to 8 [place] at home daily prior to presented to the emergency room. There is no past medical history of drug abuse he states he does smoke marijuana on occasion peer states he has not drank alcohol since July of this year. He does not appear to be overly medicated since here is not requested frequent renewals of his medication early dosing. He has never been in a drug treatment program. He is not insisting on any other medications for pain management except his usual regimen he has not have any side effects associated with his current regimen. Assessment and problem list Abdominal pain Nausea Vomiting Chronic pancreatitis Alcohol abuse, stable Leukocytosis Mild hypokalemia Plan Eyes: No discharge, No no complaints, No other, No pain, No redness, No visual change Respiratory: No cough, No no complaints, No other, No pain, No pleuritic pain, No shortness of breath, No sputum, No wheezing Cardiovascular: No chest pain, No edema, No lightheadedness, No no complaints, No orthopenea, No other, No palpitations, No paroxysmal nocturnal dyspnea Genitourinary: No bleeding, No discharge, No dysuria, No flank pain, No hematuria, No no complaints, No other Neurologic: No confusion, No dizziness, No focal-weakness, No headache, No no complaints, No other, No seizure, No syncope Past Surgical History Past Surgical Hx: bowel resection, cholecystectomy, other Social History Smoking Status: Never smoker Exam/Review of Systems Vital Signs Vitals Vital Signs Date Time Temp Pulse Resp B/P Pulse Ox O2 Delivery O2 Flow Rate FiO2 12/13/16 02:35 97.3 52 18 142/91 100 12/10/16 18:26 Room Air Intake and Output 12/12/16 12/12/16 12/13/16 15:00 23:00 07:00 Intake Total 400 ml 890 ml 680 ml Output Total 900 ml 1100 ml Balance 400 ml -10 ml -420 ml Exam Constitutional: distress Psych: No anxiety, No confusion, No depression, No nl mood/affect, No no complaints, No other, No suicidal Head: No atraumatic, No hematomas, No lacerations, No normocephalic, No other Eyes: No EOMI, No PERRL, No fundi, disc, No icteric, No nl conjunctiva, No nl lids, No nl sclera, No other Respiratory: No clear to auscultation, No congested cough, No crackles/rales, No diminished breath sounds, No intercostal retraction, No labored breathing, No normal air movement, No other, No respirations, No tactile fremitus, No wheezing Cardiovascular: No S3, No S4, No bruits, No diastolic murmur, No edema, No gallop, No irregular rhythm, No jugular venous distention (JVD), No murmurs/ extra sounds, No nl pulses, No other, No regular rate and rhythm, No rub, No systolic murmur Gastrointestinal: other (Low active bowel sounds without organomegaly masses without rebound without gross peritoneal signs) Extremities: No calf tenderness, No clubbing, No cyanosis, No edema, No normal pulses, No other, No palpable cord, No pitting pedal edema, No tenderness Neurological: No JEWELRY MODEL MAKER II-XII intact, No DTR's symmetric, No confused, No focal weakness, No lethargic, No nl mental status, No nl speech, No nl strength, No numbness, No other, No reflexes, No unresponsive Results Result Diagram: 12/12/16 0544 12/13/16 0505 Results 24 hrs Laboratory Tests Test 12/13/16 05:05 Sodium Level 145 H Potassium Level 4.0 Chloride Level 105 Carbon Dioxide Level 27 Anion Gap 17 #H Blood Urea Nitrogen 3 L Creatinine 0.72 Glucose Level 99 Calcium Level 8.6 Phosphorus Level 3.1 Magnesium Level 1.6 L Medications Medications Current Medications Ondansetron HCl (Zofran Inj) 4 mg Q6H PRN IV NAUSEA AND/OR VOMITING Last administered on 12/13/16 05:21; Admin Dose 4 MG; Start 12/10/16 at 17:00 Famotidine (Pepcid Iv) 20 mg Q12 IV Last administered on 12/12/16 19:56; Admin Dose 20 MG; Start 12/10/16 at 21:00 Acetaminophen/ Hydrocodone Bitart ([place] (5/325)) 1 tab Q4H PRN PO BREAKTHROUGH PAIN Last administered on 12/13/16 02:24; Admin Dose 1 TAB; Start 12/10/16 at 21:00 Hydromorphone HCl 1 mg 1 mg Q4H PRN IV SEVERE PAIN LEVEL 7-10 Last administered on 12/13/16 05:20; Admin Dose 1 MG; Start 12/11/16 at 13:00 Dextrose/Sodium Chloride 1,000 ml @ 80 mls/hr [id number] IV Last administered on 12/13/16 05:18; Admin Dose 80 MLS/HR; Start 12/11/16 at 14:30 Metronidazole 100 ml @ 100 mls/hr Q8 IVPB Last administered on 12/13/16 05:37 ; Admin Dose 100 MLS/HR; Start 12/11/16 at 22:00 Ciprofloxacin/ Dextrose (Cipro Ivpb) 200 ml @ 200 mls/hr Q12 IVPB Last administered on 12/12/16 19:59; Admin Dose 200 MLS/HR; Start 12/11/16 at 21:00 Alprazolam (Xanax) 1 mg Q8 PRN PO anxiety Last administered on 12/13/16 01:19; Admin Dose 1 MG; Start 12/12/16 at 11:30 ANA XAVIER Dec 13, 2016 07:22
[2016-12-13] MEDS: FAMOTIDINE 20 MG INJ IV SCH ×2 (08:21→20:59)
[2016-12-13] MEDS: CIPROFLOXACIN 400MG/D5W 200 ML IVPB SCH ×2 (08:22→20:59)
[2016-12-13 08:26] VITALS: BP 149/93; RESP 18
[2016-12-13] MEDS ORDERED: MAGNESIUM SULFATE 2 GM/50 ML 50 ML IVPB ONE (14:30)
[2016-12-13 14:37] VITALS: BP 133/89; RESP 18
--- NOTE | 2016-12-13 16:35 | PN ---
Date/Time of Note Date/Time of Note DATE: 12/13/16 TIME: 16:33 Assessment/Plan VTE Prophylaxis VTE Prophylaxis Intervention: SCD's Lines/Catheters IV Catheter Type (from Nrsg): Peripheral IV Assessment/Plan Assessment/Plan Abdominal pain, acute on chronic Nausea Vomiting Chronic pancreatitis Alcohol abuse, stable Leukocytosis Mild hypokalemia Plan -Consulted general surgery, Dr. Torres, SHAREE no acute disease, will order CT if acute change in pain. Dr. Torres does not feel any intervention needs to be done at this time. Recommended GI consult. Patient sees Dr. Menjivar outpatient. call made to Dr. Menjivar's office and consult placed. pending call back. -IV hydration and clears if tolerating -cipro/flagyl for non-specific abdominal pain, possible enteritis, likely viral , but given patient's abdominal hx will keep on abx for now, white count normalized. monitor for now -As needed pain medication, very pain tolerant. Dr. Fields consulted for palliative. -As needed electrolyte replacemen Subjective 24 Hr Interval Summary Free Text/Dictation doing ok, pain controlled, Awaiting GI consult Exam/Review of Systems Vital Signs Vitals Vital Signs Date Time Temp Pulse Resp B/P Pulse Ox O2 Delivery O2 Flow Rate FiO2 12/13/16 14:37 98.5 69 18 133/89 99 12/10/16 18:26 Room Air Intake and Output 12/12/16 12/12/16 12/13/16 15:00 23:00 07:00 Intake Total 400 ml 890 ml 780 ml Output Total 900 ml 1100 ml Balance 400 ml -10 ml -320 ml Results Result Diagram: 12/12/16 0544 12/13/16 0505 Results 24 hrs Laboratory Tests Test 12/13/16 05:05 Sodium Level 145 H Potassium Level 4.0 Chloride Level 105 Carbon Dioxide Level 27 Anion Gap 17 #H Blood Urea Nitrogen 3 L Creatinine 0.72 Glucose Level 99 Calcium Level 8.6 Phosphorus Level 3.1 Magnesium Level 1.6 L Medications Medications Current Medications Ondansetron HCl (Zofran Inj) 4 mg Q6H PRN IV NAUSEA AND/OR VOMITING Last administered on 12/13/16 05:21; Admin Dose 4 MG; Start 12/10/16 at 17:00 Famotidine 20 mg 20 mg Q12 IV Last administered on 12/13/16 08:21; Admin Dose 20 MG; Start 12/10/16 at 21:00 Dextrose/Sodium Chloride 1,000 ml @ 80 mls/hr [id number] IV Last administered on 12/13/16 05:18; Admin Dose 80 MLS/HR; Start 12/11/16 at 14:30 Metronidazole 100 ml @ 100 mls/hr Q8 IVPB Last administered on 12/13/16 15:19 ; Admin Dose 100 MLS/HR; Start 12/11/16 at 22:00 Ciprofloxacin/ Dextrose (Cipro Ivpb) 200 ml @ 200 mls/hr Q12 IVPB Last administered on 12/13/16 08:22; Admin Dose 200 MLS/HR; Start 12/11/16 at 21:00 Alprazolam (Xanax) 1 mg Q8 PRN PO anxiety Last administered on 12/13/16 09:57; Admin Dose 1 MG; Start 12/12/16 at 11:30 Hydromorphone HCl (Dilaudid) 1 mg Q3 PRN IV SEVERE PAIN LEVEL 7-10 Last administered on 12/13/16 14:35; Admin Dose 1 MG; Start 12/13/16 at 09:00 JAMES KELLEY MD Dec 13, 2016 16:35
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
--- NOTE | 2016-12-13 20:00 | PN ---
Date/Time of Note Date/Time of Note DATE: 12/13/16 TIME: 19:59 Assessment/Plan Lines/Catheters IV Catheter Type (from Nrs): Peripheral IV Assessment/Plan Assessment/Plan [facility] Progress Note Date of Service: 12/13/2016 Place of service: [facility] second floor [place] Today's Assessment & Plan: Overall stable. Awaiting MRCP and EGD results. No indication for acute surgical intervention. Discussed with patient and answered all questions. Patient appeared to understand and agreed with plans. Previous assessment that still applies today: Given recent weight loss, would be important to do a workup to see if there are any new issues or exacerbation of old issues. With above assessment, I've recommend the followin. Continue current management 2. MRI pancreas protocol with MRCP for further imaging. 4. Follow-up with GI consultation and upper endoscopy results 5. Continue advancing diet Thank you very much for having me involved in the care of this very pleasant young gentleman and his wonderful family. I will be available to answer any questions at area [phone]. Nature of presenting problem: Moderate risk Complexity of decision making: Moderate to high complexity Updated Clinical Summary: The patient is a very pleasant 28-year-old young man, very well known to me and my service over the course of the last 2.5 years for treatment of chronic pancreatitis that involved several operative interventions including a distal pancreatectomy and splenectomy followed by a distal pancreatic jejunostomy. Initially the patient was suffering from chronic pancreatitis due to alcoholism that he started when he was a young 14-year-old. 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 After this, he had a 6 year period where he was in and out of the hospital every few weeks and multiple diagnostic tests and interventions were done until we had a chance to see him, and over the course of the next year and a half to 2 years, managed to get his chronic pancreatitis issues settled with above operative interventions. In 2015 and 2016, patient started having more visits through the ED and being hospitalized with reported resumption of ETOH. Admitted July 2016 for abdominal pain symptoms. Readmitted to [facility] 12/10/2016 for abdominal pain symptoms and nausea, vomiting and diarrhea. Comorbidities: 1. History of chronic pancreatitis, due to prior alcoholism, status post major pancreatitis at age 20 and then 6 years of chronic pain, multiple interventions , until he underwent the above named operations. 2. History of pain medication addiction and pain intolerance. 3. History of malnutrition, although the patient has been putting on more weight in the last number of months and does not seem to be suffering from this any longer. 4. History of anxiety. 5. 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 6. History of depression 7. Cholecystectomy, splenectomy and distal pancreatectomy. 8. Distal pancreatic jejunostomy. Subjective: No major events or complaints; no new or major increase in abd pain and under semi-adequate control with medications; no n/v/d; no sob or cp; + flatus; + BM; + activity Objective: Vitals: See below I's & O's: See below Exam: GENERAL: On exam, the patient was lying in bed and appeared to be comfortable and in no acute distress. ABDOMEN: Soft, nontender and nondistended. Incisions are clean, dry and intact without any evidence of erythema, edema, discharge, or hernia. There are no peritoneal signs or guarding. SKIN: Skin appears to be pink and feels warm to touch. NEUROLOGIC: Patient is awake, alert, and follows commands appropriately. Labs: See below Exam/Review of Systems Vital Signs Vitals Vital Signs Date Time Temp Pulse Resp B/P Pulse Ox O2 Delivery O2 Flow Rate FiO2 12/13/16 14:37 98.5 69 18 133/89 99 12/10/16 18:26 Room Air Intake and Output 12/12/16 12/12/16 12/13/16 15:00 23:00 07:00 Intake Total 400 ml 890 ml 780 ml Output Total 900 ml 1100 ml Balance 400 ml -10 ml -320 ml Results Result Diagram: 12/12/16 0544 12/13/16 0505 NILS JO M.D. Dec 13, 2016 20:00
[2016-12-13 23:53] VITALS: BP 151/95; RESP 20
[2016-12-14] MEDS: DEXTROSE 5%-0.45% NACL 1,000 ML IV SCH ×3 (02:38→18:39)
[2016-12-14 02:45] VITALS: BP 143/82; RESP 19
[2016-12-14] MEDS: HYDROmorphONE 1 MG/ML SYG IV PRN ×7 (02:59→21:32)
[2016-12-14 05:43] LABS: INR 1.27; PT RATIO 1.3
[2016-12-14 05:44] LABS: PARTIAL THROMBOPLASTIN TIME 35.9 Sec (25.0-35.0)
[2016-12-14 05:48] LABS: BASOPHIL # 0.1 10^3/ul (0.0-0.1); BASOPHILS % 1.1 % (0.0-2.0); EOSINOPHILS # 0.3 10^3/ul (0.0-0.5); EOSINOPHILS % 3.8 % (0.0-7.0); HEMOGLOBIN 12.9 g/dl (14.0-18.0); LYMPHOCYTES # 2.4 10^3/ul (0.8-2.9); LYMPHOCYTES % 33.2 % (15.0-51.0); MEAN CORPUSCULAR HGB CONC 35.8 g/dl (32.0-37.0); MEAN CORPUSCULAR VOLUME 92.1 fl (82.0-101.0); MEAN PLATELET VOLUME 11.4 fl (7.4-10.4); MONOCYTE # 1.3 10^3/ul (0.3-0.9); MONOCYTES % 17.7 % (0.0-11.0); NEUTROPHIL # 3.1 10^3/ul (1.6-7.5); NEUTROPHILS % 44.1 % (39.0-77.0); PLATELET COUNT 225 10^3/UL (140-415); RED BLOOD COUNT 3.91 10^6/ul (4.70-6.10); RED CELL DISTRIBUTION WIDTH 13.6 % (11.5-14.5); WHITE BLOOD COUNT 7.1 10^3/ul (4.8-10.8)
[2016-12-14 05:54] LABS: ANION GAP 15 (8-16); CALCIUM 8.8 mg/dl (8.4-10.2); CARBON DIOXIDE 28 mmol/L (21-31); CHLORIDE 105 mmol/L (97-110); CREATININE 0.67 mg/dl (0.61-1.24); GLUCOSE 97 mg/dl (70-220); POTASSIUM 3.7 mmol/L (3.5-5.1); SODIUM 144 mmol/L (135-144)
[2016-12-14] MEDS: metroNIDAZOLE 500 MG/NS (PMX) 100 ML IVPB SCH ×3 (06:21→22:57)
[2016-12-14] MEDS: ONDANSETRON 4 MG INJ IV PRN ×3 (06:21→18:33)
[2016-12-14 06:26] LABS: BLOOD UREA NITROGEN < 2 mg/dl (7-20)
[2016-12-14 07:59] LABS: MAGNESIUM 1.8 mg/dl (1.7-2.5)
[2016-12-14 08:19] VITALS: BP 137/91; RESP 20
[2016-12-14] MEDS: FAMOTIDINE 20 MG INJ IV SCH ×2 (09:08→19:59)
[2016-12-14] MEDS: CIPROFLOXACIN 400MG/D5W 200 ML IVPB SCH ×2 (09:08→20:00)
[2016-12-14] MEDS: CREON (24K-76K-120K) 1 CAP PO SCH ×3 (09:11→17:55)
[2016-12-14] MEDS: ALPRAZOLAM 0.5 MG TAB PO PRN ×2 (10:20→20:00)
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
[2016-12-14 14:00] VITALS: BP 128/79; RESP 20
--- NOTE | 2016-12-14 15:34 | PN ---
Date/Time of Note Date/Time of Note DATE: 12/14/16 TIME: 15:32 Assessment/Plan Lines/Catheters IV Catheter Type (from [facility]): Peripheral IV Duncan in Place (from [facility]): No Assessment/Plan Assessment/Plan [facility] Progress Note Date of Service: 12/14/2016 Place of service: [facility] 4W Today's Assessment & Plan: Overall stable. Awaiting MRCP and possibly EGD results. No indication for acute surgical intervention. Discussed with patient and answered all questions. Patient appeared to understand and agreed with plans. Previous assessment that still applies today: Given recent weight loss, would be important to do a workup to see if there are any new issues or exacerbation of old issues. With above assessment, I've recommend the followin. Continue current management 2. MRI pancreas protocol with MRCP for further imaging. 4. Follow-up with GI consultation and upper endoscopy results 5. Continue advancing diet Thank you very much for having me involved in the care of this very pleasant young gentleman and his wonderful family. I will be available to answer any questions at area [phone]. Nature of presenting problem: Moderate risk Complexity of decision making: Moderate to high complexity Updated Clinical Summary: The patient is a very pleasant 28-year-old young man, very well known to me and my service over the course of the last 2.5 years for treatment of chronic pancreatitis that involved several operative interventions including a distal pancreatectomy and splenectomy followed by a distal pancreatic jejunostomy. Initially the patient was suffering from chronic pancreatitis due to alcoholism that he started when he was a young 14-year-old. 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 After this, he had a 6 year period where he was in and out of the hospital every few weeks and multiple diagnostic tests and interventions were done until we had a chance to see him, and over the course of the next year and a half to 2 years, managed to get his chronic pancreatitis issues settled with above operative interventions. In 2015 and 2016, patient started having more visits through the ED and being hospitalized with reported resumption of ETOH. Admitted July 2016 for abdominal pain symptoms. Readmitted to [facility] 12/10/2016 for abdominal pain symptoms and nausea, vomiting and diarrhea. Comorbidities: 1. History of chronic pancreatitis, due to prior alcoholism, status post major pancreatitis at age 20 and then 6 years of chronic pain, multiple interventions , until he underwent the above named operations. 2. History of pain medication addiction and pain intolerance. 3. History of malnutrition, although the patient has been putting on more weight in the last number of months and does not seem to be suffering from this any longer. 4. History of anxiety. 5. 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 6. History of depression 7. Cholecystectomy, splenectomy and distal pancreatectomy. 8. Distal pancreatic jejunostomy. Subjective: No major events or complaints; reports feeling better; abd pain is same and under control with medications; no n/v/d; no sob or cp; + flatus; + BM; + activity Objective: Vitals: See below I's & O's: See below Exam: GENERAL: On exam, the patient was lying in bed and appeared to be comfortable and in no acute distress. ABDOMEN: Soft, nontender and nondistended. Incisions are clean, dry and intact without any evidence of erythema, edema, discharge, or hernia. There are no peritoneal signs or guarding. SKIN: Skin appears to be pink and feels warm to touch. NEUROLOGIC: Patient is awake, alert, and follows commands appropriately. Labs: See below Exam/Review of Systems Vital Signs Vitals Vital Signs Date Time Temp Pulse Resp B/P Pulse Ox O2 Delivery O2 Flow Rate FiO2 12/14/16 14:00 98.9 51 20 128/79 97 12/10/16 18:26 Room Air Intake and Output 12/13/16 12/13/16 12/14/16 15:00 23:00 07:00 Intake Total 280 ml 690 ml 1300 ml Output Total 1600 ml 690 ml Balance 280 ml -910 ml 610 ml Results Result Diagram: 12/14/1643912/14/16439 NILS JO M.D. Dec 14, 2016 15:34
--- NOTE | 2016-12-14 16:12 | PN ---
Date/Time of Note Date/Time of Note DATE: 12/14/16 TIME: 16:10 Assessment/Plan VTE Prophylaxis VTE Prophylaxis Intervention: SCD's Lines/Catheters IV Catheter Type (from Nrsg): Peripheral IV Urinary Cath still in place: No Assessment/Plan Assessment/Plan Abdominal pain, acute on chronic Nausea Vomiting Chronic pancreatitis Alcohol abuse, stable Leukocytosis Mild hypokalemia Plan s/p GI consutl by , plan for EGD tomorrow IVF< pain conrol, IV abx S/P G surgery consultation no plan for surgical intervention will follow up Subjective 24 Hr Interval Summary Free Text/Dictation still c/o abodmina pain, nausea, not tolerating po diet well Exam/Review of Systems Vital Signs Vitals Vital Signs Date Time Temp Pulse Resp B/P Pulse Ox O2 Delivery O2 Flow Rate FiO2 12/14/16 14:00 98.9 51 20 128/79 97 12/10/16 18:26 Room Air Intake and Output 12/13/16 12/13/16 12/14/16 15:00 23:00 07:00 Intake Total 280 ml 690 ml 1300 ml Output Total 1600 ml 690 ml Balance 280 ml -910 ml 610 ml Results Result Diagram: 12/14/16 0440 12/14/16 0440 Results 24 hrs Laboratory Tests Test 12/14/16 04:40 White Blood Count 7.1 Red Blood Count 3.91 L Hemoglobin 12.9 L Hematocrit 36.0 L Mean Corpuscular Volume 92.1 Mean Corpuscular Hemoglobin 33.0 Mean Corpuscular Hemoglobin Concent 35.8 Red Cell Distribution Width 13.6 Platelet Count 225 # Mean Platelet Volume 11.4 H Neutrophils % 44.1 Lymphocytes % 33.2 Monocytes % 17.7 H Eosinophils % 3.8 Basophils % 1.1 Nucleated Red Blood Cells % 0.0 Neutrophils # 3.1 Lymphocytes # 2.4 Monocytes # 1.3 H Eosinophils # 0.3 Basophils # 0.1 Nucleated Red Blood Cells # 0.0 Prothrombin Time 16.0 #H Prothrombin Time Ratio 1.3 INR International Normalized Ratio 1.27 Activated Partial Thromboplast Time 35.9 H Sodium Level 144 Potassium Level 3.7 Chloride Level 105 Carbon Dioxide Level 28 Anion Gap 15 Blood Urea Nitrogen < 2 L Creatinine 0.67 Glucose Level 97 Calcium Level 8.8 Magnesium Level 1.8 Lipase 169 Medications Medications Current Medications Ondansetron HCl (Zofran Inj) 4 mg Q6H PRN IV NAUSEA AND/OR VOMITING Last administered on 12/14/16 12:32; Admin Dose 4 MG; Start 12/10/16 at 17:00 Famotidine 20 mg 20 mg Q12 IV Last administered on 12/14/16 09:08; Admin Dose 20 MG; Start 12/10/16 at 21:00 Dextrose/Sodium Chloride 1,000 ml @ 80 mls/hr [id number] IV Last administered on 12/14/16 02:38; Admin Dose 80 MLS/HR; Start 12/11/16 at 14:30 Metronidazole 100 ml @ 100 mls/hr Q8 IVPB Last administered on 12/14/16 13:57 ; Admin Dose 100 MLS/HR; Start 12/11/16 at 22:00 Ciprofloxacin/ Dextrose (Cipro Ivpb) 200 ml @ 200 mls/hr Q12 IVPB Last administered on 12/14/16 09:08; Admin Dose 200 MLS/HR; Start 12/11/16 at 21:00 Alprazolam (Xanax) 1 mg Q8 PRN PO anxiety Last administered on 12/14/16 10:20; Admin Dose 1 MG; Start 12/12/16 at 11:30 Hydromorphone HCl (Dilaudid) 1 mg Q3 PRN IV SEVERE PAIN LEVEL 7-10 Last administered on 12/14/16 15:38; Admin Dose 1 MG; Start 12/13/16 at 09:00 JAMES KELLEY MD Dec 14, 2016 16:11
[2016-12-14 21:28] VITALS: BP 154/91; RESP 20
[2016-12-15] MEDS: HYDROmorphONE 1 MG/ML SYG IV PRN ×7 (00:17→21:13)
[2016-12-15 00:19] VITALS: BP 122/74; PULSE 58; RESP 18
[2016-12-15 05:46] LABS: BASOPHIL # 0.1 10^3/ul (0.0-0.1); EOSINOPHILS # 0.3 10^3/ul (0.0-0.5); EOSINOPHILS % 4.1 % (0.0-7.0); HEMATOCRIT 40.8 % (42.0-52.0); HEMOGLOBIN 14.1 g/dl (14.0-18.0); LYMPHOCYTES % 36.5 % (15.0-51.0); MEAN CORPUSCULAR HEMOGLOBIN 32.3 pg (29.0-33.0); MEAN CORPUSCULAR HGB CONC 34.6 g/dl (32.0-37.0); MEAN CORPUSCULAR VOLUME 93.4 fl (82.0-101.0); MEAN PLATELET VOLUME 12.3 fl (7.4-10.4); MONOCYTE # 1.4 10^3/ul (0.3-0.9); MONOCYTES % 16.3 % (0.0-11.0); NEUTROPHIL # 3.5 10^3/ul (1.6-7.5); POSITIVE DIFF @See below; RED BLOOD COUNT 4.37 10^6/ul (4.70-6.10); RED CELL DISTRIBUTION WIDTH 13.8 % (11.5-14.5); WHITE BLOOD COUNT 8.3 10^3/ul (4.8-10.8)
[2016-12-15] MEDS: DEXTROSE 5%-0.45% NACL 1,000 ML IV SCH ×2 (06:00→09:43)
[2016-12-15 06:08] LABS: INR 1.21; PARTIAL THROMBOPLASTIN TIME 33.5 Sec (25.0-35.0); PROTIME 15.4 Sec (12.2-14.2); PT RATIO 1.2
[2016-12-15] MEDS: ALPRAZOLAM 0.5 MG TAB PO PRN ×2 (06:16→19:12)
[2016-12-15] MEDS: metroNIDAZOLE 500 MG/NS (PMX) 100 ML IVPB SCH ×3 (06:17→21:57)
[2016-12-15 06:18] LABS: ALANINE AMINOTRANSFERASE 42 IU/L (13-69); ALBUMIN 3.6 g/dl (3.3-4.9); ALBUMIN/GLOBULIN RATIO 1.24; ALKALINE PHOSPHATASE 52 IU/L (42-121); ANION GAP 17 (8-16); ASPARTATE AMINO TRANSFERASE 28 IU/L (15-46); BILIRUBIN,INDIRECT 0.3 mg/dl (0-1.1); BILIRUBIN,TOTAL 0.3 mg/dl (0.2-1.3); CARBON DIOXIDE 29 mmol/L (21-31); CHLORIDE 102 mmol/L (97-110); CREATININE 0.73 mg/dl (0.61-1.24); GLUCOSE 98 mg/dl (70-220); POTASSIUM 3.6 mmol/L (3.5-5.1); SODIUM 144 mmol/L (135-144); TOTAL PROTEIN 6.5 g/dl (6.1-8.1)
[2016-12-15 06:22] LABS: PLATELET COUNT 132 10^3/UL (140-415)
[2016-12-15 06:26] LABS: BLOOD UREA NITROGEN < 2 mg/dl (7-20)
[2016-12-15] MEDS: CREON (24K-76K-120K) 1 CAP PO SCH ×3 (07:50→17:15)
[2016-12-15 08:09] VITALS: BP 173/102; RESP 18
--- NOTE | 2016-12-15 09:10 | RADRPT ---
PROCEDURE: MR Abdomen without contrast. CLINICAL INDICATION: Abdominal pain. Pancreatitis. TECHNIQUE: MRI abdomen without contrast was performed on the a high-resolution, high [place] field [facility] scanner. Patient was examined without IV contrast. Images were reviewed on a [employer] PACS workstation. COMPARISON: CT abdomen and pelvis 07/16/2016. CT abdomen and pelvis with contrast 05/23/2013. FINDINGS: MRI Abdomen: The liver is normal in size. There is signal dropout [id number] images in keeping with fatty infi ltration. No liver mass lesion or intrahepatic biliary dilatation is seen. The spleen is surgically absent. The stomach is partially collapsed but grossly unremarkable. The gallbladder is surgicall y absent. The biliary tree is not dilated. No intrahepatic nor extrahepatic biliary dilatation is present. There atrophy of the pancreas. No pancreatic ductal dilatation is noted. No peripancreatic fluid c ollection is identified. Multiple signal void structures are seen in the midline upper abdomen ar ound the pancreatic body suggesting portal venous collaterals. The adrenal glands and kidneys are sy mmetrically normal. There is approximately 1 cm T2 hypointense structure in the upper pole left kidn ey. The aorta is of normal caliber. There is no retroperitoneal lymphadenopathy. The bowel and mes entery, as visualized, are all unremarkable. IMPRESSION: 1. Atrophic pancreas. No pancreatic ductal dilatation. No peripancreatic fluid collection. The ev aluation of mild pancreatitis is very limited due to distorted anatomy and absence of IV contrast. 2. Multiple signal void structures in the midline upper abdomen around the body of the pancreas lik heamlatha representing portal venous collaterals. 3. Status post cholecystectomy and splenectomy. No biliary ductal dilatation. 4. Fatty liver. 5. Stable 1 cm hemorrhagic/proteinaceous cyst in the upper pole left kidney. RPTAT: BB .Baljit Gallego MD, Date Time Electronically viewed and signed by .Baljit Gallego MD, MD on 12/15/2016 09:10 .O/
[2016-12-15] MEDS: FAMOTIDINE 20 MG INJ IV SCH ×2 (09:32→21:18)
[2016-12-15] MEDS: CIPROFLOXACIN 400MG/D5W 200 ML IVPB SCH ×2 (09:32→20:12)
[2016-12-15 11:29] VITALS: BP 149/93; PULSE 59; RESP 18
[2016-12-15] MEDS ORDERED: MIDAZOLAM 1 MG/ML 2 ML INJ ONE (11:29)
[2016-12-15] MEDS ORDERED: FENTAnyl 50 MCG/ML VIAL ONE (11:29)
--- NOTE | 2016-12-15 11:46 | OPPN ---
Date/Time of Note Date/Time of Note DATE: 12/15/16 TIME: 11:45 Operative Report Preoperative Diagnosis Abdominal pain nausea and vomiting Postoperative Diagnosis Acute and chronic gas Operation/Procedure Performed EGD with for bile Transfusion Required: no Specimen: none Specimens 4 biopsies obtained Grafts/Implants: none Complications: no SAMAN CHOWDARY MD Dec 15, 2016 11:46
--- NOTE | 2016-12-15 12:03 | GILP ---
DATE OF PROCEDURE: 12/15/2016 INDICATIONS FOR PROCEDURE: A 31-year-old gentleman undergoing this procedure for persistent nausea, vomiting, and abdominal pain. The purpose is to evaluate the upper GI tract, find out the cause of his symptoms. The risks of the procedure, related complications, and anesthetic risk, alternatives discussed and informed consent was obtained. DESCRIPTION OF PROCEDURE: The patient was brought to the GI lab, sedated by the anesthesiologist. After optimal sedation, scope was passed with much ease in the esophagus, which was grossly within normal limits. The Z-line was at 38 cm, which was regular. Stomach mucosa revealed acute and chronic gastritis. Four biopsies obtained to rule out H pylori infection. Duodenum, 1st and 2nd part were within normal limits. Retroversion done, 3- 4 gastric varicose vein, grade 2 identified. The scope was straightened out and then removed with good patient tolerance. IMPRESSION: 1. Normal esophagus. 2. Normal Z-line at 38 cm. 3. Gastric varicose vein, grade 2, 3-4 identified in the fundal area. 4. Chronic and acute gastritis. 5. Normal duodenal. Ampulla was not identified on EndoView scope. PLAN: At this point is to start the patient on PPI, Reglan as a prokinetic agent and cut down on the narcotics. Thank you, and we will review histopathology. Dictated By: Benton Menjivar MD /frank/caleb /Document#: [id number] CC: Benton Menjivar MD; Primary MD;*EndCC*
[2016-12-15] MEDS ORDERED: hydrALAzine 20 MG INJ ONE (12:28)
[2016-12-15] MEDS ORDERED: FENTAnyl 50 MCG/ML VIAL IV PRN (12:30)
[2016-12-15] MEDS ORDERED: ONDANSETRON 4 MG INJ IV PRN (12:30)
[2016-12-15] MEDS ORDERED: hydrALAzine 20 MG INJ IV ONE (12:30)
[2016-12-15] MEDS ORDERED: LABETALOL HCL 20MG INJ IV PRN (12:30)
[2016-12-15] MEDS ORDERED: SOD CHLORIDE 0.9% 1,000 ML IV ONE (12:30)
[2016-12-15] MEDS ORDERED: PROPOFOL 40 ML ONE (12:33)
--- NOTE | 2016-12-15 16:19 | PN ---
Date/Time of Note Date/Time of Note DATE: 12/15/16 TIME: 16:17 Assessment/Plan VTE Prophylaxis VTE Prophylaxis Intervention: SCD's Lines/Catheters IV Catheter Type (from Nrs): Saline Lock Urinary Cath still in place: No Assessment/Plan Assessment/Plan Abdominal pain, acute on chronic Nausea Vomiting Chronic pancreatitis Alcohol abuse, stable Leukocytosis Mild hypokalemia Plan s/p GI consutl by ,s/p EGD showed acute on chronic gastritis, esophagitis IVF< pain conrol, IV abx S/P G surgery consultation no plan for surgical intervention will follow up Subjective 24 Hr Interval Summary Free Text/Dictation s/p EGD showed gastritis/esophagitis , BP stable, oN IV dilaudid for pain control Exam/Review of Systems Vital Signs Vitals Vital Signs Date Time Temp Pulse Resp B/P Pulse Ox O2 Delivery O2 Flow Rate FiO2 12/15/16 12:25 12/15/16 11:29 98.9 59 18 149/93 99 Intake and Output 12/14/16 12/14/16 12/15/16 15:00 23:00 07:00 Intake Total 300 ml 1116 ml 520 ml Output Total 1300 ml Balance 300 ml 1116 ml -780 ml Results Result Diagram: 12/15/16 0513 12/15/16 0513 Results 24 hrs Laboratory Tests Test 12/15/16 05:13 White Blood Count 8.3 Red Blood Count 4.37 L Hemoglobin 14.1 Hematocrit 40.8 L Mean Corpuscular Volume 93.4 Mean Corpuscular Hemoglobin 32.3 Mean Corpuscular Hemoglobin Concent 34.6 Red Cell Distribution Width 13.8 Platelet Count 132 #L Mean Platelet Volume 12.3 H Neutrophils % 42.0 Lymphocytes % 36.5 Monocytes % 16.3 H Eosinophils % 4.1 Basophils % 1.0 Nucleated Red Blood Cells % 0.0 Neutrophils # 3.5 Lymphocytes # 3.0 H Monocytes # 1.4 H Eosinophils # 0.3 Basophils # 0.1 Nucleated Red Blood Cells # 0.0 Prothrombin Time 15.4 H Prothrombin Time Ratio 1.2 INR International Normalized Ratio 1.21 Activated Partial Thromboplast Time 33.5 Sodium Level 144 Potassium Level 3.6 Chloride Level 102 Carbon Dioxide Level 29 Anion Gap 17 H Blood Urea Nitrogen < 2 L Creatinine 0.73 Glucose Level 98 Calcium Level 9.0 Total Bilirubin 0.3 Direct Bilirubin 0.00 Indirect Bilirubin 0.3 Aspartate Amino Transf (AST/SGOT) 28 Alanine Aminotransferase (ALT/SGPT) 42 Alkaline Phosphatase 52 Total Protein 6.5 Albumin 3.6 Globulin 2.90 Albumin/Globulin Ratio 1.24 Medications Medications Current Medications Ondansetron HCl (Zofran Inj) 4 mg Q6H PRN IV NAUSEA AND/OR VOMITING Last administered on 12/14/16 18:33; Admin Dose 4 MG; Start 12/10/16 at 17:00 Famotidine 20 mg 20 mg Q12 IV Last administered on 12/15/16 09:32; Admin Dose 20 MG; Start 12/10/16 at 21:00 Dextrose/Sodium Chloride 1,000 ml @ 80 mls/hr [id number] IV Last administered on 12/15/16 09:43; Admin Dose 80 MLS/HR; Start 12/11/16 at 14:30 Metronidazole 100 ml @ 100 mls/hr Q8 IVPB Last administered on 12/15/16 06:17 ; Admin Dose 100 MLS/HR; Start 12/11/16 at 22:00 Ciprofloxacin/ Dextrose (Cipro Ivpb) 200 ml @ 200 mls/hr Q12 IVPB Last administered on 12/15/16 09:32; Admin Dose 200 MLS/HR; Start 12/11/16 at 21:00 Alprazolam (Xanax) 1 mg Q8 PRN PO anxiety Last administered on 12/15/16 06:16; Admin Dose 1 MG; Start 12/12/16 at 11:30 Hydromorphone HCl (Dilaudid) 1 mg Q4 PRN IV SEVERE PAIN LEVEL 7-10; Start at 17:00 JAMES KELLEY MD Dec 15, 2016 16:19
--- NOTE | 2016-12-15 19:54 | PN ---
Date/Time of Note Date/Time of Note DATE: 12/15/16 TIME: 19:52 Assessment/Plan Lines/Catheters IV Catheter Type (from Nrsg): Saline Lock Duncan in Place (from Nrsg): No Assessment/Plan Assessment/Plan [facility] Progress Note Date of Service: 12/15/2016 Place of service: [facility] 4W Today's Assessment & Plan: Overall stable. MRCP unrevealing. May still need EGD. No indication for acute surgical intervention. Discussed with patient and answered all questions. Patient appeared to understand and agreed with plans. Note that patient may need more than normal amounts of pain medications given his history. Previous assessment that still applies today: Given recent weight loss, would be important to do a workup to see if there are any new issues or exacerbation of old issues. With above assessment, I've recommend the followin. Continue current management 2. Follow-up with GI consultation and consider upper endoscopy 3. Continue advancing diet Thank you very much for having me involved in the care of this very pleasant young gentleman and his wonderful family. I will be available to answer any questions at [facility] [phone]. Nature of presenting problem: Moderate risk Complexity of decision making: Moderate to high complexity Updated Clinical Summary: The patient is a very pleasant 28-year-old young man, very well known to me and my service over the course of the last 2.5 years for treatment of chronic pancreatitis that involved several operative interventions including a distal pancreatectomy and splenectomy followed by a distal pancreatic jejunostomy. Initially the patient was suffering from chronic pancreatitis due to alcoholism that he started when he was a young 14-year-old. 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 After this, he had a 6 year period where he was in and out of the hospital every few weeks and multiple diagnostic tests and interventions were done until we had a chance to see him, and over the course of the next year and a half to 2 years, managed to get his chronic pancreatitis issues settled with above operative interventions. In 2015 and 2016, patient started having more visits through the ED and being hospitalized with reported resumption of ETOH. Admitted July 2016 for abdominal pain symptoms. Readmitted to [facility] 12/10/2016 for abdominal pain symptoms and nausea, vomiting and diarrhea. Comorbidities: 1. History of chronic pancreatitis, due to prior alcoholism, status post major pancreatitis at age 20 and then 6 years of chronic pain, multiple interventions , until he underwent the above named operations. 2. History of pain medication addiction and pain intolerance. 3. History of malnutrition, although the patient has been putting on more weight in the last number of months and does not seem to be suffering from this any longer. 4. History of anxiety. 5. 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 6. History of depression 7. Cholecystectomy, splenectomy and distal pancreatectomy. 8. Distal pancreatic jejunostomy. Subjective: No major events or complaints; reports feeling ok; abd pain is same and under control with medications; no n/v/d; no sob or cp; + flatus; + BM; + activity Objective: Vitals: See below I's & O's: See below Exam: GENERAL: On exam, the patient was lying in bed and appeared to be comfortable and in no acute distress. ABDOMEN: Soft, nontender and nondistended. Incisions are clean, dry and intact without any evidence of erythema, edema, discharge, or hernia. There are no peritoneal signs or guarding. SKIN: Skin appears to be pink and feels warm to touch. NEUROLOGIC: Patient is awake, alert, and follows commands appropriately. Labs: See below Exam/Review of Systems Vital Signs Vitals Vital Signs Date Time Temp Pulse Resp B/P Pulse Ox O2 Delivery O2 Flow Rate FiO2 12/15/16 12:25 12/15/16 11:29 98.9 59 18 149/93 99 Intake and Output 12/14/16 12/14/16 12/15/16 15:00 23:00 07:00 Intake Total 300 ml 1116 ml 520 ml Output Total 1300 ml Balance 300 ml 1116 ml -780 ml Results Result Diagram: 12/15/16 0513 12/15/16 0513 NILS JO M.D. Dec 15, 2016 19:54
[2016-12-15 20:45] VITALS: BP 160/93; RESP 20
[2016-12-16] MEDS: HYDROmorphONE 1 MG/ML SYG IV PRN ×4 (01:12→13:16)
[2016-12-16 02:00] VITALS: BP 148/90; PULSE 55; RESP 18
[2016-12-16] MEDS: metroNIDAZOLE 500 MG/NS (PMX) 100 ML IVPB SCH ×2 (05:21→13:22)
[2016-12-16] MEDS: ALPRAZOLAM 0.5 MG TAB PO PRN (06:47)
[2016-12-16] MEDS: DEXTROSE 5%-0.45% NACL 1,000 ML IV SCH (06:47)
[2016-12-16 08:00] VITALS: BP 165/106; RESP 18
[2016-12-16] MEDS: CIPROFLOXACIN 400MG/D5W 200 ML IVPB SCH (09:12)
[2016-12-16] MEDS: CREON (24K-76K-120K) 1 CAP PO SCH ×2 (09:12→13:10)
[2016-12-16] MEDS: FAMOTIDINE 20 MG INJ IV SCH (09:13)
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
[2016-12-16 14:00] VITALS: BP 171/90; RESP 18
[2016-12-16] MEDS ORDERED: HYDROmorphONE 2 MG TAB PO PRN (16:30)
--- NOTE | 2016-12-16 16:48 | CONS ---
Date/Time of Note Date/Time of Note DATE: 12/16/16 TIME: 16:45 Assessment/Plan Assessment/Plan Chief Complaint/Hosp Course 31-year-old male with multiple hospitalizations for recurrent pancreatitis. This episode began approximately 2 week prior to his presentation states is associated with nausea and vomiting located in the same spot to his left lower quadrant with radiations to his back. Describes as a gnawing type of discomfort with peaks and trough with the loose stools. Patient states his pain is rated 10/10 before he came in since she has been treated during his hospitalization he has responded well to a milligram of Dilaudid every 4 hours but states that his usual doses every 3 hours. He has not taken the [place] that was ordered his pain after treatment with morphine decreases to approximately 3/ 10. The pain affects his physical functioning mood sleeping patterns overall for function. Patient states he was taking up to 8 [place] at home daily prior to presented to the emergency room. There is no past medical history of drug abuse he states he does smoke marijuana on occasion peer states he has not drank alcohol since July of this year. He does not appear to be overly medicated since here is not requested frequent renewals of his medication early dosing. He has never been in a drug treatment program. He is not insisting on any other medications for pain management except his usual regimen he has not have any side effects associated with his current regimen. Assessment and problem list Abdominal pain Nausea Vomiting Chronic pancreatitis Alcohol abuse, stable Leukocytosis Mild hypokalemia Plan Problems: Consultation Date/Type/Reason Admit Date/Time Dec 10, 2016 at 17:58 Initial Consult Date 12/13/16 Type of Consultation: Pain management 24 HR Interval Summary Free Text/Dictation Pain is controlled he looks comfortable, without nausea vomiting dizziness diplopia disorientation sweating pruritus mental cloudiness. Pain visually is 2 /10, patient states his pain is worse than that. He is scheduled to go home tomorrow. He is now orals. Lipase level is, other laboratory tests are normal including white blood cell count and liver function tests. Patient states he has Dilaudid tablets at home. I would suggest against prescribing further opioids upon discharge. Exam/Review of Systems Vital Signs Vitals Vital Signs Date Time Temp Pulse Resp B/P Pulse Ox O2 Delivery O2 Flow Rate FiO2 12/16/16 14:00 98.2 57 18 171/90 98 12/16/16 02:00 Room Air 12/15/16 12:25 Intake and Output 12/15/16 12/15/16 12/16/16 15:00 23:00 07:00 Intake Total 784 ml 800 ml 1360 ml Output Total 650 ml 900 ml Balance 134 ml 800 ml 460 ml Exam Constitutional: alert, No distress, No frail, No non-verbal, No obese, No oriented, No other, No well developed Respiratory: clear to auscultation, normal air movement Cardiovascular: nl pulses, regular rate and rhythm Gastrointestinal: nl liver, spleen, non-tender, soft Results Result Diagram: 12/15/16 0513 12/15/16512 Medications Medications Current Medications Ondansetron HCl (Zofran Inj) 4 mg Q6H PRN IV NAUSEA AND/OR VOMITING Last administered on 12/14/16 18:33; Admin Dose 4 MG; Start 12/10/16 at 17:00 Famotidine 20 mg 20 mg Q12 IV Last administered on 12/16/16 09:13; Admin Dose 20 MG; Start 12/10/16 at 21:00 Dextrose/Sodium Chloride 1,000 ml @ 80 mls/hr [id number] IV Last administered on 12/16/16 06:47; Admin Dose 80 MLS/HR; Start 12/11/16 at 14:30 Metronidazole 100 ml @ 100 mls/hr Q8 IVPB Last administered on 12/16/16 13:22 ; Admin Dose 100 MLS/HR; Start 12/11/16 at 22:00 Ciprofloxacin/ Dextrose (Cipro Ivpb) 200 ml @ 200 mls/hr Q12 IVPB Last administered on 12/16/16 09:12; Admin Dose 200 MLS/HR; Start 12/11/16 at 21:00 Alprazolam (Xanax) 1 mg Q8 PRN PO anxiety Last administered on 12/16/16 06:47 ; Admin Dose 1 MG; Start 12/12/16 at 11:30 Hydromorphone HCl (Dilaudid) 1 mg Q4 PRN IV SEVERE PAIN LEVEL 7-10 Last administered on 12/16/16 13:16; Admin Dose 1 MG; Start 12/15/16 at 17:00 ANA XAVIER Dec 16, 2016 16:48
--- NOTE | 2016-12-16 17:13 | PN ---
Date/Time of Note Date/Time of Note DATE: 12/16/16 TIME: 17:12 Assessment/Plan VTE Prophylaxis VTE Prophylaxis Intervention: SCD's Lines/Catheters IV Catheter Type (from Nrs): Peripheral IV Urinary Cath still in place: No Assessment/Plan Assessment/Plan Abdominal pain, acute on chronic Nausea Vomiting Chronic pancreatitis Alcohol abuse, stable Leukocytosis Mild hypokalemia Plan s/p GI consutl by ,s/p EGD showed acute on chronic gastritis, esophagitis IVF< pain conrol, IV abx S/P G surgery consultation no plan for surgical intervention d/c home today will follow up Subjective 24 Hr Interval Summary Free Text/Dictation pain controlled, switched to oral agents, Bp stable Exam/Review of Systems Vital Signs Vitals Vital Signs Date Time Temp Pulse Resp B/P Pulse Ox O2 Delivery O2 Flow Rate FiO2 12/16/16 14:00 98.2 57 18 171/90 98 12/16/16 02:00 Room Air 12/15/16 12:25 Intake and Output 12/15/16 12/15/16 12/16/16 15:00 23:00 07:00 Intake Total 784 ml 800 ml 1360 ml Output Total 650 ml 900 ml Balance 134 ml 800 ml 460 ml Results Result Diagram: 12/15/1651212/15/16512 Medications Medications Current Medications Ondansetron HCl (Zofran Inj) 4 mg Q6H PRN IV NAUSEA AND/OR VOMITING Last administered on 12/14/16 18:33; Admin Dose 4 MG; Start 12/10/16 at 17:00 Famotidine 20 mg 20 mg Q12 IV Last administered on 12/16/16 09:13; Admin Dose 20 MG; Start 12/10/16 at 21:00 Dextrose/Sodium Chloride 1,000 ml @ 80 mls/hr [id number] IV Last administered on 12/16/16 06:47; Admin Dose 80 MLS/HR; Start 12/11/16 at 14:30 Metronidazole 100 ml @ 100 mls/hr Q8 IVPB Last administered on 12/16/16 13:22 ; Admin Dose 100 MLS/HR; Start 12/11/16 at 22:00 Ciprofloxacin/ Dextrose (Cipro Ivpb) 200 ml @ 200 mls/hr Q12 IVPB Last administered on 12/16/16 09:12; Admin Dose 200 MLS/HR; Start 12/11/16 at 21:00 Alprazolam (Xanax) 1 mg Q8 PRN PO anxiety Last administered on 12/16/16 06:47 ; Admin Dose 1 MG; Start 12/12/16 at 11:30 Hydromorphone HCl (Dilaudid) 2 mg Q4H PRN PO PAIN; Start 12/16/16 at 16:30 JAMES KELLEY MD Dec 16, 2016 17:12
--- NOTE | 2016-12-16 17:13 | PDOCDIS ---
Discharge Instructions CONDITION Patient Condition: Good HOME CARE INSTRUCTIONS: Special Diet: soft consistency regular diet ACTIVITY: Activity Restrictions: Slowly Increase Activity Rest between Activity Avoid heavy lifting Avoid Heavy Housework FOLLOW UP/APPOINTMENTS Follow-up Plan Follow up with his own PMD through O insurance in 1-2 week. Follow upw [facility] LEONARDO Arreola as outpatient in 1-2 week after discharge JAMES KELLEY MD Dec 16, 2016 17:13
--- NOTE | 2016-12-17 23:24 | DS ---
Date/Time of Note Date/Time of Note DATE: 12/17/16 TIME: 23:19 Discharge Summary Admission/Discharge Info Admit Date/Time Dec 10, 2016 at 17:58 Discharge Date/Time Dec 16, 2016 at 18:00 Discharge Diagnosis Abdominal pain, acute on chronic Nausea Vomiting Chronic pancreatitis Alcohol abuse, stable Leukocytosis Mild hypokalemia Drug seeking Behaviour iV dilaudid Patient Condition: Good Consults GI consult , General surgery consult DR.Kambiz Torres, Pain management Dr.Lawrence Fields Procedures EGD which revealed acute on chronic gastritis,esohagitis Hx of Present Illness Patient is a 30-year-old male with a past medical history significant for chronic pancreatitis secondary to alcohol and is status post multiple abdominal surgeries including distal pancreatectomy, splenectomy, and cholecystectomy from Dr. Torres who presents again with left upper quadrant abdominal pain. Patient reports approximately 2-3 weeks of inability to tolerate p.o. due to abdominal pain and nausea. Patient states that he has not been able to take pain medication for approximately 2 weeks. Patient states that unlike last time which was exacerbated by alcohol, this time he has been abstaining from alcohol and has not been taking any other drugs except for marijuana use. Patient states that he missed an appointment for an endoscopy, upper, yesterday due to not feeling well. Patient was admitted by the ED. PMH: Alcoholic pancreatitis, alcohol abuse, anxiety, chronic pain PSH: Distal pancreatectomy, splenectomy, cholecystectomy Social: Denies smoking, quit drinking for 5 months, marijuana use positive Meds: [facility] Course pt presented with acute on chronic abd pain, he was noted to have electrolyte imbalances which was treated,. He Initially had a Gen Surge consultation by Dr.kambiz Torres- no surgical intervention was recommended but requested to have GI consult, he was seen [facility] - underwent EGD which revelaled Acute on chronic gastritis and esophagitis, he was started on PPI and recommendd to stop narcotis.He was constantly c/o abd pain and requesting IV diluaid. he was seen by Dr. Fields. and slowly he was switched to PO dialudid. and discharged to home with pO pain meds Home Meds Active Scripts Metoclopramide* (Reglan*) 10 Mg Tablet, 10 MG PO Q6 Y for NAUSEA AND/OR VOMITING , #20 TAB Prov:PROUSE,ANGELO M. PA-C 12/07/16 Hydrocodone/Acetaminophen ([place] 5-325 Tablet) 1 Each Tablet, 1 TAB PO Q6H Y for PAIN, #12 TAB Prov:ANGELO HOBBS PA-C 12/07/16 Electrolyte,Oral (Pedialyte) 1,000 Ml Solution, 100 ML PO Q6 Y for VOMITTING, # 1000 ML Prov:ANGELO HOBBS PA-C 12/07/16 Lorazepam* (Lorazepam*) 1 Mg Tablet, 1 MG PO Q8 Y for ANXIETY, #30 TAB Prov:MARTIN CHEN PEDIATRIC DENTIST 07/22/16 Ondansetron Hcl* (Zofran*) 4 Mg Tab, 4 MG PO Q6H Y for NAUSEA AND OR VOMITING, # 12 TAB Prov:GLENN LOPEZ MD 07/16/16 Mag Hydrox/Al Hydrox/Simeth (Maalox Advanced Suspension) 355 Ml Oral.susp, 2 TSP PO TID for PAIN, #24 OZ Prov:GLENN LOPEZ MD 07/16/16 Famotidine* (Famotidine*) 40 Mg Tablet, 40 MG PO HS, #30 TAB Prov:GLENN LOPEZ MD 07/16/16 Reported Medications Hydrocodone/Acetaminophen ([place] 10-325 Tablet) 1 Each Tablet, 1 EACH PO TID Y for PAIN, TAB 07/16/16 Hrdmlu-Wvloxdha-Bdmenac* (Sharon MICHAUD* 24,000) 24,000 L-76,000-120,000 Unit Capsule., 1 CAP PO WITH MEALS, CAP 07/21/14 Follow-up Plan Follow up with his own PMD through HMO insurance and GI as outpatient through his hMO insurance in 1-2 weeks Primary Care Provider John Hilliard MD Time spent on discharge: > 30 minutes JAMES KELLEY MD Dec 17, 2016 23:24
== END 2016-12-16 18:00 | disposition home or self-care (01) | DRG 392 ==
LOC: FTE 13:27 → PP2 17:58 → FTE 18:19 → PP2 12-13 08:53 → MS3 12-13 08:53 → MS1 12-13 23:25
PROVIDERS: ADMIT Internal Medicine; ATTEND Internal Medicine
PROC: 0DB68ZX Excision of Stomach, Via Natural or Artificial Opening Endoscopic, Diagnostic (ICD-10-PCS; principal; 2016-12-15 11:30)
DX: K29.00 Acute gastritis without bleeding (principal); R64 Cachexia; K86.0 Alcohol-induced chronic pancreatitis; Z68.1 Body mass index [BMI] 19.9 or less, adult; K29.50 Unspecified chronic gastritis without bleeding; F10.10 Alcohol abuse, uncomplicated; E87.6 Hypokalemia; F12.90 Cannabis use, unspecified, uncomplicated; I86.4 Gastric varices; G89.4 Chronic pain syndrome; Z76.5 Malingerer [conscious simulation]; K20.9 Esophagitis, unspecified; Z87.891 Personal history of nicotine dependence
CPT/HCPCS: 36415; 74000; 74181; 80048; 80053; 81003; 83690; 83735; 84100; 85025; 85610; 85730; 87040; 88305; 88312; 96374; 96375; 96376; J0360; J0744; J1170; J2250; J2405; J2543; J3010; J3475; J3480; J7030; J7042

== ENCOUNTER 2017-02-22 02:40 | Inpatient (IN) | payer OTHER ==
[~2017-02-22] VITALS: Ht 180.3 cm; Wt 55.6 kg
[2017-02-22] MEDS ORDERED: HYDROmorphONE 1 MG/ML SYG IV STA ×2 (04:24→05:41)
[2017-02-22] MEDS ORDERED: SOD CHLORIDE 0.9% 1,000 ML IV STA (04:24)
[2017-02-22] MEDS ORDERED: ONDANSETRON 4 MG INJ IV STA (04:24)
[2017-02-22 04:41] LABS: ABNORMAL IP MESSAGE 1; BASOPHIL # 0.1 10^3/ul (0.0-0.1); BASOPHILS % 0.4 % (0.0-2.0); EOSINOPHILS % 0.2 % (0.0-7.0); HEMATOCRIT 40.8 % (42.0-52.0); HEMOGLOBIN 13.6 g/dl (14.0-18.0); LYMPHOCYTES % 12.3 % (15.0-51.0); MEAN CORPUSCULAR HEMOGLOBIN 31.9 pg (29.0-33.0); MEAN CORPUSCULAR HGB CONC 33.3 g/dl (32.0-37.0); MEAN CORPUSCULAR VOLUME 95.6 fl (82.0-101.0); MEAN PLATELET VOLUME 10.1 fl (7.4-10.4); MONOCYTE # 1.7 10^3/ul (0.3-0.9); MONOCYTES % 10.5 % (0.0-11.0); NEUTROPHIL # 12.3 10^3/ul (1.6-7.5); NEUTROPHILS % 76.4 % (39.0-77.0); PLATELET COUNT 295 10^3/UL (140-415); POSITIVE DIFF @See below; RED BLOOD COUNT 4.27 10^6/ul (4.70-6.10); RED CELL DISTRIBUTION WIDTH 13.6 % (11.5-14.5); WHITE BLOOD COUNT 16.1 10^3/ul (4.8-10.8)
[2017-02-22 04:45] LABS: ADD UMIC NO; UR ASCORBIC ACID NEGATIVE (NEGATIVE); UR BILIRUBIN (Dip) NEGATIVE (NEGATIVE); UR BLOOD (Dip) NEGATIVE (NEGATIVE); UR CLARITY CLEAR (CLEAR); UR COLOR YELLOW (YELLOW); UR GLUCOSE (Dip) NEGATIVE (NEGATIVE); UR KETONES (Dip) NEGATIVE (NEGATIVE); UR LEUKOCYTE ESTERASE (Dip) NEGATIVE Leu/ul (NEGATIVE); UR NITRITE (Dip) NEGATIVE (NEGATIVE); UR SPECIFIC GRAVITY (Dip) 1.016 (1.003-1.030); UR TOTAL PROTEIN (Dip) NEGATIVE (NEGATIVE); UR UROBILINOGEN (Dip) NEGATIVE (NEGATIVE)
[2017-02-22 05:08] LABS: ALBUMIN 4.2 g/dl (3.3-4.9); ALBUMIN/GLOBULIN RATIO 1.23; BILIRUBIN,INDIRECT 0.1 mg/dl (0-1.1); BILIRUBIN,TOTAL 0.1 mg/dl (0.2-1.3); CALCIUM 9.3 mg/dl (8.4-10.2); CREATININE 0.79 mg/dl (0.61-1.24); POTASSIUM 4.4 mmol/L (3.5-5.1); TOTAL PROTEIN 7.6 g/dl (6.1-8.1)
[2017-02-22] MEDS ORDERED: D5W-0.45 NACL + KCL 20 MEQ 1,000 ML IV ONE (06:16)
[2017-02-22] MEDS ORDERED: ACETAMINOPHEN 325 MG TAB PO PRN (06:30)
[2017-02-22] MEDS ORDERED: ONDANSETRON 4 MG INJ IV PRN ×2 (06:30→10:00)
--- NOTE | 2017-02-22 07:11 | RADRPT ---
PROCEDURE: CT Abdomen and Pelvis without contrast. CLINICAL INDICATION: Left flank pain. TECHNIQUE: Routine axial tomographic images of the abdomen and pelvis were obtained from the domes the diaphragm to the symphysis pubis. The patient was scanned withoutoral or intravenous contrast. Coronal and sagittal reformatted images were obtained from the axial source images. Images were re viewed on a high-resolution PACS workstation. The total exam CTDI equals 4.55 mGy and the total exam DLP equals 256.98 mGy-cm. One or more of the following dose reduction techniques were used: Autom ated exposure control, adjustment of the mA and / or kV according to patient size, or use of iterati ve reconstruction technique. COMPARISON: None. FINDINGS: The visualized portions of the lung bases demonstrate mild left basilar atelectasis Evaluation of the intra-abdominal solid organs is somewhat limited on this noncontrast examination. The liver ap pears normal in size. There is no intra or extrahepatic biliary dilatation. The gallbladder is lesly gically absent. The spleen is surgically absent. There is a cluster of calcifications within the le ft upper quadrant, possibly within the splenic tail. The adrenal glands are not well visualized. The right kidney is ptotic and slightly ectopic, along the inferior margin of the liver. Again noted is a 8 mm hyperdense exophytic lesion along the upper pole left kidney. No renal, ureteral, or blad cullen calculi are identified. No perinephric inflammatory changes are identified. The urinary bladder is grossly unremarkable. There are postsurgical changes of small bowel resection. There is mild fluid-filled distension of th e small bowel just proximal to the anastomosis. There is adjacent mesenteric stranding. Moderate vol ume stool is seen throughout the colon. The appendix is normal in appearance. The pelvic organs ar e grossly unremarkable. No intraperitoneal free fluid, free air, or abscess is identified. No retro peritoneal, mesenteric, or inguinal lymphadenopathy is identified. The aorta is normal in caliber. The osseous structures an straight a Schmorl's node within the superior endplate of the T11 vertebra l body. There has been significant interval weight loss of prior examination with near complete ab sence of subcutaneous and intra-abdominal fat. IMPRESSION: 1. Significant interval weight loss since the prior examination dated 07/16/2016 now with near comp lete absence of subcutaneous and intra-abdominal fat. This significantly limits evaluation on this n oncontrast examination. Consider repeat CT with IV contrast for further evaluation. 2. Stable postsurgical changes from prior splenectomy and cholecystectomy. 3. Stable postsurgical changes from small bowel resection. There is mild fluid-filled distension of the small bowel just proximal to the anastomosis with adjacent mesenteric fat stranding. Again, thi s may be better evaluated on postcontrast imaging. 4. Clustered calcifications within the left upper quadrant, possibly within the pancreatic tail, al so better evaluated postcontrast. 5. Moderate to large volume stool throughout the colon, consistent with constipation. 6. Stable a millimeter dense nodule arising from the superior pole left kidney, likely a dense cyst . RPTAT: HH .Padmaja Khoury MD, MD Date Time Electronically viewed and signed by .Padmaja Khoury MD, on 02/22/2017 06:32 .G/
[2017-02-22 07:34] VITALS: TEMP 98
[2017-02-22] MEDS: HYDROmorphONE 1 MG/ML SYG IV PRN ×2 (08:45→13:00)
[2017-02-22 09:22] VITALS: BP 117/68; PULSE 47; RESP 18
[2017-02-22 09:32] VITALS: Ht 180.3 cm; Wt 55.6 kg
[2017-02-22] MEDS ORDERED: SOD CHLORIDE 0.9% 1,000 ML IV SCH (09:43)
--- NOTE | 2017-02-22 09:56 | HP ---
Date/Time of Note Date/Time of Note DATE: 02/22/17 TIME: 09:56 Assessment/Plan VTE Prophylaxis VTE Prophylaxis Intervention: SCD's Lines/Catheters IV C[facility]ter [facility] (from [facility]): Peripheral IV Assessment/Plan Chief Complaint/Hosp Course 1. Acute on chronic abdominal pain with associated multiple episodes of vomiting. CT scan of the abdomen and pelvis showed stable postsurgical changes with mild fluid-filled distention of the small bowel just proximal to the anastomosis with adjacent mesenteric fat stranding along with moderate to large volume of stool throughout the colon. The patient most probably has delayed gastric emptying and decreased gastrointestinal motility because of chronic opioid use. The patient will be started on routine stool softeners and appropriate laxatives. The patient will also be started on prokinetics. The patient's flag signalman will be informed about the patient's admission. 2. Leukocytosis. Most probably reactive. We will monitor. 3. Chronic pain. The patient will be provided with adequate pain control. 4. Anxiety disorder. Continue PRN anxiolytics. Plan: The patient will be admitted to inpatient medical surgical floor. The patient will be started on a soft diet. The patient will be started on DVT prophylaxis. The patient will remain a full code. Activities will be as tolerated . The rest of the patient's management will be based on the clinical course, inputs from consultants, and the results of diagnostic studies. Based on the patient's clinical presentation, he most probably requires at least 2 midnights' stay for further management and evaluation of his clinical presentation. The case and management of this patient was fully discussed with Dr. Abreu. Problems: HPI/ROS Admit Date/Time Admit Date/Time Feb 22, 2017 at 06:17 Hx of Present Illness Reason for admission: Abdominal pain, vomiting. This is a 30-year-old male with a past medical history of chronic pancreatitis, status post multiple abdominal surgeries including distal pancreatectomy, splenectomy, and cholecystectomy, who came to the emergency room with chief complaint of nonexertional, nonradiating epigastric abdominal pain as well as multiple episodes of nonbloody, bilious emesis that has been going on for the past 1 week. The patient denied any diarrhea, chest pain, headache, dyspnea, hematuria or pyuria. In the emergency room, the patient underwent a CT scan of the abdomen and pelvis that showed stable postsurgical changes with mild fluid- filled distention of the small bowel just proximal to the anastomosis with adjacent mesenteric fat stranding. CT also revealed moderate to large volume stool throughout the colon, consistent with constipation. The patient's serum lipase level was within normal limits. The patient had some leukocytosis. The patient was treated with IV analgesics in the emergency room. ROS Constitutional: no complaints Eyes: no complaints ENT: no complaints Respiratory: no complaints Cardiovascular: no complaints Gastrointestinal: constipation, nausea, pain, vomiting Genitourinary: dysuria Musculoskeletal: no complaints Skin: no complaints Neurologic: no complaints Endocrine: no complaints Lymphatic: no complaints Psychological: anxiety Immunologic: no complaints PMH/Family/Social Past Medical History Alcoholic pancreatitis. ETOH abuse. Anxiety. Chronic pain. 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 Past Surgical History Distal pancreatectomy, splenectomy, distal pancreatic jejunostomy. Past Surgical Hx: cholecystectomy Social History Alcohol Use: sober Smoking Status: Current every day smoker Drug Use: marijuana Exam/Review of Systems Vital Signs Vitals Vital Signs Date Time Temp Pulse Resp B/P Pulse Ox O2 Delivery O2 Flow Rate FiO2 02/22/17 09:22 97.5 47 18 117/68 100 Room Air Exam Exam GENERAL: This is a well-built, well-nourished male lying in bed, in no apparent distress. HEENT: Head normocephalic and atraumatic. Eyes: Anicteric sclerae. Conjunctivae clear. ENT: Nasal septum is midline. Oral mucosa is dry. NECK: Supple. No JVD noticed. RESPIRATORY: Bilaterally clear to auscultation. No adventitious breath sounds. No use of accessory muscles of respiration. CARDIAC: Regular rate and rhythm. No murmurs. Bradycardia. ABDOMEN: Multiple surgical scars on the abdomen. Diffuse abdominal tenderness. EXTREMITIES: No cyanosis, no clubbing, no edema. Peripheral pulses palpable. NEUROLOGIC: The patient is awake, alert and oriented. Cranial nerves are grossly intact. Labs Result Diagram: 02/22/1740902/22/17409 Medications Medications Current Medications Potassium Chloride/Dextrose/ Sod Cl (D5-1/2ns + KCl 20 Meq) 1,000 ml @ 125 mls/ hr Q8H ONCE IV Last administered on 02/22/17t 07:09; Admin Dose 125 MLS/HR; Start 02/22/17 at 06:16; Stop 02/22/17 at 14:15 Hydromorphone HCl 1 mg 1 mg Q4H PRN IV PAIN Last administered on 02/22/17t 08: 45; Admin Dose 1 MG; Start 02/22/17 at 09:00 Sodium Chloride (NS) 1,000 ml @ 100 mls/hr Q10H IV ; Start 02/22/17 at 09:43; Stop 02/22/17 at 19:42 Ondansetron HCl (Zofran Inj) 4 mg Q6H PRN IV NAUSEA AND/OR VOMITING; Start at 10:00 Acetaminophen/ Hydrocodone Bitart ([place] (5/325)) 1 tab Q6H PRN PO MODERATE PAIN LEVEL 4-6; Start 02/22/17 at 10:00 Polyethylene Glycol (Miralax) 17 gm BID PO ; Start 02/22/17 at 10:00 Metoclopramide HCl (Reglan) 5 mg Q6 IV ; Start 02/22/17 at 12:00 Bisacodyl (Dulcolax) 10 mg DAILY PRN PO CONSTIPATION; Start 02/22/17 at 10:00 Sodium Biphosphate/ Sodium Phosphate (Fleet Enema) 133 ml DAILY PRN [place] CONSTIPATION; Start 02/22/17 at 10:00 Magnesium Citrate (Citroma) 300 ml NOW ONCE PO ; Start 02/22/17 at 10:00; Stop 02/22/17 at 10:01 MARTIN CHEN NP Feb 22, 2017 09:56
[2017-02-22] MEDS ORDERED: NACL 0.9% 3 ML SYG IV SCH (10:00)
[2017-02-22] MEDS ORDERED: MAGNESIUM CITRATE 300 ML BTL PO ONE (10:00)
[2017-02-22] MEDS ORDERED: NA PHOSPHATE/BIPHOS 133 ML ENEMA PR PRN (10:00)
[2017-02-22] MEDS ORDERED: POLYETHYLENE GLYCOL 17 GM PACKET PO SCH (10:00)
[2017-02-22] MEDS ORDERED: HYDROCODONE/APAP (5/325) TAB PO PRN (10:00)
[2017-02-22] MEDS ORDERED: BISACODYL (EC) 5 MG TAB PO PRN (10:00)
[2017-02-22] MEDS ORDERED: LORAZEPAM 1 MG TAB PO PRN (10:30)
[2017-02-22] MEDS ORDERED: METOCLOPRAMIDE 10 MG INJ IV SCH (12:00)
--- NOTE | 2017-02-22 16:00 | ERA ---
ER Documentation Chief Complaint Date/Time DATE: 02/22/17 TIME: 15:54 Chief Complaint L side abd pain x 1 week, hx of pancreatitis per pt HPI 31-year-old male with a history of chronic pancreatitis presenting to the ER with left-sided abdominal pain for about 1-2 weeks. He has had daily nonbloody and nonbilious vomiting. He has tried to control his symptoms with medications he has at home, but they are not helping. He states the pain is sharp, aching, on the left side of his abdomen mostly but radiates across throughout the whole abdomen. No associated fevers, chills, dysuria, hematuria. He has been having normal bowel movements. ROS All systems reviewed and are negative except as per history of present illness. Medications Home Meds Active Scripts Electrolyte,Oral (Pedialyte) 1,000 Ml Solution, 100 ML PO Q6 Y for VOMITTING, # 1000 ML Prov:ANGELO HOBBS PA-C 12/07/16 Lorazepam* (Lorazepam*) 1 Mg Tablet, 1 MG PO Q8 Y for ANXIETY, #30 TAB Prov:MARTIN CHEN SERVICE ARCHITECT 07/22/16 Famotidine* (Famotidine*) 40 Mg Tablet, 40 MG PO HS, #30 TAB Prov:GLENN LOPEZ MD 07/16/16 Reported Medications Hydrocodone/Acetaminophen ([place] 10-325 Tablet) 1 Each Tablet, 1 EACH PO TID Y for PAIN, TAB 07/16/16 Qdrnuq-Bxxyrfst-Jukatkh* (Creon DR* 24,000) 24,000 L-76,000-120,000 Unit Capsule.dr, 1 CAP PO WITH MEALS, CAP 07/21/14 Discontinued Scripts Metoclopramide* (Reglan*) 10 Mg Tablet, 10 MG PO Q6 Y for NAUSEA AND/OR VOMITING , #20 TAB Prov:ANGELO HOBBS PA-C 12/07/16 Hydrocodone/Acetaminophen ([place] 5-325 Tablet) 1 Each Tablet, 1 TAB PO Q6H Y for PAIN, #12 TAB Prov:ANGELO HOBBS PA-C 12/07/16 Ondansetron Hcl* (Zofran*) 4 Mg Tab, 4 MG PO Q6H Y for NAUSEA AND OR VOMITING, # 12 TAB Prov:GLENN LOPEZ MD 07/16/16 Mag Hydrox/Al Hydrox/Simeth (Maalox Advanced Suspension) 355 Ml Oral.susp, 2 TSP PO TID for PAIN, #24 OZ Prov:GLENN LOPEZ MD 07/16/16 Allergies Allergies: Coded Allergies: morphine (Unverified Allergy, Intermediate, itchy, hives, 02/22/17) HAS TAKEN NORCO WITH NO REACTION PMhx/Soc History of Surgery: Yes (unknown dates) Anesthesia Reaction: No Hx Neurological Disorder: No Hx Respiratory Disorders: No Hx Cardiac Disorders: No Hx Psychiatric Problems: Yes (anxiety) Hx Miscellaneous Medical Probl: No Hx Alcohol Use: Yes (apr 2016, beer) Hx Substance Use: Yes Hx Tobacco Use: No Smoking Status: Current every day smoker FmHx Family History: No diabetes Physical Exam Vitals Vital Signs Date Time Temp Pulse Resp B/P Pulse Ox O2 Delivery O2 Flow Rate FiO2 02/22/17 05:47 66 20 120/63 97 Room Air 02/22/17 02:45 98.0 61 20 117/58 100 Physical Exam Const: Thin male, in mild distress secondary to pain, nontoxic Head: Atraumatic Eyes: Normal Conjunctiva ENT: Dry mucous membranes Neck: Full range of motion..~ No meningismus. Resp: Clear to auscultation bilaterally Cardio: Regular rate and rhythm, no murmurs Abd: Soft, diffuse mild tenderness to palpation, more pronounced in the epigastric area, non distended. Hyperactive bowel sounds Skin: No petechiae or rashes Back: No midline or flank tenderness Ext: No cyanosis, or edema Neur: Awake and alert Psych: Normal Mood and Affect Result Diagram: 02/22/1740902/22/17409 Results 24 hrs Laboratory Tests Test 02/22/17 04:00 02/22/17 04:10 Urine Color YELLOW Urine Clarity CLEAR Urine pH 6.0 Urine Specific [place] 1.016 Urine Ketones NEGATIVEmg/dL Urine Nitrite NEGATIVEmg/dL Urine Bilirubin NEGATIVEmg/dL Urine Urobilinogen NEGATIVEmg/dL Urine Leukocyte Esterase NEGATIVELeu/ul Urine Hemoglobin NEGATIVEmg/dL Urine Glucose NEGATIVEmg/dL Urine Total Protein NEGATIVEmg/dl White Blood Count 16.110^3/ul Red Blood Count 4.2710^6/ul Hemoglobin 13.6g/dl Hematocrit 40.8% Mean Corpuscular Volume 95.6fl Mean Corpuscular Hemoglobin 31.9pg Mean Corpuscular Hemoglobin Concent 33.3g/dl Red Cell Distribution Width 13.6% Platelet Count 85362^3/UL Mean Platelet Volume 10.1fl Neutrophils % 76.4% Lymphocytes % 12.3% Monocytes % 10.5% Eosinophils % 0.2% Basophils % 0.4% Nucleated Red Blood Cells % 0.0/100WBC Neutrophils # 12.310^3/ul Lymphocytes # 2.010^3/ul Monocytes # 1.710^3/ul Eosinophils # 0.010^3/ul Basophils # 0.110^3/ul Nucleated Red Blood Cells # 0.010^3/ul Sodium Level 146mmol/L Potassium Level 4.4mmol/L Chloride Level 107mmol/L Carbon Dioxide Level 28mmol/L Anion Gap 15 Blood Urea Nitrogen 13mg/dl Creatinine 0.79mg/dl Glucose Level 77mg/dl Calcium Level 9.3mg/dl Total Bilirubin 0.1mg/dl Direct Bilirubin 0.00mg/dl Indirect Bilirubin 0.1mg/dl Aspartate Amino Transf (AST/SGOT) 29IU/L Alanine Aminotransferase (ALT/SGPT) 61IU/L Alkaline Phosphatase 73IU/L Total Protein 7.6g/dl Albumin 4.2g/dl Globulin 3.40g/dl Albumin/Globulin Ratio 1.23 Lipase 41U/L Thyroid Stimulating Hormone (TSH) 0.057MIU/L Free Thyroxine 0.79ng/dl Current Medications Medications (Trade) Dose Ordered Sig/Desiree Route PRN Reason Start Time Stop Time Status Last Admin Dose Admin Sodium Chloride (NS) 1,000 ml @ 1,000 mls/hr Q1H STAT IV 02/22/17 04:24 02/22/17 05:23 DC 02/22/17 04:33 Hydromorphone HCl (Dilaudid) 1 mg ONCE STAT IV 02/22/17 04:24 02/22/17 04:26 DC 02/22/17 04:32 Ondansetron HCl (Zofran Inj) 4 mg ONCE STAT IV 02/22/17 04:24 02/22/17 04:26 DC 02/22/17 04:32 Hydromorphone HCl 1 mg 1 mg ONCE STAT IV 02/22/17 05:41 02/22/17 05:42 DC 02/22/17 05:46 Potassium Chloride/Dextrose/ Sod Cl (D5-1/2ns + KCl 20 Meq) 1,000 ml @ 125 mls/hr Q8H ONCE IV 02/22/17 06:16 02/22/17 14:35 DC 02/22/17 07:09 Procedures/MDM Labs: CBC shows leukocytosis without left shift BMP shows hypernatremia Liver enzymes unremarkable Lipase within normal limits Urinalysis without evidence of infection or hematuria Imaging: CT abdomen and pelvis: Results pending MDM Patient is presenting with acute on chronic abdominal pain with intractable nausea and vomiting. Vitals are unremarkable. He does appear to be dehydrated on exam. IV fluid bolus was started. Pain medications and antiemetics were given. Patient required multiple doses of pain medications here. I believe he will benefit from bowel rest, pain medication, and IV fluids. I have a low suspicion for acute surgical abdomen. CT of the abdomen and pelvis was done to evaluate for possible renal colic. I have a lower suspicion for bowel obstruction, however this remains on the differential. He is not stable for discharge at this time and will be admitted for further management of his condition. Accepting Care Team: Current data and ongoing care discussed. Time: Time of admission Primary Provider: Hiro Consulting: None Outstanding Data: CT abdomen and pelvis Departure Diagnosis: Primary Impression: Abdominal pain Qualified Code: R10.10 - Pain of upper abdomen Additional Impressions: Intractable nausea and vomiting Qualified Code: R11.2 - Intractable vomiting with nausea, unspecified vomiting type History of chronic pancreatitis Condition: LIZZY Encinas MD Feb 22, 2017 16:00
--- NOTE | 2017-02-22 20:15 | DS ---
Date/Time of Note Date/Time of Note DATE: 02/22/17 TIME: 20:15 Discharge Summary Admission/Discharge Info Admit Date/Time Feb 22, 2017 at 06:17 Discharge Date/Time Feb 22, 2017 at 18:00 (LEFT AGAINST MEDICAL ADVICE) Discharge Diagnosis 1. Acute on chronic abdominal pain with associated multiple episodes of vomiting. 2. Leukocytosis. 3. Chronic pain. 4. Anxiety disorder. 5. Sinus bradycardia. 6. 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 Patient Condition: Fair Procedures CT Abdomen & Pelvis IMPRESSION: 1. Significant interval weight loss since the prior examination dated 2016 now with near complete absence of subcutaneous and intra-abdominal fat. This significantly limits evaluation on this noncontrast examination. Consider repeat CT with IV contrast for further evaluation. 2. Stable postsurgical changes from prior splenectomy and cholecystectomy. 3. Stable postsurgical changes from small bowel resection. There is mild fluid- filled distension of the small bowel just proximal to the anastomosis with adjacent mesenteric fat stranding. Again, this may be better evaluated on postcontrast imaging. 4. Clustered calcifications within the left upper quadrant, possibly within the pancreatic tail, also better evaluated postcontrast. 5. Moderate to large volume stool throughout the colon, consistent with constipation. 6. Stable a millimeter dense nodule arising from the superior pole left kidney , likely a dense cyst. Hx of Present Illness Reason for admission: Abdominal pain, vomiting. This is a 30-year-old male with a past medical history of chronic pancreatitis, status post multiple abdominal surgeries including distal pancreatectomy, splenectomy, and cholecystectomy, who came to the emergency room with chief complaint of nonexertional, nonradiating epigastric abdominal pain as well as multiple episodes of nonbloody, bilious emesis that has been going on for the past 1 week. The patient denied any diarrhea, chest pain, headache, dyspnea, hematuria or pyuria. In the emergency room, the patient underwent a CT scan of the abdomen and pelvis that showed stable postsurgical changes with mild fluid- filled distention of the small bowel just proximal to the anastomosis with adjacent mesenteric fat stranding. The CT also revealed moderate to large volume stool throughout the colon, consistent with constipation. The patient's serum lipase level was within normal limits. The patient had some leukocytosis. The patient was treated with IV analgesics in the emergency room. Hospital Course The patient's CT scan of the abdomen and pelvis showed stable postsurgical changes with mild fluid-filled distention of the small bowel just proximal to the anastomosis with adjacent mesenteric fat stranding along with moderate to large volume of stool throughout the colon. The patient most probably has delayed gastric emptying and decreased gastrointestinal motility because of chronic opioid use. The patient was started on routine stool softeners and appropriate laxatives. The patient was also started on prokinetics. The patient's slot key person was informed about the patient's admission. During the patient's hospital stay, the patient was noticed to have bradycardia. The patient's 12-lead EKG confirmed this with significant bradycardia less than 40/min. Consequently, the patient's IV opioids were discontinued. The plan was to transfer the patient to telemetry floor for close monitoring. A cardiology consult was also called. Meanwhile, the patient wanted to leave the hospital AGAINST MEDICAL ADVICE since he was not getting any IV opioids. The patient was advised on the consequences of leaving the hospital AGAINST MEDICAL ADVICE including the possibility of . Nevertheless, the patient left the hospital AGAINST MEDICAL ADVICE. No discharge planning was done since the patient left the hospital against medical advice The case and management of this patient was fully discussed with Dr. Abreu. Home Meds Active Scripts Electrolyte,Oral (Pedialyte) 1,000 Ml Solution, 100 ML PO Q6 Y for VOMITTING, # 1000 ML Prov:ANGELO HOBBS PA-C 12/07/16 Lorazepam* (Lorazepam*) 1 Mg Tablet, 1 MG PO Q8 Y for ANXIETY, #30 TAB Prov:MARTIN CHEN NP 07/22/16 Famotidine* (Famotidine*) 40 Mg Tablet, 40 MG PO HS, #30 TAB Prov:GLENN LOPEZ MD 07/16/16 Reported Medications Hydrocodone/Acetaminophen ([place] 10-325 Tablet) 1 Each Tablet, 1 EACH PO TID Y for PAIN, TAB 07/16/16 Janqmu-Gvvbuyjk-Nxlkctb* (Sharon MICHAUD* 24,000) 24,000 L-76,000-120,000 Unit Capsule.dr, 1 CAP PO WITH MEALS, CAP 07/21/14 Discontinued Scripts Metoclopramide* (Reglan*) 10 Mg Tablet, 10 MG PO Q6 Y for NAUSEA AND/OR VOMITING , #20 TAB Prov:ANGELO HOBBS PA-C 12/07/16 Hydrocodone/Acetaminophen ([place] 5-325 Tablet) 1 Each Tablet, 1 TAB PO Q6H Y for PAIN, #12 TAB Prov:ANGELO HOBBS PA-C 12/07/16 Ondansetron Hcl* (Zofran*) 4 Mg Tab, 4 MG PO Q6H Y for NAUSEA AND OR VOMITING, # 12 TAB Prov:GLENN LOPEZ MD 07/16/16 Mag Hydrox/Al Hydrox/Simeth (Maalox Advanced Suspension) 355 Ml Oral.susp, 2 TSP PO TID for PAIN, #24 OZ Prov:GLENN LOPEZ MD 07/16/16 Follow-up Plan The patient left the hospital against medical advice. Primary Care Provider John Hilliard MD Time spent on discharge: < 30 minutes Pending Labs Laboratory Tests Test 02/22/17 04:00 02/22/17 04:10 Urine Color YELLOW (YELLOW) Urine Clarity CLEAR (CLEAR) Urine pH 6.0 (5.0-9.0) Urine Specific [place] 1.016 (1.003-1.030) Urine Ketones NEGATIVEmg/dL (NEGATIVE) Urine Nitrite NEGATIVEmg/dL (NEGATIVE) Urine Bilirubin NEGATIVEmg/dL (NEGATIVE) Urine Urobilinogen NEGATIVEmg/dL (NEGATIVE) Urine Leukocyte Esterase NEGATIVELeu/ul (NEGATIVE) Urine Hemoglobin NEGATIVEmg/dL (NEGATIVE) Urine Glucose NEGATIVEmg/dL (NEGATIVE) Urine Total Protein NEGATIVEmg/dl (NEGATIVE) White Blood Count 16.110^3/ul (4.8-10.8) Red Blood Count 4.2710^6/ul (4.70-6.10) Hemoglobin 13.6g/dl (14.0-18.0) Hematocrit 40.8% (42.0-52.0) Mean Corpuscular Volume 95.6fl (82.0-101.0) Mean Corpuscular Hemoglobin 31.9pg (29.0-33.0) Mean Corpuscular Hemoglobin Concent 33.3g/dl (32.0-37.0) Red Cell Distribution Width 13.6% (11.5-14.5) Platelet Count 65509^3/UL (140-415) Mean Platelet Volume 10.1fl (7.4-10.4) Neutrophils % 76.4% (39.0-77.0) Lymphocytes % 12.3% (15.0-51.0) Monocytes % 10.5% (0.0-11.0) Eosinophils % 0.2% (0.0-7.0) Basophils % 0.4% (0.0-2.0) Nucleated Red Blood Cells % 0.0/100WBC (0.0-0.0) Neutrophils # 12.310^3/ul (1.6-7.5) Lymphocytes # 2.010^3/ul (0.8-2.9) Monocytes # 1.710^3/ul (0.3-0.9) Eosinophils # 0.010^3/ul (0.0-0.5) Basophils # 0.110^3/ul (0.0-0.1) Nucleated Red Blood Cells # 0.010^3/ul (0.0-0.0) Sodium Level 146mmol/L (135-144) Potassium Level 4.4mmol/L (3.5-5.1) Chloride Level 107mmol/L (97-110) Carbon Dioxide Level 28mmol/L (21-31) Anion Gap 15 (8-16) Blood Urea Nitrogen 13mg/dl (7-20) Creatinine 0.79mg/dl (0.61-1.24) Glucose Level 77mg/dl (70-220) Calcium Level 9.3mg/dl (8.4-10.2) Total Bilirubin 0.1mg/dl (0.2-1.3) Direct Bilirubin 0.00mg/dl (0.00-0.20) Indirect Bilirubin 0.1mg/dl (0-1.1) Aspartate Amino Transf (AST/SGOT) 29IU/L (15-46) Alanine Aminotransferase (ALT/SGPT) 61IU/L (13-69) Alkaline Phosphatase 73IU/L (42-121) Total Protein 7.6g/dl (6.1-8.1) Albumin 4.2g/dl (3.3-4.9) Globulin 3.40g/dl (1.3-3.2) Albumin/Globulin Ratio 1.23 Lipase 41U/L (23-300) Thyroid Stimulating Hormone (TSH) 0.057MIU/L (0.465-4.680) Free Thyroxine 0.79ng/dl (0.79-2.35) MARTIN CHEN NP Feb 22, 2017 20:15
[2017-02-23] MEDS ORDERED: INFLUENZA VIRUS VACCINE 0.5 ML SYG IM* ONE (12:00)
--- NOTE | 2017-02-24 18:29 | RADRPT ---
Vent Rate: 39 bpm RR Interval: 0 msec KS Interval: 144 msec QRS Duration: 84 msec QT Interval: 482 msec QTC Interval: 388 msec P-R-T Jolon: 83 - 78 - 77 degrees Marked sinus bradycardia Abnormal ECG Electronically Signed By: Riley Arias [id number]
== END 2017-02-22 18:00 | disposition left against medical advice (07) | DRG 392 ==
LOC: E/R 02:40 → MS2 06:17
PROVIDERS: ADMIT Family Medicine; ATTEND Family Medicine
DX: K30 Functional dyspepsia (principal); R00.1 Bradycardia, unspecified; F17.210 Nicotine dependence, cigarettes, uncomplicated; D72.829 Elevated white blood cell count, unspecified; G89.29 Other chronic pain; F41.9 Anxiety disorder, unspecified; K59.00 Constipation, unspecified; F10.10 Alcohol abuse, uncomplicated; F12.90 Cannabis use, unspecified, uncomplicated; F11.90 Opioid use, unspecified, uncomplicated
CPT/HCPCS: 36415; 74176; 80053; 81003; 83690; 84439; 84443; 85025; 93005; 96374; 96375; 96376; J1170; J2405; J2765; J3480; J7030

== ENCOUNTER 2017-03-13 00:37 | Observation (INO) | payer OTHER ==
[~2017-03-13] VITALS: Ht 180.3 cm; Wt 54.2 kg
[~2017-03-13 00:37] MED LIST changes: -HYDR-906 PO; -MAG355OR14 PO; -METO10TA92 PO; -ONDA-43 PO
[2017-03-13] MEDS ORDERED: FAMOTIDINE 20 MG INJ IV STA (01:14)
[2017-03-13] MEDS ORDERED: HYDROmorphONE 1 MG/ML SYG IV STA (01:14)
[2017-03-13] MEDS ORDERED: METOCLOPRAMIDE 10 MG INJ IV STA (01:14)
[2017-03-13] MEDS ORDERED: SOD CHLORIDE 0.9% 1,000 ML IV STA (01:14)
[2017-03-13 02:02] LABS: BASOPHIL # 0.1 10^3/ul (0.0-0.1); BASOPHILS % 0.8 % (0.0-2.0); EOSINOPHILS # 0.3 10^3/ul (0.0-0.5); EOSINOPHILS % 2.6 % (0.0-7.0); HEMOGLOBIN 13.3 g/dl (14.0-18.0); LYMPHOCYTES # 2.6 10^3/ul (0.8-2.9); MEAN CORPUSCULAR HEMOGLOBIN 32.2 pg (29.0-33.0); MEAN CORPUSCULAR HGB CONC 34.1 g/dl (32.0-37.0); MEAN CORPUSCULAR VOLUME 94.4 fl (82.0-101.0); MEAN PLATELET VOLUME 10.2 fl (7.4-10.4); MONOCYTE # 0.9 10^3/ul (0.3-0.9); MONOCYTES % 9.5 % (0.0-11.0); NEUTROPHIL # 6.1 10^3/ul (1.6-7.5); NEUTROPHILS % 60.9 % (39.0-77.0); PLATELET COUNT 261 10^3/UL (140-415); RED BLOOD COUNT 4.13 10^6/ul (4.70-6.10); RED CELL DISTRIBUTION WIDTH 13.2 % (11.5-14.5); WHITE BLOOD COUNT 9.9 10^3/ul (4.8-10.8)
[2017-03-13 02:14] VITALS: TEMP 98.3
[2017-03-13 02:18] LABS: ADD UMIC NO; UR ASCORBIC ACID NEGATIVE (NEGATIVE); UR BILIRUBIN (Dip) NEGATIVE (NEGATIVE); UR BLOOD (Dip) NEGATIVE (NEGATIVE); UR CLARITY CLEAR (CLEAR); UR COLOR STRAW (YELLOW); UR GLUCOSE (Dip) NEGATIVE (NEGATIVE); UR KETONES (Dip) NEGATIVE (NEGATIVE); UR LEUKOCYTE ESTERASE (Dip) NEGATIVE Leu/ul (NEGATIVE); UR NITRITE (Dip) NEGATIVE (NEGATIVE); UR SPECIFIC GRAVITY (Dip) 1.009 (1.003-1.030); UR TOTAL PROTEIN (Dip) NEGATIVE (NEGATIVE); UR UROBILINOGEN (Dip) NEGATIVE (NEGATIVE)
[2017-03-13 02:23] LABS: ALBUMIN/GLOBULIN RATIO 1.29; BILIRUBIN,INDIRECT 0.1 mg/dl (0-1.1); BILIRUBIN,TOTAL 0.1 mg/dl (0.2-1.3); CALCIUM 8.4 mg/dl (8.4-10.2); CREATININE 0.82 mg/dl (0.61-1.24); POTASSIUM 4.1 mmol/L (3.5-5.1); TOTAL PROTEIN 7.1 g/dl (6.1-8.1)
[2017-03-13] MEDS ORDERED: ONDANSETRON 4 MG INJ IV STA (04:45)
--- NOTE | 2017-03-13 04:50 | ERD ---
ER Documentation Chief Complaint Chief Complaint left abd pain since yesterday, states has hx of chronic pancreatitis HPI 31-year-old male with a past medical history of chronic pancreatitis, status post multiple abdominal surgeries including distal pancreatectomy, splenectomy, and cholecystectomy, presenting with chief complaint of nonexertional, nonradiating epigastric abdominal pain as well as multiple episodes of nonbloody , bilious emesis that has been going on for the past 2 weeks. He was seen here on February 22 and admitted for 1 day. However he left because he states no doctors were seeing him. He states his symptoms have worsened over the past 2 days. He is unable to eat or drink. He vomits every time he tries to drink anything. He is having normal bowel movements. No fevers or chills. He does endorse taking alcohol last night, but states he knows he is not supposed to. ROS All systems reviewed and are negative except as per history of present illness. Medications Home Meds Active Scripts Electrolyte,Oral (Pedialyte) 1,000 Ml Solution, 100 ML PO Q6 Y for VOMITTING, # 1000 ML Prov:ANGELO HOBBS PA-C 12/07/16 Lorazepam* (Lorazepam*) 1 Mg Tablet, 1 MG PO Q8 Y for ANXIETY, #30 TAB Prov:MARTIN CHEN NP 07/22/16 Famotidine* (Famotidine*) 40 Mg Tablet, 40 MG PO HS, #30 TAB Prov:GLENN LOPEZ MD 07/16/16 Reported Medications Hydrocodone/Acetaminophen ([place] 10-325 Tablet) 1 Each Tablet, 1 EACH PO TID Y for PAIN, TAB 07/16/16 Lekpfl-Chdiewnj-Pjurydf* (Sharon MICHAUD* 24,000) 24,000 L-76,000-120,000 Unit Capsule., 1 CAP PO WITH MEALS, CAP 07/21/14 Allergies Allergies: Coded Allergies: morphine (Unverified Allergy, Intermediate, itchy, hives, 03/13/17) HAS TAKEN NORCO WITH NO REACTION PMhx/Soc History of Surgery: Yes (PT REPORTS [place], SPLENECTOMY & PANCREATIC SURG.) Anesthesia Reaction: No Hx Neurological Disorder: No Hx Respiratory Disorders: No Hx Cardiac Disorders: No Hx Psychiatric Problems: Yes (anxiety) Hx Miscellaneous Medical Probl: No Hx Alcohol Use: Yes Hx Substance Use: Yes Hx Tobacco Use: No Smoking Status: Unknown if ever smoked FmHx Family History: No diabetes Physical Exam Vitals Vital Signs Date Time Temp Pulse Resp B/P Pulse Ox O2 Delivery O2 Flow Rate FiO2 03/13/17 04:06 51 112/72 97 Room Air 03/13/17 03:00 49 15 110/69 98 Room Air 03/13/17 02:14 98.3 52 15 98/52 98 Room Air 03/13/17 01:04 98.2 49 17 103/64 98 Room Air 03/13/17 00:45 97.7 55 20 109/54 99 Physical Exam Const: Chronically ill-appearing, very thin, in no apparent distress Head: Atraumatic Eyes: Normal Conjunctiva ENT: dry mucous membranes Neck: Full range of motion..~ No meningismus. Resp: Clear to auscultation bilaterally Cardio: Bradycardic, regular rhythm, no murmurs. Cap refill less than 2 seconds Abd: Soft, concave abdomen, diffusely tender with no rebound or guarding. Normal bowel sounds Skin: No petechiae or rashes Back: No midline or flank tenderness Ext: No cyanosis, or edema Neur: Awake and alert Psych: Normal Mood and Affect Result Diagram: 03/13/173 03/13/173 Results 24 hrs Laboratory Tests Test 03/13/17 01:20 03/13/17 01:33 Urine Color STRAW Urine Clarity CLEAR Urine pH 6.0 Urine Specific [place] 1.009 Urine Ketones NEGATIVEmg/dL Urine Nitrite NEGATIVEmg/dL Urine Bilirubin NEGATIVEmg/dL Urine Urobilinogen NEGATIVEmg/dL Urine Leukocyte Esterase NEGATIVELeu/ul Urine Hemoglobin NEGATIVEmg/dL Urine Glucose NEGATIVEmg/dL Urine Total Protein NEGATIVEmg/dl White Blood Count 9.910^3/ul Red Blood Count 4.1310^6/ul Hemoglobin 13.3g/dl Hematocrit 39.0% Mean Corpuscular Volume 94.4fl Mean Corpuscular Hemoglobin 32.2pg Mean Corpuscular Hemoglobin Concent 34.1g/dl Red Cell Distribution Width 13.2% Platelet Count 01649^3/UL Mean Platelet Volume 10.2fl Neutrophils % 60.9% Lymphocytes % 26.0% Monocytes % 9.5% Eosinophils % 2.6% Basophils % 0.8% Nucleated Red Blood Cells % 0.0/100WBC Neutrophils # 6.110^3/ul Lymphocytes # 2.610^3/ul Monocytes # 0.910^3/ul Eosinophils # 0.310^3/ul Basophils # 0.110^3/ul Nucleated Red Blood Cells # 0.010^3/ul Sodium Level 146mmol/L Potassium Level 4.1mmol/L Chloride Level 106mmol/L Carbon Dioxide Level 27mmol/L Anion Gap 17 Blood Urea Nitrogen 17mg/dl Creatinine 0.82mg/dl Glucose Level 76mg/dl Calcium Level 8.4mg/dl Total Bilirubin 0.1mg/dl Direct Bilirubin 0.00mg/dl Indirect Bilirubin 0.1mg/dl Aspartate Amino Transf (AST/SGOT) 22IU/L Alanine Aminotransferase (ALT/SGPT) 31IU/L Alkaline Phosphatase 58IU/L Total Protein 7.1g/dl Albumin 4.0g/dl Globulin 3.10g/dl Albumin/Globulin Ratio 1.29 Lipase 253U/L Ethyl Alcohol Level 77.0mg/dl Current Medications Medications (Trade) Dose Ordered Sig/Desiree Route PRN Reason Start Time Stop Time Status Last Admin Dose Admin Sodium Chloride (NS) 1,000 ml @ 1,000 mls/hr Q1H STAT IV 03/13/17 01:14 03/13/17 02:13 DC 03/13/17 01:58 Hydromorphone HCl (Dilaudid) 1 mg ONCE STAT IV 03/13/17 01:14 03/13/17 01:26 DC 03/13/17 03:35 Metoclopramide HCl (Reglan) 10 mg ONCE STAT IV 03/13/17 01:14 03/13/17 01:26 DC 03/13/17 03:35 Famotidine (Pepcid Iv) 20 mg ONCE STAT IV 03/13/17 01:14 03/13/17 01:26 DC 03/13/17 03:35 Procedures/MDM CBC: no anemia or evidence of infection CMP: Mild hypernatremia, no evidence of significant electrolyte abnormality, renal failure, hypoglycemia, liver failure, or biliary obstruction Lipase: no evidence of pancreatitis UA: no evidence of infection MDM Patient is presenting with acute on chronic abdominal pain and nausea and vomiting. Vitals are stable. Patient however appears ill on exam and in significant distress. I have a low suspicion for bowel obstruction, perforated viscus, colitis, or hepatitis. He may have acute on chronic pancreatitis, even though his lipase is within normal limits. He was treated with IV fluids, IV antiemetics and analgesics with minimal relief of his symptoms. He did not tolerate his p.o. challenge. I do not believe the patient is stable for discharge at this time and will admission for intractable abdominal pain, nausea , and vomiting. Accepting Care Team: Current data and ongoing care discussed. Time: Time of admission Primary Provider: Hiro Consulting: none Outstanding Data: none Departure Diagnosis: Primary Impression: Generalized abdominal pain Additional Impression: Intractable nausea and vomiting Vomiting type: cyclical vomiting Qualified Code: G43.A1 - Intractable cyclical vomiting with nausea Condition: Stable LIZZY CARMEN MD Mar 13, 2017 04:50
[2017-03-13] MEDS ORDERED: ACETAMINOPHEN 325 MG TAB PO PRN ×2 (05:30→06:00)
[2017-03-13] MEDS ORDERED: ONDANSETRON 4 MG INJ IV PRN ×2 (05:30→06:00)
[2017-03-13] MEDS ORDERED: NACL 0.9% 3 ML SYG IV SCH (06:00)
[2017-03-13] MEDS ORDERED: LORAZEPAM 2 MG INJ IV PRN (06:00)
[2017-03-13] MEDS: SOD CHLORIDE 0.9% 1,000 ML IV SCH ×2 (07:31→11:48)
[2017-03-13] MEDS: CHLORDIAZEPOXIDE 25 MG CAP PO SCH ×2 (07:32→09:29)
[2017-03-13] MEDS: morphine 2 MG INJ IV PRN ×2 (07:49→11:49)
[2017-03-13] MEDS: CREON (24K-76K-120K) 1 CAP PO SCH ×2 (08:09→11:30)
[2017-03-13 08:15] LABS: CHOL/HDL RATIO 2.1 RATIO; MAGNESIUM 1.7 mg/dl (1.7-2.5)
[2017-03-13 08:30] VITALS: BP 145/60; RESP 18
[2017-03-13 08:45] VITALS: PULSE 45
[2017-03-13 08:45] LABS: THYROID STIMULATING HORMONE 0.71 MIU/L (0.465-4.680)
[2017-03-13 08:58] VITALS: BP 145/68; PULSE 53; RESP 18; Ht 180.3 cm; Wt 54.2 kg
[2017-03-13] MEDS ORDERED: MULTIVITAMINS 10 ML, THIAMINE 100 MG in SOD CHLORIDE 0.9% 1,000 ML IVPB SCH (09:00)
[2017-03-13] MEDS ORDERED: HYDROCODONE/APAP (7.5/325) TAB PO PRN (10:00)
--- NOTE | 2017-03-13 13:05 | HP ---
Date/Time of Note Date/Time of Note DATE: 03/13/17 TIME: 13:05 Assessment/Plan VTE Prophylaxis VTE Prophylaxis Intervention: SCD's Lines/Catheters IV Catheter Type (from Nrs): Peripheral IV Assessment/Plan Chief Complaint/Hosp Course 1. Acute on chronic abdominal pain with associated multiple episodes of vomiting. The patient will be provided with adequate pain control. IV Dilaudid will be avoided because of significant bradycardia. 2. Chronic pain. The patient will be provided with adequate pain control. 3. Anxiety disorder. Continue PRN anxiolytics. 4. Sinus bradycardia. The patient remains asymptomatic. The patient was also noticed to have sinus bradycardia on his previous admission. At that time, his IV Dilaudid was discontinued and the patient left the hospital AGAINST MEDICAL ADVICE at that time. Will avoid AV keaton blocking agents. Will avoid strong IV opioids. Plan: The patient will be admitted to inpatient medical surgical floor. The patient will be started on a low-cholesterol diet. The patient will be started on DVT prophylaxis. The patient will remain a full code. Activities will be as tolerated. The rest of the patient's management will be based on the clinical course and the results of diagnostic studies. Based on the patient's clinical presentation, he most probably requires at least 2 midnights' stay for further management and evaluation of his clinical presentation. The case and management of this patient was fully discussed with Dr. Abreu. Problems: HPI/ROS Admit Date/Time Admit Date/Time Mar 13, 2017 at 05:31 Hx of Present Illness Reason for admission: Abdominal pain, vomiting. This is a 31-year-old male with a past medical history of chronic pancreatitis, status post multiple abdominal surgeries including distal pancreatectomy, splenectomy, and cholecystectomy, who came to the emergency room with chief complaint of nonexertional, nonradiating epigastric abdominal pain as well as multiple episodes of nonbloody, bilious emesis. The patient denied any diarrhea , chest pain, headache, dyspnea, hematuria, or pyuria. The patient verbalized that he drank alcohol on 03/12/2017 that exacerbated his pain. The patient's serum lipase level was within normal limits. The patient was treated with IV analgesics in the emergency room. ROS Constitutional: nausea Eyes: no complaints ENT: no complaints Respiratory: no complaints Cardiovascular: no complaints Gastrointestinal: nausea, pain, vomiting Genitourinary: no complaints Musculoskeletal: no complaints Skin: no complaints Neurologic: no complaints Endocrine: no complaints Lymphatic: no complaints Psychological: anxiety Immunologic: no complaints PMH/Family/Social Past Medical History Alcoholic pancreatitis. ETOH abuse. Anxiety. Chronic pain. 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 Past Surgical History Distal pancreatectomy, splenectomy, distal pancreatic jejunostomy, cholecystectomy. Past Surgical Hx: cholecystectomy Social History Alcohol Use: occasionally Smoking Status: Current every day smoker Drug Use: marijuana Exam/Review of Systems Vital Signs Vitals Vital Signs Date Time Temp Pulse Resp B/P Pulse Ox O2 Delivery O2 Flow Rate FiO2 03/13/17 08:58 97.9 53 18 145/68 100 Room Air Exam Exam GENERAL: This is a well-built, well-nourished male lying in bed, in no apparent distress. HEENT: Head normocephalic and atraumatic. Eyes: Anicteric sclerae. Conjunctivae clear. ENT: Nasal septum is midline. Oral mucosa is dry. NECK: Supple. No JVD noticed. RESPIRATORY: Bilaterally clear to auscultation. No adventitious breath sounds. No use of accessory muscles of respiration. CARDIAC: Regular rate and rhythm. No murmurs. Bradycardia. ABDOMEN: Multiple surgical scars on the abdomen. Diffuse abdominal tenderness. EXTREMITIES: No cyanosis, no clubbing, no edema. Peripheral pulses palpable. NEUROLOGIC: The patient is awake, alert and oriented. Cranial nerves are grossly intact. Labs Result Diagram: 03/13/1713203/13/17132 Medications Medications Current Medications Famotidine 40 mg 40 mg HS PO ; Start 03/13/17 at 21:00 Sodium Chloride (NS) 1,000 ml @ 150 mls/hr Q6H40M IV Last administered on 03/13 07:31; Admin Dose 150 MLS/HR; Start 03/13/17 at 05:42 Ondansetron HCl (Zofran Inj) 4 mg Q6H PRN IV NAUSEA AND/OR VOMITING; Start 03/13/17 at 06:00 Acetaminophen (Tylenol Tab) 650 mg Q6H PRN PO PAIN LEVEL 1-3 OR FEVER; Start 03/13/17 at 06:00 Morphine Sulfate (morphine) 2 mg Q4H PRN IV SEVERE PAIN LEVEL 7-10 Last administered on 03/13/17 11:49; Admin Dose 2 MG; Start 03/13/17 at 06:00 Lorazepam (Ativan) 1 mg Q4 PRN IV AGITATION/ANXIETY; Start 03/13/17 at 06:00 Chlordiazepoxide (Librium) 50 mg TID PO Last administered on 03/13/17 09:29; Admin Dose 50 MG; Start 03/13/17 at 06:00; Stop 03/14/17 at 05:59 Chlordiazepoxide (Librium) 25 mg QID PO ; Start 03/14/17 at 06:00; Stop at 05:59 Chlordiazepoxide 25 mg 25 mg TID PO ; Start 03/15/17 at 06:00; Stop 03/16/17 at 05:59 Multivitamins/ Thiamine HCl/ Sodium Chloride (Mvi Adult/ Vitamin B1/NS) 1,011 ml @ 125 mls/hr DAILY@09 IVPB Last administered on 03/13/17 09:25; Admin Dose 125 MLS/HR; Start 03/13/17 at 09:00 Acetaminophen/ Hydrocodone Bitart ([place] (7.5-325)) 1 tab Q4H PRN PO Pain; Start 03/13/17 at 10:00 MARTIN CHEN NP Mar 13, 2017 13:05
--- NOTE | 2017-03-13 13:05 | DS ---
Date/Time of Note Date/Time of Note DATE: 03/13/17 TIME: 13:05 Discharge Summary Admission/Discharge Info Admit Date/Time Mar 13, 2017 at 05:31 Discharge Date/Time Mar 13, 2017 at 12:43 LEFT AGAINST MEDICAL ADVICE Discharge Diagnosis 1. Acute on chronic abdominal pain with associated multiple episodes of vomiting. 2. Chronic pain. 3. Anxiety disorder. 4. Sinus bradycardia. 5. 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 Patient Condition: Fair Hx of Present Illness Reason for admission: Abdominal pain, vomiting. This is a 31-year-old male with a past medical history of chronic pancreatitis, status post multiple abdominal surgeries including distal pancreatectomy, splenectomy, and cholecystectomy, who came to the emergency room with chief complaint of nonexertional, nonradiating epigastric abdominal pain as well as multiple episodes of nonbloody, bilious emesis. The patient denied any diarrhea , chest pain, headache, dyspnea, hematuria or pyuria. The patient verbalized that he drank alcohol on 03/12/2017 that exacerbated his pain. The patient's serum lipase level was within normal limits. The patient was treated with IV analgesics in the emergency room. Hospital Course The patient was admitted to inpatient setting. The patient was provided with adequate pain control. However, strong IV opioids were avoided because of underlying sinus bradycardia. The patient requested for IV Dilaudid. He was informed about the consequences of using strong IV opioids because of the possibility of worsening sinus bradycardia. Therefore, the patient wanted to leave the hospital AGAINST MEDICAL ADVICE. The patient was informed about the consequences of leaving the hospital AGAINST MEDICAL ADVICE including the possibility of . Nevertheless, the patient wanted to leave the hospital AGAINST MEDICAL ADVICE. No discharge planning was done since patient left the hospital AGAINST MEDICAL ADVICE. Case discussed with Dr. Abreu. Home Meds Active Scripts Electrolyte,Oral (Pedialyte) 1,000 Ml Solution, 100 ML PO Q6 Y for VOMITTING, # 1000 ML Prov:ANGELO HOBBS PA-C 12/07/16 Lorazepam* (Lorazepam*) 1 Mg Tablet, 1 MG PO Q8 Y for ANXIETY, #30 TAB Prov:MARTIN CHEN NP 07/22/16 Famotidine* (Famotidine*) 40 Mg Tablet, 40 MG PO HS, #30 TAB Prov:GLENN LOPEZ MD 07/16/16 Reported Medications Hydrocodone/Acetaminophen ([place] 10-325 Tablet) 1 Each Tablet, 1 EACH PO TID Y for PAIN, TAB 07/16/16 Xptewp-Xzzuplji-Xukmpyn* (Creon DR* 24,000) 24,000 L-76,000-120,000 Unit Capsule.dr, 1 CAP PO WITH MEALS, CAP 07/21/14 Follow-up Plan No flow follow-up plan was provided since the patient left the hospital his medical advice. Primary Care Provider John Hilliard MD Time spent on discharge: < 30 minutes Pending Labs Laboratory Tests Test 03/13/17 01:20 03/13/17 01:33 Urine Color STRAW (YELLOW) Urine Clarity CLEAR (CLEAR) Urine pH 6.0 (5.0-9.0) Urine Specific [place] 1.009 (1.003-1.030) Urine Ketones NEGATIVEmg/dL (NEGATIVE) Urine Nitrite NEGATIVEmg/dL (NEGATIVE) Urine Bilirubin NEGATIVEmg/dL (NEGATIVE) Urine Urobilinogen NEGATIVEmg/dL (NEGATIVE) Urine Leukocyte Esterase NEGATIVELeu/ul (NEGATIVE) Urine Hemoglobin NEGATIVEmg/dL (NEGATIVE) Urine Glucose NEGATIVEmg/dL (NEGATIVE) Urine Total Protein NEGATIVEmg/dl (NEGATIVE) White Blood Count 9.910^3/ul (4.8-10.8) Red Blood Count 4.1310^6/ul (4.70-6.10) Hemoglobin 13.3g/dl (14.0-18.0) Hematocrit 39.0% (42.0-52.0) Mean Corpuscular Volume 94.4fl (82.0-101.0) Mean Corpuscular Hemoglobin 32.2pg (29.0-33.0) Mean Corpuscular Hemoglobin Concent 34.1g/dl (32.0-37.0) Red Cell Distribution Width 13.2% (11.5-14.5) Platelet Count 17249^3/UL (140-415) Mean Platelet Volume 10.2fl (7.4-10.4) Neutrophils % 60.9% (39.0-77.0) Lymphocytes % 26.0% (15.0-51.0) Monocytes % 9.5% (0.0-11.0) Eosinophils % 2.6% (0.0-7.0) Basophils % 0.8% (0.0-2.0) Nucleated Red Blood Cells % 0.0/100WBC (0.0-0.0) Neutrophils # 6.110^3/ul (1.6-7.5) Lymphocytes # 2.610^3/ul (0.8-2.9) Monocytes # 0.910^3/ul (0.3-0.9) Eosinophils # 0.310^3/ul (0.0-0.5) Basophils # 0.110^3/ul (0.0-0.1) Nucleated Red Blood Cells # 0.010^3/ul (0.0-0.0) Sodium Level 146mmol/L (135-144) Potassium Level 4.1mmol/L (3.5-5.1) Chloride Level 106mmol/L (97-110) Carbon Dioxide Level 27mmol/L (21-31) Anion Gap 17 (8-16) Blood Urea Nitrogen 17mg/dl (7-20) Creatinine 0.82mg/dl (0.61-1.24) Glucose Level 76mg/dl (70-220) Hemoglobin A1c 5.5% (0-5.9) Calcium Level 8.4mg/dl (8.4-10.2) Magnesium Level 1.7mg/dl (1.7-2.5) Total Bilirubin 0.1mg/dl (0.2-1.3) Direct Bilirubin 0.00mg/dl (0.00-0.20) Indirect Bilirubin 0.1mg/dl (0-1.1) Aspartate Amino Transf (AST/SGOT) 22IU/L (15-46) Alanine Aminotransferase (ALT/SGPT) 31IU/L (13-69) Alkaline Phosphatase 58IU/L (42-121) Total Protein 7.1g/dl (6.1-8.1) Albumin 4.0g/dl (3.3-4.9) Globulin 3.10g/dl (1.3-3.2) Albumin/Globulin Ratio 1.29 Triglycerides Level 116mg/dl (0-149) Cholesterol Level 102mg/dl (100-200) LDL Cholesterol, Calculated 31mg/dl HDL Cholesterol 48mg/dl (28-63) Cholesterol/HDL Ratio 2.1RATIO Lipase 253U/L (23-300) Thyroid Stimulating Hormone (TSH) 0.710MIU/L (0.465-4.680) Ethyl Alcohol Level 77.0mg/dl MARTIN CHEN NP Mar 13, 2017 13:05
[2017-03-13] MEDS ORDERED: FAMOTIDINE 20 MG TAB PO SCH (21:00)
[2017-03-14] MEDS ORDERED: CHLORDIAZEPOXIDE 25 MG CAP PO SCH (06:00)
[2017-03-15] MEDS ORDERED: CHLORDIAZEPOXIDE 25 MG CAP PO SCH (06:00)
== END 2017-03-13 12:45 | disposition left against medical advice (07) ==
LOC: E/R 00:37 → PP2 05:31
PROVIDERS: ADMIT Family Medicine; ATTEND Family Medicine
DX: R10.13 Epigastric pain (principal); G89.29 Other chronic pain; R11.2 Nausea with vomiting, unspecified; F41.9 Anxiety disorder, unspecified; R00.1 Bradycardia, unspecified; Z53.21 Procedure and treatment not carried out due to patient leaving prior to being seen by health care provider; Z90.81 Acquired absence of spleen; Z90.410 Acquired total absence of pancreas
CPT/HCPCS: 36415; 80053; 80061; 80306; 81003; 83036; 83690; 83735; 84443; 85025; 96374; 96375; J1170; J2270; J2405; J2765; J3411; J7030; Z7500; Z7502; Z7610; G0378

== ENCOUNTER 2017-03-18 23:32 | Emergency (ER) | payer OTHER ==
[~2017-03-18] VITALS: Ht 180.3 cm; Wt 54.2 kg
[2017-03-18 23:44] VITALS: Ht 180.3 cm; Wt 54.2 kg
[2017-03-19] MEDS ORDERED: ONDANSETRON 4 MG INJ IV STA (00:39)
[2017-03-19] MEDS ORDERED: SOD CHLORIDE 0.9% 1,000 ML IV STA (00:39)
[2017-03-19] MEDS ORDERED: morphine 2 MG INJ IV STA (00:39)
[2017-03-19 01:03] LABS: BASOPHIL # 0.1 10^3/ul (0.0-0.1); BASOPHILS % 0.4 % (0.0-2.0); HEMATOCRIT 38.1 % (42.0-52.0); HEMOGLOBIN 13.2 g/dl (14.0-18.0); LYMPHOCYTES # 1.8 10^3/ul (0.8-2.9); LYMPHOCYTES % 15.3 % (15.0-51.0); MEAN CORPUSCULAR HEMOGLOBIN 32.2 pg (29.0-33.0); MEAN CORPUSCULAR HGB CONC 34.6 g/dl (32.0-37.0); MEAN CORPUSCULAR VOLUME 92.9 fl (82.0-101.0); MEAN PLATELET VOLUME 9.6 fl (7.4-10.4); MONOCYTE # 0.7 10^3/ul (0.3-0.9); MONOCYTES % 6.1 % (0.0-11.0); NEUTROPHILS % 77.9 % (39.0-77.0); PLATELET COUNT 289 10^3/UL (140-415); RED CELL DISTRIBUTION WIDTH 13.9 % (11.5-14.5); WHITE BLOOD COUNT 11.6 10^3/ul (4.8-10.8)
[2017-03-19 01:21] LABS: BILIRUBIN,INDIRECT 0.1 mg/dl (0-1.1); CALCIUM 8.9 mg/dl (8.4-10.2); CREATININE 0.68 mg/dl (0.61-1.24); POTASSIUM 3.9 mmol/L (3.5-5.1)
[2017-03-19 01:22] LABS: ALBUMIN 3.7 g/dl (3.3-4.9); ALBUMIN/GLOBULIN RATIO 1.15; BILIRUBIN,TOTAL 0.1 mg/dl (0.2-1.3); TOTAL PROTEIN 6.9 g/dl (6.1-8.1)
--- NOTE | 2017-03-19 01:59 | ERD ---
ER Documentation Chief Complaint Chief Complaint Abdominal pain that radiates to back,n/v x 2 days HPI Patient is a 31-year-old male with a past medical history of chronic pancreatitis, status post multiple abdominal surgeries including a distal pancreatomy, splenectomy, cholecystectomy, who presents to the ED for concerns of abdominal pain 2 days. Patient describes the pain to be notes left upper quadrant, radiating to his back. Patient reports multiple episodes of nonbloody , bilious emesis which started today. Patient admits to dry heaving. Patient denies any fevers or chills. Patient states last night he did have two beers to drink. Patient does state that he knows the symptoms are worse when drinking. Patient reports normal bowel movements. Patient denies any diarrhea , dysuria, urinary frequency, hematuria. Patient denies any fevers or chills. Patient is requesting Dilaudid. ROS All systems reviewed and are negative except as per history of present illness. Medications Home Meds Active Scripts Acetaminophen* (Tylophen*) 500 Mg Capsule, 1 CAP PO Q6H Y for PAIN AND OR ELEVATED TEMP, #20 CAP Prov:MEMO JEFFERSON PA-C 03/19/17 Ondansetron (Ondansetron Odt) 4 Mg Tab.rapdis, 4 MG PO Q6H Y for NAUSEA AND/OR VOMITING, #10 TAB Prov:MEMO JEFFERSON PA-C 03/19/17 Electrolyte,Oral (Pedialyte) 1,000 Ml Solution, 100 ML PO Q6 Y for VOMITTING, # 1000 ML Prov:ANGELO HOBBS PA-C 12/07/16 Lorazepam* (Lorazepam*) 1 Mg Tablet, 1 MG PO Q8 Y for ANXIETY, #30 TAB Prov:MARTIN CHEN NP 07/22/16 Famotidine* (Famotidine*) 40 Mg Tablet, 40 MG PO HS, #30 TAB Prov:GLENN LOPEZ MD 07/16/16 Reported Medications Hydrocodone/Acetaminophen ([place] 10-325 Tablet) 1 Each Tablet, 1 EACH PO TID Y for PAIN, TAB 07/16/16 Rwokpd-Jkjclyuc-Bxgwxlt* (Sharon MICHAUD* 24,000) 24,000 L-76,000-120,000 Unit Capsule., 1 CAP PO WITH MEALS, CAP 3/15/15 Allergies Allergies: Coded Allergies: morphine (Unverified Allergy, Intermediate, itchy, hives, 03/13/17) HAS TAKEN NORCO WITH NO REACTION PMhx/Soc History of Surgery: Yes (Partial pancreotomy 2014, splenectomy 2015, cholecystectomy (unk)) Anesthesia Reaction: No Hx Neurological Disorder: No Hx Respiratory Disorders: No Hx Cardiac Disorders: No Hx Psychiatric Problems: Yes (Anxiety) Hx Miscellaneous Medical Probl: No Hx Alcohol Use: Yes (occasional) Hx Substance Use: Yes (marijuana) Hx Tobacco Use: No Smoking Status: Former smoker Physical Exam Vitals Vital Signs Date Time Temp Pulse Resp B/P Pulse Ox O2 Delivery O2 Flow Rate FiO2 03/18/17 23:44 98.2 71 20 141/86 100 Physical Exam GENERAL: Thin in appearance. Appears in no acute distress. HEAD: Normocephalic, atraumatic. EYES: Pupils are equally reactive bilaterally. EOMs grossly intact. No conjunctival erythema. ENT: Moist mucous membranes. No uvula deviation. No kissing tonsils. NECK: Supple. No meningismus. Normal range of motion of the neck. LUNG: Clear to auscultation bilaterally. No rhonchi, wheezing, rales or coarse breath sounds. HEART: Regular rate and rhythm. No murmurs, rubs or gallops. ABDOMEN: Soft, and nondistended. Diffuse tenderness noted in all 4 quadrants. Positive bowel sounds in all four quadrants. No rebound tenderness, no guarding. (-) McBurney's point tenderness. No CVA tenderness. BACK: No midline tenderness. EXTREMITIES: Equal pulses bilaterally. No peripheral clubbing, cyanosis or edema. No unilateral leg swelling. NEUROLOGIC: Alert and oriented. Moving all four extremities without any difficulty. Normal speech. Steady gait. SKIN: Normal color. Warm and dry. No rashes or lesions. Result Diagram: 03/19/175 03/19/17 0045 Results 24 hrs Laboratory Tests Test 03/19/17 00:45 White Blood Count 11.610^3/ul Red Blood Count 4.1010^6/ul Hemoglobin 13.2g/dl Hematocrit 38.1% Mean Corpuscular Volume 92.9fl Mean Corpuscular Hemoglobin 32.2pg Mean Corpuscular Hemoglobin Concent 34.6g/dl Red Cell Distribution Width 13.9% Platelet Count 68313^3/UL Mean Platelet Volume 9.6fl Neutrophils % 77.9% Lymphocytes % 15.3% Monocytes % 6.1% Eosinophils % 0.0% Basophils % 0.4% Nucleated Red Blood Cells % 0.0/100WBC Neutrophils # 9.010^3/ul Lymphocytes # 1.810^3/ul Monocytes # 0.710^3/ul Eosinophils # 0.010^3/ul Basophils # 0.110^3/ul Nucleated Red Blood Cells # 0.010^3/ul Sodium Level 146mmol/L Potassium Level 3.9mmol/L Chloride Level 110mmol/L Carbon Dioxide Level 27mmol/L Anion Gap 13 Blood Urea Nitrogen 10mg/dl Creatinine 0.68mg/dl Glucose Level 90mg/dl Calcium Level 8.9mg/dl Total Bilirubin 0.1mg/dl Direct Bilirubin 0.00mg/dl Indirect Bilirubin 0.1mg/dl Aspartate Amino Transf (AST/SGOT) 24IU/L Alanine Aminotransferase (ALT/SGPT) 35IU/L Alkaline Phosphatase 56IU/L Total Protein 6.9g/dl Albumin 3.7g/dl Globulin 3.20g/dl Albumin/Globulin Ratio 1.15 Lipase 54U/L Current Medications Medications (Trade) Dose Ordered Sig/Desiree Route PRN Reason Start Time Stop Time Status Last Admin Dose Admin Sodium Chloride (NS) 1,000 ml @ 1,000 mls/hr Q1H STAT IV 03/19/17 00:39 03/19/17 01:38 DC 03/19/17 01:06 Morphine Sulfate (morphine) 2 mg ONCE STAT IV 03/19/17 00:39 03/19/17 00:40 DC 03/19/17 01:06 Ondansetron HCl (Zofran Inj) 4 mg ONCE STAT IV 03/19/17 00:39 03/19/17 00:40 DC 03/19/17 01:06 Procedures/MDM ED COURSE: The patient was stable throughout ED course. I kept the patient and/or family informed of laboratory and diagnostic imaging results throughout the ED course. MEDICATIONS GIVEN: Morphine, Zofran Patient tolerated medication well with no adverse reactions. MEDICAL DECISION MAKING: Patient is a 31-year-old male with a past medical history of chronic pancreatitis, status post multiple abdominal surgeries including a distal pancreatomy, splenectomy, cholecystectomy, who presents to the ED for concerns of abdominal pain 2 days. No signs were reviewed. Patient was afebrile. Patient was not hypoxic. Patient was hemodynamically stable. Abdominal exam revealed diffuse tenderness in all 4 quadrants. Patient was noted to have a white count of 11.6, myoglobin of 13.2, hematocrit of 38. CMP showed no evidence of severe electrolyte abnormalities, severe acidosis, alkalosis, renal failure, or liver disease. Lipase showed no evidence of acute pancreatitis. Patient was unable to provide a urine sample. Unable to rule out UTI, pyelonephritis, nephrolithiasis, my suspicion is low. Patient originally requested Dilaudid given that he had an allergy to morphine. Asking the patient what his allergy was, patient stated he felt nauseous seeking morphine. I explained to the patient that nausea is not a true allergy rather it is a side effect.. When I told the patient that I was unable to provide him with Dilaudid, he stated that he did not have an allergy to morphine and he would take the morphiine. Patient was given 2 mg of morphine. Patient was noted to be resting comfortably throughout the ED course. Patient started to request additional doses of morphine despite originally saying he had an allergy. My supervising physician Dr. Gutierrez also spoke with the patient in regards to his presentation and blood work findings. Patient has no acute abdominal findings. We do feel that the patient has a suspicion for drug- seeking behavior. At this time, patient's presentation is most consistent with chronic abdominal pain secondary to chronic pancreatitis. Patient was advised to refrain from any alcohol use. Low suspicion for acute pancreatitis, ACS, DKA , bowel obstruction, bowel perforation, diverticulitis, appendicitis, testicular torsion. PRESCRIPTIONS: Tylenol, Zofran DISCHARGE: At this time, patient is stable for discharge and outpatient management. Patient was given a copy of all imaging studies and blood work obtained. I have instructed the patient to follow-up with his/her primary care physician in 1-2 days. I have instructed the patient to promptly return to the ER at any time for any new or worsening symptoms including increased pain, nausea, vomiting, diarrhea, fever, weakness or LOC. The patient and/or family expressed understanding of and agreement with this plan. All questions were answered. Home care instructions were provided. Disclaimer: Inadvertent spelling and grammatical errors are likely due to EHR/ dictation software use and do not reflect on the overall quality of patient care. Also, please note that the electronic time recorded on this note does not necessarily reflect the actual time of the patient encounter. Departure Diagnosis: Primary Impression: Abdominal pain Abdominal location: unspecified location Qualified Code: R10.9 - Abdominal pain, unspecified abdominal location Additional Impressions: Chronic pancreatitis Pancreatitis type: unspecified pancreatitis type Qualified Code: K86.1 - Chronic pancreatitis, unspecified pancreatitis type Drug-seeking behavior Patient Instructions: Abdominal Pain, Chronic Pancreatitis Additional Instructions: Call your primary care doctor TOMORROW for an appointment during the next 1-2 days.See the doctor sooner or return here if your condition worsens before your appointment time. MEMO JEFFERSON PA-C Mar 19, 2017 01:59
[2017-03-19] MEDS ORDERED: ONDA4TAB14 PO (02:17)
[2017-03-19] MEDS ORDERED: ACET500C5 PO (02:18)
== END 2017-03-19 02:28 | disposition home or self-care (01) ==
LOC: FTE 23:32
DX: K86.1 Other chronic pancreatitis (principal); Z76.5 Malingerer [conscious simulation]; Z87.891 Personal history of nicotine dependence
CPT/HCPCS: 36415; 80053; 83690; 85025; 96374; 96375; J2270; J2405; J7030; Z7502